=== PATIENT | female | born 1935 | race Caucasian/White ===

== ENCOUNTER → 2018-03-30 11:27 | Outpatient (CLI) | payer OTHER, MEDICARE, SELFPAY ==
[2018-03-30 12:31] LABS: Add Manual Diff / Slide Review NO; Basophils Percent Auto 0.3 % (0-2); Eosinophils Percent Auto 0.5 % (2-4); Hematocrit 34.8 % (36-46); Hemoglobin 11.8 g/dL (12.0-16.0); Lymphocytes Percent Auto 25.2 % (25-40); Mean Corpuscular HGB Conc 33.9 % (30-36); Mean Corpuscular Hemoglobin 33.6 PG (26-34); Mean Corpuscular Volume 99.3 fL (80-100); Neutrophils Absolute Auto 2800 /uL (3000-5900); Platelet Count 327 X10^3/uL (150-400); Red Blood Cell Count 3.51 X10^6/uL (4.0-5.2); Red Cell Distribution Width 12.9 % (11.6-14.8); White Blood Cell Count 4.6 X10^3/uL (4.5-11.0)
[2018-03-30 13:41] LABS: Alanine Aminotransferase 32 IU/L (9-52); Albumin 4.3 g/dL (3.5-5.0); Albumin Globulin Ratio 1.7 (1.0-2.8); Alkaline Phosphatase 65 U/L (38-126); Aspartate Aminotransferase 44 IU/L (14-36); BUN Creatinine Ratio 22.7 (6-22); Bilirubin Total 0.5 mg/dL (0.2-1.3); Blood Urea Nitrogen 25 mg/dL (7-17); Calcium 9.9 mg/dL (8.4-10.2); Carbon Dioxide 28 mmol/L (22-32); Chloride 100 mmol/L (98-107); Estimated Glomerular Filt Rate 47.8 mL/min (>60); Globulin 2.6 g/dL (1.7-4.1); Glucose 78 mg/dL (80-110); HEMOLYSIS < 15 (0-50); Lactate Dehydrogenase 664 U/L (313-618); Potassium 4.8 mmol/L (3.4-5.1); Sodium 136 mmol/L (137-145); Total Protein 6.9 g/dL (6.3-8.2)
[2018-03-30 13:55] LABS: Free T4, Direct Thyroxine 1.11 ng/dL (0.78-2.19)
[2018-03-30 14:08] LABS: Thyroid Stimulating Hormone 0.11 uIU/mL (0.47-4.68)
== END ==
PROVIDERS: Family Provider Nurse Practitioner Gerontology; PCP Family Medicine; Visit Provider Family Medicine
DX: D45 Polycythemia vera (principal); E03.9 Hypothyroidism, unspecified
CPT/HCPCS: 36415; 80053; 83615; 84439; 84443; 85025

== ENCOUNTER → 2018-05-10 11:54 | Outpatient (CLI) | payer OTHER, MEDICARE, SELFPAY ==
[2018-05-10 12:37] LABS: Add Manual Diff / Slide Review NO; Basophils Percent Auto 0.2 % (0-2); Eosinophils Percent Auto 0.4 % (2-4); Hematocrit 36.1 % (36-46); Hemoglobin 12.2 g/dL (12.0-16.0); Lymphocytes Percent Auto 21.1 % (25-40); Mean Corpuscular HGB Conc 33.7 % (30-36); Mean Corpuscular Hemoglobin 33.3 PG (26-34); Mean Corpuscular Volume 98.8 fL (80-100); Neutrophils Absolute Auto 3300 /uL (3000-5900); Neutrophils Percent Auto 67.3 % (50-75); Platelet Count 301 X10^3/uL (150-400); Red Blood Cell Count 3.65 X10^6/uL (4.0-5.2)
[2018-05-10 12:57] LABS: Alanine Aminotransferase 37 IU/L (9-52); Albumin 4.3 g/dL (3.5-5.0); Albumin Globulin Ratio 1.6 (1.0-2.8); Alkaline Phosphatase 65 U/L (38-126); Aspartate Aminotransferase 61 IU/L (14-36); BUN Creatinine Ratio 19.2 (6-22); Bilirubin Total 0.4 mg/dL (0.2-1.3); Blood Urea Nitrogen 23 mg/dL (7-17); Calcium 9.5 mg/dL (8.4-10.2); Carbon Dioxide 28 mmol/L (22-32); Chloride 102 mmol/L (98-107); Estimated Glomerular Filt Rate 43.1 mL/min (>60); Globulin 2.7 g/dL (1.7-4.1); Glucose 86 mg/dL (80-110); HEMOLYSIS 15 (0-50); Lactate Dehydrogenase 748 U/L (313-618); Potassium 4.2 mmol/L (3.4-5.1); Sodium 140 mmol/L (137-145)
[2018-05-10 14:39] LABS: Thyroid Stimulating Hormone 0.08 uIU/mL (0.47-4.68)
[2018-05-10 15:47] LABS: Free T4, Direct Thyroxine 1.19 ng/dL (0.78-2.19)
== END ==
PROVIDERS: Family Provider Nurse Practitioner Gerontology; PCP Family Medicine; Referring Provider Internal Medicine Cardiovascular Disease; Visit Provider Nurse Practitioner Gerontology
DX: D45 Polycythemia vera (principal); E03.9 Hypothyroidism, unspecified
CPT/HCPCS: 36415; 80053; 83615; 84439; 84443; 85025

== ENCOUNTER → 2018-06-23 10:02 | Outpatient (CLI) | payer OTHER, SELFPAY ==
[2018-06-23 11:35] LABS: Add Manual Diff / Slide Review NO; Basophils Percent Auto 0.2 % (0-2); Eosinophils Percent Auto 0.5 % (2-4); Hematocrit 35.5 % (36-46); Hemoglobin 11.9 g/dL (12.0-16.0); Lymphocytes Percent Auto 18.9 % (25-40); Mean Corpuscular HGB Conc 33.5 % (30-36); Mean Corpuscular Hemoglobin 32.8 PG (26-34); Mean Corpuscular Volume 97.8 fL (80-100); Monocytes Percent Auto 13.9 % (3-14); Neutrophils Absolute Auto 3800 /uL (3000-5900); Neutrophils Percent Auto 66.5 % (50-75); Platelet Count 320 X10^3/uL (150-400); Red Blood Cell Count 3.63 X10^6/uL (4.0-5.2); Red Cell Distribution Width 12.9 % (11.6-14.8); White Blood Cell Count 5.8 X10^3/uL (4.5-11.0)
[2018-06-23 11:58] LABS: Alanine Aminotransferase 33 IU/L (9-52); Albumin 4.1 g/dL (3.5-5.0); Albumin Globulin Ratio 1.5 (1.0-2.8); Alkaline Phosphatase 68 U/L (38-126); Aspartate Aminotransferase 55 IU/L (14-36); BUN Creatinine Ratio 19.2 (6-22); Bilirubin Total 0.4 mg/dL (0.2-1.3); Blood Urea Nitrogen 23 mg/dL (7-17); Calcium 9.5 mg/dL (8.4-10.2); Carbon Dioxide 30 mmol/L (22-32); Chloride 101 mmol/L (98-107); Estimated Glomerular Filt Rate 43.1 mL/min (>60); Globulin 2.8 g/dL (1.7-4.1); Glucose 72 mg/dL (80-110); HEMOLYSIS < 15 (0-50); Potassium 4.3 mmol/L (3.4-5.1); Sodium 139 mmol/L (137-145); Total Protein 6.9 g/dL (6.3-8.2)
== END ==
PROVIDERS: PCP Family Medicine; Visit Provider Internal Medicine Cardiovascular Disease
DX: R06.02 Shortness of breath (principal)
CPT/HCPCS: 36415; 80053; 83880; 85025

== ENCOUNTER → 2018-07-07 15:49 | Outpatient (CLI) | payer OTHER, SELFPAY ==
--- NOTE | 2018-07-07 15:52 | DI.RAD.S_ITS ---
PROCEDURE: XR CHEST 2V INDICATIONS: shortness of breath on exertion TECHNIQUE: 2 views of the chest were acquired. COMPARISON: [facility], CHEST 2 VIEW, 03/20/2013, 15:26. [facility], , CHEST 2 VIEW, 03/05/2014, 13:51. FINDINGS: Surgical changes and devices: Stable positioning of left chest AICD. Lungs and pleura: No pleural effusions or pneumothorax. Lungs are clear, aside from minimal basilar subsegmental atelectasis.. Mediastinum: Mediastinal contours are normal. Heart size is normal. Bones and chest wall: No suspicious bony abnormalities. Soft tissues appear unremarkable. IMPRESSION: No acute cardiopulmonary disease. Dictated by: Ed Kruse [facility] Interpreted: Freddy Carrasco MD on 07/07/2018 at 16:09 Approved by: Freddy Carrasco M.D. on 07/07/2018 at 16:45
== END ==
PROVIDERS: PCP Family Medicine; Visit Provider Internal Medicine Cardiovascular Disease
DX: R06.02 Shortness of breath (principal)
CPT/HCPCS: 71046

== ENCOUNTER → 2018-08-01 12:44 | Outpatient (CLI) | payer OTHER, SELFPAY ==
[2018-08-01 13:53] LABS: Erythrocyte Sedimentation Rate 15 MM/HR (0-20)
[2018-08-01 19:05] LABS: C-Reactive Protein Quant < 0.5 mg/dL (<1.0)
== END ==
PROVIDERS: Family Provider Nurse Practitioner Gerontology; PCP Family Medicine; Visit Provider Family Medicine
DX: E03.9 Hypothyroidism, unspecified (principal); M25.551 Pain in right hip; M25.552 Pain in left hip
CPT/HCPCS: 36415; 84443; 85651; 86140

== ENCOUNTER → 2018-08-18 10:48 | Outpatient (CLI) | payer OTHER, SELFPAY ==
--- NOTE | 2018-08-18 | DI.MG.S_ITS ---
BILATERAL DIGITAL SCREENING MAMMOGRAM 3D/2D WITH CAD: 08/18/2018 CLINICAL: Routine screening. Comparison is made to exams dated: 08/02/2017 mammogram, 07/29/2016 mammogram, and 07/28/2015 mammogram - [facility]. There are scattered fibroglandular elements in both breasts. Current study was also evaluated with a Computer Aided Detection (CAD) system. No significant masses, calcifications, or other findings are seen in either breast. There has been no significant interval change. IMPRESSION: NEGATIVE There is no mammographic evidence of malignancy. A 1 year screening mammogram is recommended. This exam was interpreted at Station ID: [id number]. NOTE: For mammograms, a report in lay terms will be sent to the patient. Approximately 15% of breast malignancies will not be visualized mammographically. In the management of a palpable breast mass, a negative mammogram must not discourage biopsy of a clinically suspicious lesion. Electronically Signed By: Benita alanis/joni:08/21/2018 08:33:48 letter sent: Normal Exam ACR BI-RADS Category 1: Negative [id number]
== END ==
PROVIDERS: Family Provider Nurse Practitioner Gerontology; PCP Family Medicine; Visit Provider Family Medicine
DX: Z12.31 Encounter for screening mammogram for malignant neoplasm of breast (principal)
CPT/HCPCS: 77063; 77067

== ENCOUNTER → 2018-11-03 14:28 | Outpatient (CLI) | payer OTHER, SELFPAY ==
[2018-11-03 15:16] LABS: Add Manual Diff / Slide Review NO; Basophils Percent Auto 0.3 % (0-2); Eosinophils Percent Auto 0.5 % (2-4); Hematocrit 37.9 % (36-46); Hemoglobin 12.6 g/dL (12.0-16.0); Lymphocytes Percent Auto 21.3 % (25-40); Mean Corpuscular HGB Conc 33.1 % (30-36); Mean Corpuscular Hemoglobin 33.2 PG (26-34); Mean Corpuscular Volume 100.1 fL (80-100); Monocytes Percent Auto 14.4 % (3-14); Neutrophils Absolute Auto 3300 /uL (1500-7000); Neutrophils Percent Auto 63.5 % (50-75); Platelet Count 313 X10^3/uL (150-400); Red Blood Cell Count 3.78 X10^6/uL (4.0-5.2); Red Cell Distribution Width 12.9 % (11.6-14.8); White Blood Cell Count 5.2 X10^3/uL (4.5-11.0)
[2018-11-03 15:35] LABS: Alanine Aminotransferase 29 IU/L (9-52); Albumin 4.7 g/dL (3.5-5.0); Albumin Globulin Ratio 1.7 (1.0-2.8); Alkaline Phosphatase 71 U/L (38-126); Aspartate Aminotransferase 43 IU/L (14-36); BUN Creatinine Ratio 23.3 (6-22); Bilirubin Total 0.3 mg/dL (0.2-1.3); Blood Urea Nitrogen 28 mg/dL (7-17); Calcium 10.1 mg/dL (8.4-10.2); Carbon Dioxide 29 mmol/L (22-32); Chloride 98 mmol/L (98-107); Estimated Glomerular Filt Rate 43.1 mL/min (>60); Globulin 2.8 g/dL (1.7-4.1); Glucose 96 mg/dL (80-110); HEMOLYSIS < 15 (0-50); Lactate Dehydrogenase 647 U/L (313-618); Potassium 4.7 mmol/L (3.4-5.1); Sodium 139 mmol/L (137-145); Total Protein 7.5 g/dL (6.3-8.2)
== END ==
PROVIDERS: Family Provider Family Medicine; PCP Family Medicine; Visit Provider Nurse Practitioner Gerontology
DX: D45 Polycythemia vera (principal); D75.81 Myelofibrosis
CPT/HCPCS: 36415; 80053; 83615; 85025

== ENCOUNTER → 2018-11-21 10:44 | Outpatient (CLI) | payer OTHER, SELFPAY ==
[2018-11-21 12:59] LABS: Thyroid Stimulating Hormone 0.11 uIU/mL (0.47-4.68)
[2018-11-21 15:04] LABS: Free T3, Triiodothyronine Free 3.15 pg/mL (2.77-5.27); Free T4, Direct Thyroxine 1.48 ng/dL (0.78-2.19)
== END ==
PROVIDERS: PCP Family Medicine; Visit Provider Family Medicine
DX: E03.9 Hypothyroidism, unspecified (principal); E04.1 Nontoxic single thyroid nodule
CPT/HCPCS: 36415; 84439; 84443; 84481

== ENCOUNTER → 2018-12-27 12:47 | Outpatient (CLI) | payer OTHER, SELFPAY ==
[2018-12-27 15:19] LABS: Thyroid Stimulating Hormone 2.33 uIU/mL (0.47-4.68)
== END ==
PROVIDERS: PCP Family Medicine; Visit Provider Family Medicine
DX: E03.9 Hypothyroidism, unspecified (principal)
CPT/HCPCS: 36415; 84443

== ENCOUNTER 2019-04-20 11:53 | Emergency (ER) | payer OTHER, SELFPAY ==
[2019-04-20 12:00] VITALS: BP 143/87; PULSE 60; RESP 20; TEMP 36.6; O2SAT 100
--- NOTE | 2019-04-20 12:14 | ED.FALL ---
HPI - Fall <Gaby Anand PA-C - Last Filed: 04/20/19 17:09> General Chief Complaint: Fall Stated Complaint: fell on to her face, broke her teeth,mltp complain Time Seen by Provider: 04/20/19 11:56 Source: patient Mode of arrival: ambulatory Limitations: no limitations History of Present Illness HPI Narrative: This 84-year-old female states she was walking and pushed over by a dog, pitching forward onto the cement. She hit her hands and lips and chipped some of her teeth. She denies any head contusion, LOC, new neck pain. She denies any headache, n/v or vision change, but states she hit her face hard. She actually went to the dentist 1st due to the chipped teeth and came from there. She states that her lips and teeth are sore, has not noticed other facial pain. She denies pain in her wrists, arms or shoulders, only in the hands. She states her knees are little bit scraped but does not think injured. She was able to walk after she was helped up. She has chronic back pain and sciatica that make walking more difficult but states she does not think any new injury to her back. Related Data Home Medications Medication Instructions Recorded Confirmed MULTIVITAMIN (One Daily 1 tab PO QDAY #0 07/17/12 04/18/19 Multivitamin) [CALCIUM/MG/ZINC] #0 01/05/18 04/18/19 [FLAXSEED] #0 01/05/18 04/18/19 [TURMERIC] #0 01/05/18 04/18/19 magnesium oxide 500 mg PO #0 01/05/18 04/18/19 cholecalciferol (vitamin D3) 1,000 2,000 unit PO QDAY #0 tab 06/19/18 04/18/19 unit tablet fluorouracil 0.5 % topical cream 1 applictn TOP DAILY 08/14/18 04/18/19 furosemide 40 mg tablet 20 mg PO QDAY PRN tab 08/14/18 04/18/19 metronidazole 0.75 % topical gel 1 applictn TOP BID 08/14/18 04/18/19 potassium gluconate 595 mg (99 mg) 595 mg PO DAILY tab 08/14/18 04/18/19 tablet tretinoin 0.025 % topical cream 1 applictn TOP BEDTIME 08/14/18 04/18/19 alpha lipoic acid BID 11/06/18 04/18/19 omeprazole 20 mg capsule,delayed 20 mg PO BID cap 12/15/18 04/18/19 release Previous Rx's Medication Instructions Recorded Disabled Parking Permit ea #1 01/05/18 Disabled Parking Permit ea #1 01/09/18 Jakafi 10 mg PO BID #60 tab 12/07/18 escitalopram 5 mg tablet 5 mg PO DAILY #90 tab 01/10/19 diltiazem CD 120 mg 120 mg PO QDAY #90 tab 01/16/19 capsule,extended release 24 hr levothyroxine 25 mcg tablet 25 mcg PO DAILY #90 tab 02/07/19 dabigatran etexilate 150 mg capsule 150 mg PO BID #180 cap 03/14/19 gabapentin 600 mg tablet 600 mg PO BID #180 tab 03/26/19 oxycodone 5 mg PO Q8H PRN #8 tab 04/20/19 Allergies Allergy/AdvReac Type Severity Reaction Status Date / Time adhesive [ADHESIVE] Allergy Mild SENSITIVE Verified 04/20/19 12:12 hydroxyurea [HYDROXYUREA] Allergy Mild ITCHY Verified 04/20/19 12:12 hydroxyzine [HYDROXYZINE] Allergy Mild ITCHY Verified 04/20/19 12:12 codeine [CODEINE] Allergy Unknown dizzyness/f Verified 04/20/19 12:12 ainting Review of Systems <Gaby Anand PA-C - Last Filed: 04/20/19 17:09> Review of Systems ROS Unobtainable: All systems reviewed & are unremarkable except as noted in HPI and below Exam <Gaby Anand PA-C - Last Filed: 04/20/19 17:09> Narrative Exam Narrative: GENERAL APPEARANCE: Patient sitting comfortably, in no distress. HEENT: No scalp hematoma or ecchymoses, PERRL, EOMI, normal TMs and oropharynx. There are some chipped teeth left upper. She has an irregular 3-4 mm avulsion on the upper lip and an irregular 5 mm partly avulsed, shallow lac on the lower lip, each 1mm depth. No tenderness, visible or palpable abnormality of the facial bones NECK: Supple LUNGS: Clear to auscultation bilaterally. HEART: Rate and rhythm regular without murmur, normal S1 and S2, no S3 or S4. NEUROLOGIC: Alert and oriented, normal speech and coordination. Sensation grossly intact over the upper extremities VASCULAR: Bilateral hand fingertips are warm and pink with brisk cap refill MUSCULOSKELETAL: No point tenderness over the cervical, thoracic, or lumbar spine. Full Csp AROM. No tenderness over the upper arms, forearms, elbows or wrists. Tender over the right thenar eminence and proximal thumb. Strength in the thumb appears to be intact against resistance but tender with resisted movement. No point tenderness elsewhere over the right hand. Fisheries Technician strength intact. Left hand tender over the proximal thumb, thenar eminence and also over the hypothenar area. No tenderness over the fingers. Fisheries Technician is intact and thumb strength intact against resistance. DERMATOLOGIC: Abrasions over the right palm thenar eminence and left palmar surface hypothenar and thenar areas with small avulsions, no active bleeding, no lacerations, avulsions or ecchymoses visualized elsewhere aside from facial areas as above Initial Vital Signs Initial Vital Signs: Vital Signs Temperature 97.9 F 04/20/19 12:00 Pulse Rate 60 04/20/19 12:00 Respiratory Rate 20 04/20/19 12:00 Blood Pressure 143/87 H 04/20/19 12:00 Pulse Oximetry 100 04/20/19 12:00 <Gila Curtis DO - Last Filed: 04/21/19 07:50> Initial Vital Signs Initial Vital Signs: Vital Signs Temperature 97.9 F 04/20/19 12:00 Pulse Rate 60 04/20/19 12:00 Respiratory Rate 20 04/20/19 12:00 Blood Pressure 143/87 H 04/20/19 12:00 Pulse Oximetry 100 04/20/19 12:00 PFSH <Gaby Anand PA-C - Last Filed: 04/20/19 17:09> Medical History Idiopathic peripheral autonomic neuropathy, unspecified (Chronic) Malignant neoplasm of colon, unspecified (Resolved ~2007) Cyst of thyroid (Chronic) Sciatica (Chronic) Low back pain (Chronic) Chronic atrial fibrillation (Chronic) Acquired hypothyroidism (Chronic 02/01/13) Essential hypertension (Chronic) Polycythemia vera (Chronic) Infarction of spleen (Resolved 03/15/14) 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/14) Myelofibrosis (Chronic 05/15/14) Stage 3 chronic kidney disease (Chronic 12/04/14) Postherpetic neuralgia (Acute ~2012) Arthralgia (Chronic) Cardiac arrhythmia (Chronic) Colorectal cancer, stage I (Chronic ~2007) Cutaneous lupus erythematosus (Chronic ~2002) DJD (degenerative joint disease) (Chronic) Disrupted sleep-wake cycle (Chronic) Myelofibrosis (Chronic) Oral lichen planus (Chronic ~2009) Peripheral neuropathy (Chronic ~2012) Polycythemia vera (Chronic ~2006) Surgical History History of bone marrow biopsy (Resolved ~2013) History of local excision of skin lesion (Resolved) History of thyroid surgery (Resolved) S/P medial meniscectomy of right knee (Resolved ~1999) Presence of cardiac pacemaker (~2005) Status post colectomy (~2007) Status post hysterectomy (~1974) Social History marital status: Smoking Status: Never smoker alcohol intake: current (ON OCCASION ) substance use type: does not use well-balanced diet: daily or most days Social History marital status: Smoking Status: Never smoker alcohol intake: current (ON OCCASION ) substance use type: does not use well-balanced diet: daily or most days Course <Gaby Anand PA-C - Last Filed: 04/20/19 17:09> Additional Information: Discussed injuries at length with patient due to her being on anticoagulant. She repeatedly denies any head contusion, neck contusion, neurologic changes. She states that she hit her lip but not the rest of her face or head, did not break glasses. Elected not to do head CT based on her clear history. Discussed with she and her need to return if any new symptoms such as vision change, vomiting, headache, mental status change and they are both agreeable. Advised follow-up with PCP in the next few days for recheck Orders Ordered: Discontinued Medications Oxycodone HCl (Percolone) 5 mg PO NOW ONE Stop: 04/20/19 13:08 Last Admin: 04/20/19 13:18 Dose: 5 mg Vital Signs - 8 hr 04/20/19 12:00 04/20/19 14:04 04/20/19 14:17 Temperature 97.9 F Pulse Rate 60 63 56 L Respiratory Rate 20 16 15 Blood Pressure 143/87 H Blood Pressure [Right Arm] 160/83 H 132/77 Pulse Oximetry 100 100 100 <Gila Curtis DO - Last Filed: 04/21/19 07:50> Orders Ordered: Discontinued Medications Oxycodone HCl (Percolone) 5 mg PO NOW ONE Stop: 04/20/19 13:08 Last Admin: 04/20/19 13:18 Dose: 5 mg Vital Signs - 8 hr 04/20/19 12:00 04/20/19 14:04 04/20/19 14:17 Temperature 97.9 F Pulse Rate 60 63 56 L Respiratory Rate 20 16 15 Blood Pressure 143/87 H Blood Pressure [Right Arm] 160/83 H 132/77 Pulse Oximetry 100 100 100 MDM - Fall <Gaby Anand PA-C - Last Filed: 04/20/19 17:09> Imaging Data R. hand: Radiologist's impression: [address] [address] XRay Report Signed Patient: Isela Haney LMR#: [id number] : [id number]:[id number] Age/Sex: 84 / FDate of Service: 04/20/19 Loc: ED Accession Number: [id number] Procedure: XR hand LT min 3V Ordering Provider: Gaby Anand P.A-C PROCEDURE: XR HAND LT MIN 3V INDICATIONS: fall, thenar pain TECHNIQUE: 3 views of the hand(s) acquired. COMPARISON: [facility], , HAND 3V LEFT, 11/12/2011, 12:20. FINDINGS: Bones: No fractures or dislocations. Carpal bones are normally aligned. No suspicious bony lesions. Soft tissues: No suspicious soft tissue calcifications. IMPRESSION: Arthritic change, no acute trauma found. Dictated by: Freddy Carrasco M.D. on 04/20/2019 at 14:02 Approved by: Freddy Carrasco M.D. on 04/20/2019 at 14:02 L. hand: Radiologist's impression: [address] [place] [address] XRay Report Signed Patient: Isela Haney LMR#: [id number] : 7Acct:[id number] Age/Sex: 84 / FDate of Service: 04/20/19 Loc: ED Accession Number: [id number] Procedure: XR hand LT min 3V Ordering Provider: Gaby Anand P.A-C PROCEDURE: XR HAND LT MIN 3V INDICATIONS: fall, thenar pain TECHNIQUE: 3 views of the hand(s) acquired. COMPARISON: [facility], , HAND 3V LEFT, 11/12/2011, 12:20. FINDINGS: Bones: No fractures or dislocations. Carpal bones are normally aligned. No suspicious bony lesions. Soft tissues: No suspicious soft tissue calcifications. IMPRESSION: Arthritic change, no acute trauma found. Dictated by: Freddy Carrasco M.D. on 04/20/2019 at 14:02 Approved by: Freddy Carrasco M.D. on 04/20/2019 at 14:02 Discharge Plan Departure Patient Disposition: Home Clinical Impression: Avulsion, skin Contusion of hand Qualifiers: Encounter type: initial encounter Laterality: unspecified laterality Qualified Code(s): S60.229A - Contusion of unspecified hand, initial encounter Fall with injury Qualifiers: Encounter type: initial encounter Qualified Code(s): W19.XXXA - Unspecified fall, initial encounter Discharge Date/Time: 04/20/19 14:22 Interventions: ED Discharge Assessment Last Done: 04/20/19 14:21 Instructions: DI for Avulsion Laceration (Not Requiring Sutures), DI for Hand Pain Activity Restrictions/Additional Instructions: Please take your pain medicine as needed, but remember it can make you sleepy. Your x-rays showed significant arthritis which is likely inflamed due to the fall, but there was not a fracture. After discussion, we decided not to x-ray or scanned other areas such as your head or neck since you did not injure them in the fall. The torn skin on your lips should heal on it's own, please keep moisturized and protected with petroleum. As we talked about, you should return immediately/call 911 should you have new symptoms such as vision change, vomiting, headache confusion or mental changes. Otherwise, please follow-up with your PCP for recheck in a few days Prescriptions: New oxycodone 5 mg tablet 5 mg PO Q8H PRN (Reason: acute hand/wrist pain) Qty: 8 RF: 0 No Action MULTIVITAMIN (One Daily Multivitamin) 1 tab PO QDAY Qty: 0 RF: 0 [CALCIUM/MG/ZINC] Qty: 0 RF: 0 [FLAXSEED] Qty: 0 RF: 0 magnesium oxide 400 MG capsule 500 mg PO Qty: 0 RF: 0 [TURMERIC] Qty: 0 RF: 0 Disabled Parking Permit Qty: 1 RF: 0 Disabled Parking Permit Qty: 1 RF: 0 cholecalciferol (vitamin D3) [Vitamin D3] 1,000 unit tablet 2,000 unit PO QDAY Qty: 0 RF: 0 omeprazole 20 mg capsule,delayed release(DR/EC) 20 mg PO BID RF: 0 escitalopram oxalate 5 mg tablet 5 mg PO DAILY Qty: 90 RF: 1 diltiazem HCl 120 mg capsule,extended release 24hr 120 mg PO QDAY Qty: 90 RF: 3 levothyroxine 25 mcg tablet 25 mcg PO DAILY Qty: 90 RF: 2 Pradaxa 150 mg capsule 150 mg PO BID Qty: 180 RF: 3 gabapentin 600 mg tablet 600 mg PO BID Qty: 180 RF: 3 furosemide 40 mg tablet 20 mg PO QDAY PRN (Reason: water retention) RF: 0 potassium gluconate 595 mg (99 mg) tablet 595 mg PO DAILY RF: 0 fluorouracil 0.5 % cream 1 applictn TOP DAILY RF: 0 tretinoin 0.025 % cream 1 applictn TOP BEDTIME RF: 0 metronidazole 0.75 % gel 1 applictn TOP BID RF: 0 alpha lipoic acid 600 mg Capsule BID RF: 0 Jakafi 10 MG tablet 10 mg PO BID Qty: 60 RF: 3 Referrals: Jyoti Mcrae MD [Primary Care Provider] - <Gila Curtis DO - Last Filed: 04/21/19 07:50> Cosign ED Attending Coskeyonnaature Attestation: I was immediately available in the department for consultation. Documentation has been reviewed. I agree with assessment and plan.
--- NOTE | 2019-04-20 12:15 | DI.RAD.S_ITS ---
PROCEDURE: XR HAND RT MIN 3V INDICATIONS: fall, proximal MC pain TECHNIQUE: 3 views of the hand(s) acquired. COMPARISON: [facility], , HAND 3V LEFT, 11/12/2011, 12:20. FINDINGS: Bones: No fractures or dislocations. Carpal bones are normally aligned. No suspicious bony lesions. Soft tissues: No suspicious soft tissue calcifications. IMPRESSION: No trauma. Dictated by: Freddy Carrasco M.D. on 04/20/2019 at 14:02 Approved by: Freddy Carrasco M.D. on 04/20/2019 at 14:03
--- NOTE | 2019-04-20 12:34 | ED_ITS ---
HPI - Fall <Gaby Anand PA-C - Last Filed: 04/20/19 17:09> General Chief Complaint: Fall Stated Complaint: fell on to her face, broke her teeth,mltp complain Time Seen by Provider: 04/20/19 11:56 Source: patient Mode of arrival: ambulatory Limitations: no limitations History of Present Illness HPI Narrative: This 84-year-old female states she was walking and pushed over by a dog, pitching forward onto the cement. She hit her hands and lips and chipped some of her teeth. She denies any head contusion, LOC, new neck pain. She denies any headache, n/v or vision change, but states she hit her face hard. She actually went to the dentist 1st due to the chipped teeth and came from there. She states that her lips and teeth are sore, has not noticed other facial pain. She denies pain in her wrists, arms or shoulders, only in the hands. She states her knees are little bit scraped but does not think injured. She was able to walk after she was helped up. She has chronic back pain and sciatica that make walking more difficult but states she does not think any new injury to her back. Related Data Home Medications Medication Instructions Recorded Confirmed MULTIVITAMIN (One Daily 1 tab PO QDAY #0 07/17/12 04/18/19 Multivitamin) [CALCIUM/MG/ZINC] #0 01/05/18 04/18/19 [FLAXSEED] #0 01/05/18 04/18/19 [TURMERIC] #0 01/05/18 04/18/19 magnesium oxide 500 mg PO #0 01/05/18 04/18/19 cholecalciferol (vitamin D3) 1,000 2,000 unit PO QDAY #0 tab 06/19/18 04/18/19 unit tablet fluorouracil 0.5 % topical cream 1 applictn TOP DAILY 08/14/18 04/18/19 furosemide 40 mg tablet 20 mg PO QDAY PRN tab 08/14/18 04/18/19 metronidazole 0.75 % topical gel 1 applictn TOP BID 08/14/18 04/18/19 potassium gluconate 595 mg (99 mg) 595 mg PO DAILY tab 08/14/18 04/18/19 tablet tretinoin 0.025 % topical cream 1 applictn TOP BEDTIME 08/14/18 04/18/19 alpha lipoic acid BID 11/06/18 04/18/19 omeprazole 20 mg capsule,delayed 20 mg PO BID cap 12/15/18 04/18/19 release Previous Rx's Medication Instructions Recorded Disabled Parking Permit ea #1 01/05/18 Disabled Parking Permit ea #1 01/09/18 Jakafi 10 mg PO BID #60 tab 12/07/18 escitalopram 5 mg tablet 5 mg PO DAILY #90 tab 01/10/19 diltiazem CD 120 mg 120 mg PO QDAY #90 tab 01/16/19 capsule,extended release 24 hr levothyroxine 25 mcg tablet 25 mcg PO DAILY #90 tab 02/07/19 dabigatran etexilate 150 mg capsule 150 mg PO BID #180 cap 03/14/19 gabapentin 600 mg tablet 600 mg PO BID #180 tab 03/26/19 oxycodone 5 mg PO Q8H PRN #8 tab 04/20/19 Allergies Allergy/AdvReac Type Severity Reaction Status Date / Time adhesive [ADHESIVE] Allergy Mild SENSITIVE Verified 04/20/19 12:12 hydroxyurea [HYDROXYUREA] Allergy Mild ITCHY Verified 04/20/19 12:12 hydroxyzine [HYDROXYZINE] Allergy Mild ITCHY Verified 04/20/19 12:12 codeine [CODEINE] Allergy Unknown dizzyness/f Verified 04/20/19 12:12 ainting Review of Systems <Gaby Anand PA-C - Last Filed: 04/20/19 17:09> Review of Systems ROS Unobtainable: All systems reviewed & are unremarkable except as noted in HPI and below Exam <Gaby Anand PA-C - Last Filed: 04/20/19 17:09> Narrative Exam Narrative: GENERAL APPEARANCE: Patient sitting comfortably, in no distress. HEENT: No scalp hematoma or ecchymoses, PERRL, EOMI, normal TMs and oropharynx. There are some chipped teeth left upper. She has an irregular 3-4 mm avulsion on the upper lip and an irregular 5 mm partly avulsed, shallow lac on the lower lip, each 1mm depth. No tenderness, visible or palpable abnormality of the facial bones NECK: Supple LUNGS: Clear to auscultation bilaterally. HEART: Rate and rhythm regular without murmur, normal S1 and S2, no S3 or S4. NEUROLOGIC: Alert and oriented, normal speech and coordination. Sensation grossly intact over the upper extremities VASCULAR: Bilateral hand fingertips are warm and pink with brisk cap refill MUSCULOSKELETAL: No point tenderness over the cervical, thoracic, or lumbar spine. Full Csp AROM. No tenderness over the upper arms, forearms, elbows or wrists. Tender over the right thenar eminence and proximal thumb. Strength in the thumb appears to be intact against resistance but tender with resisted movement. No point tenderness elsewhere over the right hand. Anchorman strength intact. Left hand tender over the proximal thumb, thenar eminence and also over the hypothenar area. No tenderness over the fingers. Anchorman is intact and thumb strength intact against resistance. DERMATOLOGIC: Abrasions over the right palm thenar eminence and left palmar surface hypothenar and thenar areas with small avulsions, no active bleeding, no lacerations, avulsions or ecchymoses visualized elsewhere aside from facial areas as above Initial Vital Signs Initial Vital Signs: Vital Signs Temperature 97.9 F 04/20/19 12:00 Pulse Rate 60 04/20/19 12:00 Respiratory Rate 20 04/20/19 12:00 Blood Pressure 143/87 H 04/20/19 12:00 Pulse Oximetry 100 04/20/19 12:00 <Gila Curtis DO - Last Filed: 04/21/19 07:50> Initial Vital Signs Initial Vital Signs: Vital Signs Temperature 97.9 F 04/20/19 12:00 Pulse Rate 60 04/20/19 12:00 Respiratory Rate 20 04/20/19 12:00 Blood Pressure 143/87 H 04/20/19 12:00 Pulse Oximetry 100 04/20/19 12:00 PFSH <Gaby Anand PA-C - Last Filed: 04/20/19 17:09> Medical History Idiopathic peripheral autonomic neuropathy, unspecified (Chronic) Malignant neoplasm of colon, unspecified (Resolved ~2007) Cyst of thyroid (Chronic) Sciatica (Chronic) Low back pain (Chronic) Chronic atrial fibrillation (Chronic) Acquired hypothyroidism (Chronic 02/01/13) Essential hypertension (Chronic) Polycythemia vera (Chronic) Infarction of spleen (Resolved 03/15/14) 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/14) Myelofibrosis (Chronic 05/15/14) Stage 3 chronic kidney disease (Chronic 12/04/14) Postherpetic neuralgia (Acute ~2012) Arthralgia (Chronic) Cardiac arrhythmia (Chronic) Colorectal cancer, stage I (Chronic ~2007) Cutaneous lupus erythematosus (Chronic ~2002) DJD (degenerative joint disease) (Chronic) Disrupted sleep-wake cycle (Chronic) Myelofibrosis (Chronic) Oral lichen planus (Chronic ~2009) Peripheral neuropathy (Chronic ~2012) Polycythemia vera (Chronic ~2006) Surgical History History of bone marrow biopsy (Resolved ~2013) History of local excision of skin lesion (Resolved) History of thyroid surgery (Resolved) S/P medial meniscectomy of right knee (Resolved ~1999) Presence of cardiac pacemaker (~2005) Status post colectomy (~2007) Status post hysterectomy (~1974) Social History marital status: Smoking Status: Never smoker alcohol intake: current (ON OCCASION ) substance use type: does not use well-balanced diet: daily or most days Social History marital status: Smoking Status: Never smoker alcohol intake: current (ON OCCASION ) substance use type: does not use well-balanced diet: daily or most days Course <Gaby Anand PA-C - Last Filed: 04/20/19 17:09> Additional Information: Discussed injuries at length with patient due to her being on anticoagulant. She repeatedly denies any head contusion, neck contusion, neurologic changes. She states that she hit her lip but not the rest of her face or head, did not break glasses. Elected not to do head CT based on her clear history. Discussed with she and her need to return if any new symptoms such as vision change, vomiting, headache, mental status change and they are both agreeable. Advised follow-up with PCP in the next few days for recheck Orders Ordered: Discontinued Medications Oxycodone HCl (Percolone) 5 mg PO NOW ONE Stop: 04/20/19 13:08 Last Admin: 04/20/19 13:18 Dose: 5 mg Vital Signs - 8 hr 04/20/19 12:00 04/20/19 14:04 04/20/19 14:17 Temperature 97.9 F Pulse Rate 60 63 56 L Respiratory Rate 20 16 15 Blood Pressure 143/87 H Blood Pressure [Right Arm] 160/83 H 132/77 Pulse Oximetry 100 100 100 <Gila Curtis DO - Last Filed: 04/21/19 07:50> Orders Ordered: Discontinued Medications Oxycodone HCl (Percolone) 5 mg PO NOW ONE Stop: 04/20/19 13:08 Last Admin: 04/20/19 13:18 Dose: 5 mg Vital Signs - 8 hr 04/20/19 12:00 04/20/19 14:04 04/20/19 14:17 Temperature 97.9 F Pulse Rate 60 63 56 L Respiratory Rate 20 16 15 Blood Pressure 143/87 H Blood Pressure [Right Arm] 160/83 H 132/77 Pulse Oximetry 100 100 100 MDM - Fall <Gaby Anand PA-C - Last Filed: 04/20/19 17:09> Imaging Data R. hand: Radiologist's impression: [address] [address] XRay Report Signed Patient: Isela Haney LMR#: [id number] : [id number]:[id number] Age/Sex: 84 / FDate of Service: 04/20/19 Loc: ED Accession Number: [id number] Procedure: XR hand LT min 3V Ordering Provider: Gaby Anand P.A-C PROCEDURE: XR HAND LT MIN 3V INDICATIONS: fall, thenar pain TECHNIQUE: 3 views of the hand(s) acquired. COMPARISON: , , HAND 3V LEFT, 11/12/2011, 12:20. FINDINGS: Bones: No fractures or dislocations. Carpal bones are normally aligned. No suspicious bony lesions. Soft tissues: No suspicious soft tissue calcifications. IMPRESSION: Arthritic change, no acute trauma found. Dictated by: Freddy Carrasco M.D. on 04/20/2019 at 14:02 Approved by: Freddy Carrasco M.D. on 04/20/2019 at 14:02 L. hand: Radiologist's impression: [address] [place] [address] XRay Report Signed Patient: Isela Haney LMR#: [id number] : 7Acct:[id number] Age/Sex: 84 / FDate of Service: 04/20/19 Loc: ED Accession Number: [id number] Procedure: XR hand LT min 3V Ordering Provider: Gaby Anand P.A-C PROCEDURE: XR HAND LT MIN 3V INDICATIONS: fall, thenar pain TECHNIQUE: 3 views of the hand(s) acquired. COMPARISON: , , HAND 3V LEFT, 11/12/2011, 12:20. FINDINGS: Bones: No fractures or dislocations. Carpal bones are normally aligned. No suspicious bony lesions. Soft tissues: No suspicious soft tissue calcifications. IMPRESSION: Arthritic change, no acute trauma found. Dictated by: Freddy Carrasco M.D. on 04/20/2019 at 14:02 Approved by: Freddy Carrasco M.D. on 04/20/2019 at 14:02 Discharge Plan Departure Patient Disposition: Home Clinical Impression: Avulsion, skin Contusion of hand Qualifiers: Encounter type: initial encounter Laterality: unspecified laterality Qualified Code(s): S60.229A - Contusion of unspecified hand, initial encounter Fall with injury Qualifiers: Encounter type: initial encounter Qualified Code(s): W19.XXXA - Unspecified fall, initial encounter Discharge Date/Time: 04/20/19 14:22 Interventions: ED Discharge Assessment Last Done: 04/20/19 14:21 Instructions: DI for Avulsion Laceration (Not Requiring Sutures), DI for Hand Pain Activity Restrictions/Additional Instructions: Please take your pain medicine as needed, but remember it can make you sleepy. Your x-rays showed significant arthritis which is likely inflamed due to the fall, but there was not a fracture. After discussion, we decided not to x-ray or scanned other areas such as your head or neck since you did not injure them in the fall. The torn skin on your lips should heal on it's own, please keep moisturized and protected with petroleum. As we talked about, you should return immediately/call 911 should you have new symptoms such as vision change, vomiting, headache confusion or mental changes. Otherwise, please follow-up with your PCP for recheck in a few days Prescriptions: New oxycodone 5 mg tablet 5 mg PO Q8H PRN (Reason: acute hand/wrist pain) Qty: 8 RF: 0 No Action MULTIVITAMIN (One Daily Multivitamin) 1 tab PO QDAY Qty: 0 RF: 0 [CALCIUM/MG/ZINC] Qty: 0 RF: 0 [FLAXSEED] Qty: 0 RF: 0 magnesium oxide 400 MG capsule 500 mg PO Qty: 0 RF: 0 [TURMERIC] Qty: 0 RF: 0 Disabled Parking Permit Qty: 1 RF: 0 Disabled Parking Permit Qty: 1 RF: 0 cholecalciferol (vitamin D3) [Vitamin D3] 1,000 unit tablet 2,000 unit PO QDAY Qty: 0 RF: 0 omeprazole 20 mg capsule,delayed release(DR/EC) 20 mg PO BID RF: 0 escitalopram oxalate 5 mg tablet 5 mg PO DAILY Qty: 90 RF: 1 diltiazem HCl 120 mg capsule,extended release 24hr 120 mg PO QDAY Qty: 90 RF: 3 levothyroxine 25 mcg tablet 25 mcg PO DAILY Qty: 90 RF: 2 Pradaxa 150 mg capsule 150 mg PO BID Qty: 180 RF: 3 gabapentin 600 mg tablet 600 mg PO BID Qty: 180 RF: 3 furosemide 40 mg tablet 20 mg PO QDAY PRN (Reason: water retention) RF: 0 potassium gluconate 595 mg (99 mg) tablet 595 mg PO DAILY RF: 0 fluorouracil 0.5 % cream 1 applictn TOP DAILY RF: 0 tretinoin 0.025 % cream 1 applictn TOP BEDTIME RF: 0 metronidazole 0.75 % gel 1 applictn TOP BID RF: 0 alpha lipoic acid 600 mg Capsule BID RF: 0 Jakafi 10 MG tablet 10 mg PO BID Qty: 60 RF: 3 Referrals: Jyoti Mcrae MD [Primary Care Provider] - <Gila Curtis DO - Last Filed: 04/21/19 07:50> Cosign ED Attending Coskeyonnaature Attestation: I was immediately available in the department for consultation. Documentation has been reviewed. I agree with assessment and plan.
--- NOTE | 2019-04-20 12:59 | PC.NURSE ---
Pt would not allow this rn to visualize broken teeth. States has 2 broken from fall.
[2019-04-20] MEDS: OXYCODONE IR 5 MG TABLET PO (13:18)
[2019-04-20 14:04] VITALS: BP 160/83; PULSE 63; RESP 16; O2SAT 100
[2019-04-20 14:17] VITALS: BP 132/77; PULSE 56; RESP 15; O2SAT 100
== END 2019-04-20 14:22 | disposition home or self-care (01) ==
PROVIDERS: Emergency Provider Internal Medicine; PCP Family Medicine
DX: S60.229A Contusion of unspecified hand, initial encounter (principal); S60.512A Abrasion of left hand, initial encounter; S60.511A Abrasion of right hand, initial encounter; W54.1XXA Struck by dog, initial encounter; W19.XXXA Unspecified fall, initial encounter; Z79.01 Long term (current) use of anticoagulants; Z95.0 Presence of cardiac pacemaker
CPT/HCPCS: 73130; 99283

== ENCOUNTER → 2019-05-17 11:57 | Outpatient (CLI) | payer OTHER, SELFPAY ==
--- NOTE | 2019-05-17 12:00 | DI.RAD.S_ITS ---
PROCEDURE: XR HIP W PEL IF DONE LT MIN 4V INDICATIONS: Bilateral anterior hip pain with left hip clicking TECHNIQUE: AP pelvis with lateral view(s) of the bilateral hip(s). [facility] 13[facility]32. FINDINGS: Bones: No fractures or dislocations. Pelvic ring appears intact. No suspicious bony lesions. Soft tissues: The visualized bowel gas pattern is normal. No suspicious soft tissue calcifications. IMPRESSION: No radiographic abnormalities. If there is continued pain, followup exam or additional imaging such as MRI or CT could be performed for further assessment. Dictated by: Benita Malcolm M.D. on 05/17/2019 at 12:39 Approved by: Benita Malcolm M.D. on 05/17/2019 at 12:45
--- NOTE | 2019-05-17 12:00 | DI.RAD.S_ITS ---
PROCEDURE: XR LUMBAR SPINE 2-3V INDICATIONS: Chronic low back pain with worsening 2 months ago TECHNIQUE: 3 views of the lumbar spine were acquired. COMPARISON: [facility], , -SPINE 2-3 VIEWS, 12/19/2017, 11:11. FINDINGS: Bones: 5 [id number] vertebrae are present. There is normal bony alignment. No vertebral body compression fractures. Intervertebral disc space narrowing, endplate sclerosis, and facet sclerosis is present in the lower lumbar spine. These findings have a similar appearance to the comparison study dated 12/19/17. No suspicious bony lesions. Soft tissues: Overlying bowel gas pattern is normal. No suspicious soft tissue calcifications. IMPRESSION: Stable degenerative change of the lower lumbar spine. No acute compression deformities. Dictated by: Benita Malcolm M.D. on 05/17/2019 at 12:45 Approved by: Benita Malcolm M.D. on 05/17/2019 at 12:46
== END ==
PROVIDERS: PCP Family Medicine; Visit Provider Family Medicine
DX: M47.816 Spondylosis without myelopathy or radiculopathy, lumbar region (principal); M54.5 Low back pain; M25.551 Pain in right hip; M25.552 Pain in left hip
CPT/HCPCS: 72100; 73522

== ENCOUNTER → 2019-07-31 10:06 | Outpatient (CLI) | payer OTHER, SELFPAY ==
[2019-07-31 12:37] LABS: Vitamin D 25 Hydroxy (D3) 53.6 ng/mL (30.0-100.0)
[2019-07-31 12:56] LABS: HEMOLYSIS < 15 (0-50); Total Iron Binding Capacity 370 ug/dL (265-497); Transferrin 306 mg/dL (206-381)
[2019-07-31 14:48] LABS: Iron 101 ug/dL (37-170); Percent Iron Saturation 27 % (15-50)
[2019-07-31 15:20] LABS: Thyroid Stimulating Hormone 3.28 uIU/mL (0.47-4.68)
== END ==
PROVIDERS: PCP Family Medicine; Visit Provider Family Medicine
DX: E03.9 Hypothyroidism, unspecified (principal); R53.83 Other fatigue
CPT/HCPCS: 36415; 82306; 83540; 83550; 84443

== ENCOUNTER → 2019-08-20 13:50 | Outpatient (CLI) | payer OTHER, SELFPAY ==
--- NOTE | 2019-08-20 | DI.MG.S_ITS ---
BILATERAL DIGITAL SCREENING MAMMOGRAM 3D/2D WITH CAD: 08/20/2019 CLINICAL: Routine screening. Comparison is made to exams dated: 08/18/2018 mammogram, 08/02/2017 mammogram, and 07/29/2016 mammogram - [facility]. There are scattered fibroglandular elements in both breasts. Current study was also evaluated with a Computer Aided Detection (CAD) system. No significant masses, calcifications, or other findings are seen in either breast. There has been no significant interval change. IMPRESSION: NEGATIVE There is no mammographic evidence of malignancy. A 1 year screening mammogram is recommended. This exam was interpreted at Station ID: [id number]. NOTE: For mammograms, a report in lay terms will be sent to the patient. Approximately 15% of breast malignancies will not be visualized mammographically. In the management of a palpable breast mass, a negative mammogram must not discourage biopsy of a clinically suspicious lesion. Electronically Signed By: Lolis cintron/joni:08/20/2019 17:07:01 letter sent: Normal Exam ACR BI-RADS Category 1: Negative [id number]
== END ==
PROVIDERS: PCP Family Medicine; Visit Provider Family Medicine
DX: Z12.31 Encounter for screening mammogram for malignant neoplasm of breast (principal)
CPT/HCPCS: 77063; 77067

== ENCOUNTER 2019-08-23 06:56 | Outpatient (CLI) | payer OTHER, SELFPAY ==
[2019-08-23] VITALS (9 sets, daily range): BP systolic 117–142; BP diastolic 57–76; PULSE 50–62; RESP 16–18; TEMP 36.1; O2SAT 97–100
--- NOTE | 2019-08-23 06:57 | DI.RAD.S_ITS ---
PROCEDURE: PAIN L/S FACET INJ/BLK 1ST ANTOLIN COMPARISON: None. INDICATIONS: SPONDYLOSIS FINDINGS: Fluoroscopic spot filming was performed to verify placement of spinal needles at the L4-L5, L5-S1 level(s), as labeled on the films. Appropriate location(s) of the needle tip(s) was confirmed by injection of iodinated contrast. Dictated by: Hugo Warner M.D. on 08/23/2019 at 8:54 Approved by: Hugo Warner M.D. on 08/23/2019 at 8:55
[2019-08-23] MEDS: MIDAZOLAM 5 MG/5 ML VIAL IV (08:11)
[2019-08-23] MEDS: fentaNYL 100 MCG/2 ML INJ 50 MCG IV (08:12)
[2019-08-23] MEDS: LIDOCAINE 1% 20 ML 10 ML INJ (08:19)
[2019-08-23] MEDS: IOPAMIDOL 15 ML VIAL 3 ML INJ (08:19)
[2019-08-23] MEDS: BETAMETHASONE 30 MG/5 ML MDV 12 MG INJ (08:20)
[2019-08-23] MEDS: BUPIVACAINE 0.5% (PF) VIAL 2 ML INJ (08:20)
--- NOTE | 2019-08-23 08:23 | PC.NURSE ---
ASSISTING PT OFF TABLE AND TRANSPORTING TO POST PROC AREA IN STABLE CONDITION. PASSING RN CARE OF PT OFF TO VINCENZO Noguera RN
--- NOTE | 2019-08-23 08:37 | P.PCN_ITS ---
Procedures Date/Time Date of procedure: 08/23/19 Time of procedure: 08:37 General Procedure description: PREOP DIAGNOSIS 1. FACET ARTHROPATHY 2. AXIAL LBP 3. MULTILEVEL DDD POST OP DIAGNOSIS 1. FACET ARTHROPATHY 2. AXIAL LBP 3. MULTILEVEL DDD PROCEDURES 1. FLUORSCOPICALLY GUIDED CONTRAST CONTROLLED FACET JOINT INJECTIONS BILATERAL L4/5, L5/S1 PHYSICIAN: Bebeto Doshi, DO INDICATIONS Pj is referred by Dr. Mcrae for treatment of Axial LBP FINDINGS Multilevel Facet Arthropathy with Clinically significant axial LBP DESCRIPTION OF PROCEDURE Fluoroscopically guided, contrast-controlled bilateral L4/5, L5/S1 facet joint injections. Following review of allergy and review of potential side effects and complications, including, but not necessarily limited to, infection, allergic reaction, local tissue breakdown, stroke, temporary or permanent nerve injury, paralysis, and possible , the patient indicated that the patient understood and agreed to proceed. An informed consent document was signed by the patient, witnessed by a nurse, and placed in the patient's chart. Additionally, other treatment options including medications, modalities, and physical therapy were reviewed with the patient. After review of previous anaesthesic history and IV conscious sedation the patient was deemed safe to proceed with todays procedure with IV conscious sedation as ASA class II designation. Safety time-out was performed to confirm patient ID, procedure to be performed and site of procedure. IV sedation was accomplished with a combination of 2mg of Versed and 25mcg of Fentanyl was administered by the RN after DO order, titrated to patient comfort during the course of the procedure while the patient remained responsive to all verbal commands In the prone position, following sterile prep and drape of the lumbar region, the posterior aspect of the L4/5, L5/S1 facet joints were identified fluoroscopically. The skin was anesthetized via a 25-gauge 1.5-inch needle with 1% lidocaine solution into the corresponding facet joints. At this point, a 22- gauge 3.5-inch spinal needle was atraumatically introduced and advanced under fluoroscopic guidance into the corresponding facet joints. Following negative a spiration, injections of approximately 0.2-cc of Isovue 200 confirmed interarticular placement without vascular uptake. The identical procedure was then performed at the L4/5, L5/S1 facet joints on the left. Radiological data, including multiple fluoroscopic views of the lumbosacral spine, reveal a spinal needle at the L4/5, L5/S1 facet joints bilaterally. Subsequent views show flow of contrast material both superiorly and inferiorly within the joint space without vascular or intrathecal uptake. At this point, a total of 0.5 cc including a mixture of 0.25cc Marcaine and 0.25cc betamethasone was injected without complication into each of the corresponding facet joints. The patient tolerated the procedure well without signs or symptoms of complications prior to transfer to the recovery area continued monitoring without incident. The patient was then transferred to the recovery area where they were observed for an appropriate period of time after the injection. The patient reported a VAS score of 7 prior to the procedure and a post- procedure VAS of 0. Total Fluoroscopy Time: 20.3 seconds Total Conscious Sedation Time: 24min POST OP INSTRUCTIONS The patient was provided a Pain Log to continue to record their response to the target-specific procedure prior to follow-up visit with their referring physician. Additionally, specific post-injection care instructions and a contact number to our office were provided if concerns arise regarding possible complications associated with the procedure are suspected. Bebeto Doshi DO Complications: none
--- NOTE | 2019-08-23 09:50 | PC.NURSE ---
Late entry: Discharge note-Arrived for post procedure monitoring. Patient drowsy on arrival. Respirations regular and unlabored. VSS, O2 Sat WNL on RA. Pain level 0/10. No unusual numbness or tingling to lower extremities. Tolerating po without nausea. Able to stand and transfer to W/C without assist. Discharge instructions given and explained with good understanding by patient and spouse. Discharged to home w/c to car at 0900.
== END 2019-08-23 09:00 ==
LOC: RAD 06:56
PROVIDERS: PCP Family Medicine; Visit Provider Physical Medicine & Rehabilitation
DX: M47.816 Spondylosis without myelopathy or radiculopathy, lumbar region (principal); M47.817 Spondylosis without myelopathy or radiculopathy, lumbosacral region; M54.5 Low back pain; M51.36 Other intervertebral disc degeneration, lumbar region; M51.37 Other intervertebral disc degeneration, lumbosacral region
CPT/HCPCS: 64493; 64494; 99152; J0702; J2250; J3010

== ENCOUNTER → 2019-10-10 12:23 | Outpatient (CLI) | payer OTHER, SELFPAY ==
[2019-10-10 13:04] LABS: Add Manual Diff / Slide Review NO; Basophils Absolute Auto 0 /uL (0-100); Basophils Percent Auto 0.4 % (0-2); Eosinophils Absolute Auto 0 /uL (0-450); Eosinophils Percent Auto 0.5 % (2-4); Hematocrit 32.4 % (36-46); Hemoglobin 11.1 g/dL (12.0-16.0); Lymphocytes Absolute Auto 900 /uL (1100-4500); Lymphocytes Percent Auto 16.8 % (25-40); Mean Corpuscular HGB Conc 34.4 % (30-36); Mean Corpuscular Hemoglobin 34.6 PG (26-34); Mean Corpuscular Volume 100.5 fL (80-100); Monocytes Absolute Auto 600 /uL (0-900); Monocytes Percent Auto 11.3 % (3-14); Neutrophils Absolute Auto 3900 /uL (1500-7000); Platelet Count 325 X10^3/uL (150-400); Red Blood Cell Count 3.22 X10^6/uL (4.0-5.2); Red Cell Distribution Width 13.1 % (11.6-14.8); White Blood Cell Count 5.5 X10^3/uL (4.5-11.0)
[2019-10-10 14:08] LABS: B Type Natriuretic Peptide 314 (<100)
== END ==
PROVIDERS: PCP Family Medicine; Visit Provider Internal Medicine Cardiovascular Disease
DX: R06.00 Dyspnea, unspecified (principal)
CPT/HCPCS: 36415; 83880; 85025

== ENCOUNTER → 2019-10-23 12:52 | Outpatient (CLI) | payer OTHER, MEDICARE, SELFPAY ==
[2019-10-23 14:46] LABS: BUN Creatinine Ratio 19.3 (6-22); Blood Urea Nitrogen 27 mg/dL (7-17); Calcium 9.4 mg/dL (8.4-10.2); Carbon Dioxide 30 mmol/L (22-32); Chloride 99 mmol/L (98-107); Glucose 82 mg/dL (80-110); HEMOLYSIS < 15 (0-50); Potassium 3.9 mmol/L (3.4-5.1); Sodium 137 mmol/L (137-145)
== END ==
PROVIDERS: PCP Family Medicine; Visit Provider Internal Medicine Cardiovascular Disease
DX: I10 Essential (primary) hypertension (principal)
CPT/HCPCS: 36415; 80048

== ENCOUNTER → 2019-11-12 10:45 | Outpatient (CLI) | payer OTHER, SELFPAY ==
[2019-11-12 11:48] LABS: Blood Urea Nitrogen 28 mg/dL (7-17); Calcium 9.8 mg/dL (8.4-10.2); Carbon Dioxide 30 mmol/L (22-32); Chloride 103 mmol/L (98-107); Glucose 81 mg/dL (80-110); HEMOLYSIS < 15 (0-50); Potassium 4.3 mmol/L (3.4-5.1); Sodium 139 mmol/L (137-145)
== END ==
PROVIDERS: PCP Family Medicine; Visit Provider Internal Medicine Cardiovascular Disease
DX: I10 Essential (primary) hypertension (principal)
CPT/HCPCS: 36415; 80048

== ENCOUNTER → 2020-04-07 10:19 | Outpatient (CLI) | payer OTHER, SELFPAY ==
[2020-04-07 16:28] LABS: Thyroid Stimulating Hormone 0.05 uIU/mL (0.47-4.68)
== END ==
PROVIDERS: PCP Family Medicine; Referring Provider Family Medicine; Visit Provider Family Medicine
DX: E03.9 Hypothyroidism, unspecified (principal)
CPT/HCPCS: 36415; 84443

== ENCOUNTER → 2020-05-02 10:57 | Outpatient (CLI) | payer OTHER, SELFPAY ==
--- NOTE | 2020-05-02 11:01 | DI.RAD.S_ITS ---
PROCEDURE: FL BARIUM SWALLOW INDICATIONS: Dysphagia of solids and liquids rule out motility disorder COMPARISON: None. FINDINGS: Function: There is normal esophageal peristalsis with minimal episodes of mild tertiary contractions resulting in delayed transit of ingested contrast. No elicited gastroesophageal reflux. Morphology: Air-contrast images demonstrate normal mucosal morphology. Single contrast views show no esophageal strictures, extrinsic mass effects, or diverticula. Limited images of the stomach demonstrate normal appearance. IMPRESSION: Very few episodes of mild tertiary esophageal contractions resulting in delayed transit of ingested contrast. Otherwise, unremarkable esophagram. Dictated by: Farrukh Craft M.D. on 05/02/2020 at 16:10 Approved by: Farrukh Craft M.D. on 05/02/2020 at 16:12
== END ==
PROVIDERS: PCP Family Medicine; Referring Provider Specialist; Visit Provider Specialist
DX: R13.10 Dysphagia, unspecified (principal)
CPT/HCPCS: 74220

== ENCOUNTER → 2020-05-06 11:56 | Outpatient (CLI) | payer OTHER, SELFPAY ==
[2020-05-06 12:50] LABS: Add Manual Diff / Slide Review NO; Basophils Absolute Auto 0 /uL (0-100); Basophils Percent Auto 0.3 % (0-2); Eosinophils Absolute Auto 0 /uL (0-450); Eosinophils Percent Auto 0.5 % (2-4); Hematocrit 34.6 % (36-46); Hemoglobin 11.7 g/dL (12.0-16.0); Lymphocytes Absolute Auto 1100 /uL (1100-4500); Lymphocytes Percent Auto 23.4 % (25-40); Mean Corpuscular HGB Conc 33.7 % (30-36); Mean Corpuscular Hemoglobin 33.8 PG (26-34); Mean Corpuscular Volume 100.1 fL (80-100); Monocytes Absolute Auto 700 /uL (0-900); Monocytes Percent Auto 14.2 % (3-14); Neutrophils Absolute Auto 2900 /uL (1500-7000); Neutrophils Percent Auto 61.6 % (50-75); Platelet Count 338 X10^3/uL (150-400); Red Blood Cell Count 3.45 X10^6/uL (4.0-5.2); Red Cell Distribution Width 13.3 % (11.6-14.8); White Blood Cell Count 4.7 X10^3/uL (4.5-11.0)
[2020-05-06 13:01] LABS: HEMOLYSIS < 15 (0-50)
[2020-05-06 13:15] LABS: NT-proBNP (BNP-Adult 18+) 304 pg/mL (<450)
[2020-05-06 13:38] LABS: BUN Creatinine Ratio 19.4 (6-22); Blood Urea Nitrogen 27 mg/dL (7-17); Calcium 9.8 mg/dL (8.4-10.2); Carbon Dioxide 28 mmol/L (22-32); Chloride 100 mmol/L (98-107); Estimated Glomerular Filt Rate 36.2 mL/min (>60); Glucose 85 mg/dL (80-110); Potassium 3.7 mmol/L (3.4-5.1); Sodium 137 mmol/L (137-145)
== END ==
PROVIDERS: PCP Family Medicine; Referring Provider Internal Medicine Cardiovascular Disease; Visit Provider Internal Medicine Cardiovascular Disease
DX: R06.02 Shortness of breath (principal)
CPT/HCPCS: 36415; 80048; 83880; 85025

== ENCOUNTER → 2020-05-21 09:42 | Outpatient (CLI) | payer OTHER, SELFPAY ==
[2020-05-21 13:37] LABS: Thyroid Stimulating Hormone < 0.015 uIU/mL (0.47-4.68)
== END ==
PROVIDERS: PCP Family Medicine; Referring Provider Family Medicine; Visit Provider Family Medicine
DX: E03.9 Hypothyroidism, unspecified (principal)
CPT/HCPCS: 36415; 84443

== ENCOUNTER 2020-06-20 21:33 | Inpatient (IN) | payer OTHER, MEDICARE, SELFPAY ==
[2020-06-20 22:02] VITALS: BP 137/64; PULSE 82; RESP 18; TEMP 38.4; O2SAT 92; BMI 22.3
--- NOTE | 2020-06-20 22:11 | DI.RAD.S_ITS ---
PROCEDURE: XR CHEST 1V INDICATIONS: eval for fever/pneumonia TECHNIQUE: One view of the chest was acquired. COMPARISON: [facility], CR, XR CHEST 2V, 07/07/2018, 15:31. FINDINGS: Surgical changes and devices: Dual lead cardiac pacer is unchanged. Lungs and pleura: New pulmonary radiopacities are present the right lung base. Mediastinum: Mediastinal contours appear normal. Heart size is mildly enlarged. Bones and chest wall: No suspicious bony lesions. Overlying soft tissues appear unremarkable. IMPRESSION: Mild cardiomegaly and right basilar pulmonary airspace opacities suspicious for aspiration/infection. Short interval followup is recommended with resolution of the patient's symptoms to ensure there is no underlying pulmonary pathology. Dictated by: Benita Malcolm M.D. on 06/21/2020 at 7:30 Approved by: Benita Malcolm M.D. on 06/21/2020 at 7:31
[2020-06-20 22:19] VITALS: TEMP 38.4
[2020-06-20] MEDS: ACETAMINOPHEN 325 MG TABLET 650 MG PO (22:19)
[2020-06-20] MEDS: SODIUM CHLORIDE 0.9% 1,000 ML 150 ML IV (22:19)
[2020-06-20 22:24] LABS: Add Manual Diff / Slide Review NO; Basophils Absolute Auto 0 /uL (0-100); Basophils Percent Auto 0.3 % (0-2); Eosinophils Absolute Auto 0 /uL (0-450); Hematocrit 28.1 % (36-46); Hemoglobin 9.6 g/dL (12.0-16.0); Lymphocytes Absolute Auto 500 /uL (1100-4500); Lymphocytes Percent Auto 5.3 % (25-40); Mean Corpuscular HGB Conc 34.2 % (30-36); Mean Corpuscular Hemoglobin 33.9 PG (26-34); Mean Corpuscular Volume 99.3 fL (80-100); Monocytes Absolute Auto 800 /uL (0-900); Monocytes Percent Auto 8.9 % (3-14); Neutrophils Absolute Auto 8000 /uL (1500-7000); Neutrophils Percent Auto 85.5 % (50-75); Platelet Count 246 X10^3/uL (150-400); Red Blood Cell Count 2.84 X10^6/uL (4.0-5.2); Red Cell Distribution Width 13.3 % (11.6-14.8); White Blood Cell Count 9.4 X10^3/uL (4.5-11.0)
[2020-06-20 22:26] LABS: INR 1.3 (0.9-1.3); Prothrombin Time 15.4 SECONDS (10.1-12.7)
[2020-06-20 22:28] LABS: PTT Partial Thromboplastin Tim 53 SECONDS (26.4-36.2)
[2020-06-20 22:31] VITALS: PULSE 76; RESP 22; O2SAT 91
[2020-06-20 22:37] LABS: Creatine Kinase 149 U/L (30-135); Ethanol (ETOH) < 10 mg/dL; Lipase 76 U/L (23-300)
[2020-06-20 22:38] LABS: Alanine Aminotransferase 55 IU/L (<35); Albumin 4.1 g/dL (3.5-5.0); Albumin Globulin Ratio 1.3 (1.0-2.8); Alkaline Phosphatase 83 U/L (38-126); Aspartate Aminotransferase 108 IU/L (14-36); BUN Creatinine Ratio 16.9 (6-22); Bilirubin Total 0.8 mg/dL (0.2-1.3); Blood Urea Nitrogen 26 mg/dL (7-17); Calcium 8.7 mg/dL (8.4-10.2); Carbon Dioxide 26 mmol/L (22-32); Chloride 95 mmol/L (98-107); Estimated Glomerular Filt Rate 32.2 mL/min (>60); Globulin 3.2 g/dL (1.7-4.1); Glucose 119 mg/dL (80-110); HEMOLYSIS 19 (0-50); Potassium 3.3 mmol/L (3.4-5.1); Sodium 130 mmol/L (137-145); Total Protein 7.3 g/dL (6.3-8.2)
[2020-06-20 22:49] LABS: Procalcitonin 0.24 ng/mL (<0.5); Troponin I 0.024 ng/mL (0.01-0.034)
[2020-06-20 22:52] LABS: CKMB % Relative Index 0.2 % (1.5-5.0); Creatine Kinase MB 0.37 ng/mL (<2.37)
[2020-06-20 22:57] LABS: Ammonia (NH3) < 9 umol/L (9-30)
[2020-06-20 23:00] VITALS: BP 120/63; PULSE 79; RESP 28; O2SAT 93
--- NOTE | 2020-06-20 23:06 | ED_ITS ---
HPI - General Adult General Chief complaint: Fever Stated complaint: unsteady on legs, weakness Time Seen by Provider: 06/20/20 21:50 Source: patient and family () Mode of arrival: Ambulatory Limitations: altered mental status History of Present Illness HPI narrative: Patient is an 85-year-old female. History of atrial fibrillation. Is on anticoagulation. Also has a history of hypothyroidism. Came in for evaluation with her for weakness in her lower extremities. Patient states that she has been weak in her lower extremities for many weeks now if not months. She has seen her primary doctor. She states that she has been seen by Orthopedics and has had injections in her back. She states that she has had problems getting around at home. She does use a cane and also uses furniture to get around. She states that today for an unknown reason she is became very fatigued. She states that she slid off the bench that she was sitting on. She states she did not hit her head. There was no loss of consciousness. She states she did not fall she just became very weak and slid off the bench. She then laid on the ground for period of time. She states that she was so weak that she could not stand up. Her states that he could not help her up. He contacted the nurse advice line with her insurance company and while he was on the phone with the nurse advice line the patient was able to stand up. The patient states that for some unknown reason again she regained strength in her lower extremities and was able to stand. Patient states that she feels extremely fatigued. She admits that this potentially is not new but it is worse over the past 24-48 hours. Denies any other associated symptoms. Related Data Home Medications Medication Instructions Recorded Confirmed multivitamin 1 tab PO DAILY #0 07/17/12 06/21/20 flaxseed oil 1,000 mg PO DAILY #0 01/05/18 06/21/20 magnesium oxide 500 mg PO DAILY #0 01/05/18 06/21/20 cholecalciferol (vitamin D3) 25 2,000 unit PO QDAY #0 tab 06/19/18 06/21/20 mcg (1,000 unit) tablet furosemide 40 mg tablet 20 mg PO QDAY tab 11/21/19 06/21/20 potassium chloride 10 mEq 10 meq PO DAILY 11/21/19 06/21/20 capsule,extended release alpha lipoic acid 600 mg PO BID 06/21/20 06/21/20 biotin 10,000 mcg PO DAILY 06/21/20 06/21/20 escitalopram oxalate 5 mg PO DAILY 06/21/20 06/21/20 melatonin 5 mg PO BEDTIME 06/21/20 06/21/20 metronidazole 1 applic TOPICAL DAILY 06/21/20 06/21/20 Previous Rx's Medication Instructions Recorded Jakafi 10 mg PO BID #60 tab 12/07/18 diltiazem HCl 120 mg 120 mg PO QDAY #90 tab 01/16/19 capsule,extended release 24 hr dabigatran etexilate 150 mg capsule 150 mg PO BID #180 cap 03/14/19 omeprazole 20 mg capsule,delayed 20 mg PO DAILY #90 cap 12/05/19 release levothyroxine 25 mcg tablet 25 mcg PO DAILY #90 tab 04/09/20 gabapentin 600 mg tablet 600 mg PO BID #90 tab 06/10/20 Allergies Allergy/AdvReac Type Severity Reaction Status Date / Time adhesive [ADHESIVE] Allergy Mild SENSITIVE Verified 06/20/20 22:02 hydroxyurea [HYDROXYUREA] Allergy Mild ITCHY Verified 06/20/20 22:02 hydroxyzine [HYDROXYZINE] Allergy Mild ITCHY Verified 06/20/20 22:02 codeine [CODEINE] Allergy Unknown dizzyness/f Verified 06/20/20 22:02 ainting Review of Systems Constitutional Constitutional: Reports fatigue, Denies fever(s), Denies frequent falls, Reports lethargy, Reports malaise and Reports weakness Eyes Eyes: Denies change in vision ENT Ears, Nose, Mouth, and Throat: Reports disequilibrium and Denies sore throat Cardiovascular Cardiovascular: Denies chest pain, Denies rapid heart rate, Denies lightheadedn ess and Denies dyspnea Respiratory Respiratory: Denies cough and Denies dyspnea Gastrointestinal Gastrointestinal: Denies abdominal pain, Denies change in bowel habits, Denies nausea and Denies vomiting Genitourinary Genitourinary: Denies dysuria Genitourinary: Denies dysuria Musculoskeletal Musculoskeletal: Reports back pain, Reports muscle weakness and Reports myalgias Integumentary/Breasts Skin/Breast: Denies lesions and Denies rash Neurologic Neurologic: Reports confusion, Denies frequent falls, Reports disequilibrium and Reports weakness Psychiatric Psychiatric: Reports confusion Endocrine Endocrine: Reports fatigue Hematologic/Lymphatic Hematologic/Lymphatic: Denies easy bleeding and Denies easy bruising Allergic/Immunologic Allergic/Immunologic: Denies urticaria Patient History Medical History Acquired hypothyroidism (Chronic 02/01/13) Arthralgia (Chronic) Cardiac arrhythmia (Chronic) Chronic anticoagulation (Chronic) Chronic atrial fibrillation (Chronic) Colorectal cancer, stage I (Chronic ~2007) Cutaneous lupus erythematosus (Chronic ~2002) Cyst of thyroid (Chronic) Disrupted sleep-wake cycle (Chronic) 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/14) DJD (degenerative joint disease) (Chronic) Essential hypertension (Chronic) Facet arthropathy, lumbosacral (Chronic) GERD (gastroesophageal reflux disease) (Acute) Idiopathic peripheral autonomic neuropathy, unspecified (Chronic) Infarction of spleen (Resolved 03/15/14) Low back pain (Chronic) Lumbosacral spondylosis with radiculopathy (Acute) Malignant neoplasm of colon, unspecified (Resolved ~2007) Myelofibrosis (Chronic 05/15/14) Myelofibrosis (Chronic) Oral lichen planus (Chronic ~2009) Peripheral neuropathy (Chronic ~2012) Polycythemia vera (Chronic) Polycythemia vera (Chronic ~2006) Postherpetic neuralgia (Acute ~2012) Sciatica (Chronic) Spondylosis without myelopathy or radiculopathy, lumbosacral region (Acute) Stage 3 chronic kidney disease (Chronic 12/04/14) Surgical History History of bone marrow biopsy (Resolved ~2013) History of local excision of skin lesion (Resolved) History of thyroid surgery (Resolved) Presence of cardiac pacemaker (~2005) S/P medial meniscectomy of right knee (Resolved ~1999) Status post colectomy (~2007) Status post hysterectomy (~1974) Social History marital status: household members: spouse Smoking Status: Never smoker alcohol intake: current substance use type: does not use well-balanced diet: daily or most days Smoking Status: Never smoker alcohol intake frequency: 0-2 drinks per day Substance Use Type: does not use Exam Initial Vital Signs Initial Vital Signs: Vital Signs Temperature 101.2 F H 06/20/20 22:02 Pulse Rate 82 06/20/20 22:02 Respiratory Rate 18 06/20/20 22:02 Blood Pressure 137/64 06/20/20 22:02 Pulse Oximetry 92 06/20/20 22:02 Const General: cooperative and frail appearing Limitations: mental status not altered HENMT Head: normal to inspection and normocephalic Resp Effort & Inspection: normal respiratory effort Auscultation: clear to auscultation bilaterally Cardio Rate: regular rate Rhythm: regular rhythm GI Inspection: non-distended Palpation: soft and No firm Skin Lesions: no lesions Rashes: no rashes Neuro General: patient alert, patient awake and patient oriented x3 Cognition: normal cognition Speech: speech normal Sensory Exam: no sensory deficits noted Extrem General: normal to inspection, capillary refill normal and No edema Other: Patient was able to stand and walk with did require quite a bit of help from nursing staff Psych Appearance: well kempt Scores GCS [place] coma scale eye opening: Spontaneous Jessica coma scale verbal response: Orientated [place] coma scale motor response: Obey commands Jessica coma scale total score: 15 Course Orders Ordered: ED Orders 06/20/20 21:55 Complete Blood Count AUTO DIFF Stat Comprehensive Metabolic Panel Stat Ethanol (ETOH) Stat Lactate (Lactic Acid) Stat Lipase Stat Partial Thromboplastin Time Stat Procalcitonin Stat Prothrombin Time INR Stat Thyroid Stimulating Hormone Stat Troponin & CK Cardiac Panel Stat 06/20/20 22:11 XR chest 1V Stat 06/20/20 22:12 EKG-12 Lead Stat 06/20/20 22:30 Ammonia (NH3) Stat Blood Culture Stat 06/21/20 00:04 Consult to Physician Stat Consult to Physician Urgent 06/21/20 01:36 Urinalysis and Microscopic Stat Acetaminophen (Tylenol) 650 mg PO Q6HR PRN PRN Reason: Fever/Mild Pain (1-3) Sodium Chloride (Normal Saline 0.9%) 1,000 mls @ 150 mls/hr IV CONT CARLOS Last Infusion: 06/21/20 01:49 Dose: 150 mls/hr Documented by: Infusion: 06/21/20 00:07 Dose: 0 mls/hr Documented by: Admin: 06/20/20 22:19 Dose: 150 mls/hr Documented by: BLADIMIR Ondansetron HCl (Zofran) 4 mg IV Q4HR PRN PRN Reason: Nausea And Vomiting Discontinued Medications Acetaminophen (Tylenol) 650 mg PO NOW ONE Stop: 06/20/20 22:11 Last Admin: 06/20/20 22:19 Dose: 650 mg Documented by: BLADIMIR Levofloxacin (Levaquin) 750 mg in 150 mls @ 100 mls/hr IV NOW ONE Stop: 06/21/20 01:22 Last Infusion: 06/21/20 01:49 Dose: 0 mls/hr Documented by: Admin: 06/20/20 23:56 Dose: 100 mls/hr Documented by: XAVIER Vital Signs Vital signs: Vital Signs - 8 hr 06/20/20 22:02 06/20/20 22:19 06/20/20 22:31 Temperature 101.2 F H 101.2 F H Pulse Rate 82 76 Respiratory Rate 18 22 Blood Pressure 137/64 Pulse Oximetry 92 91 06/20/20 23:00 06/20/20 23:09 06/20/20 23:30 Temperature Pulse Rate 79 72 67 Respiratory Rate 28 H 18 18 Blood Pressure 120/63 92/54 L 93/53 L Pulse Oximetry 93 91 92 06/21/20 00:00 06/21/20 00:11 Temperature 99 F Pulse Rate 63 Respiratory Rate 18 Blood Pressure 99/52 L Pulse Oximetry 96 Medical Decision Making Lab Data Lab results reviewed: Yes I reviewed the patient's lab results. Result diagrams: 06/20/20 21:55 06/20/20 21:55 Labs: Lab Results 06/20/20 06/20/20 06/20/20 Range/Units 21:55 21:55 21:55 WBC 9.4 (4.5-11.0) X10^3/uL RBC 2.84 L (4.0-5.2) X10^6/uL Hgb 9.6 L (12.0-16.0) g/dL Hct 28.1 L (36-46) % MCV 99.3 (80-100) fL MCH 33.9 (26-34) PG MCHC 34.2 (30-36) % RDW 13.3 (11.6-14.8) % Plt Count 246 (150-400) X10^3/uL Neut % (Auto) 85.5 H (50-75) % Lymph % (Auto) 5.3 L (25-40) % [place] % (Auto) 8.9 (3-14) % Eos % (Auto) 0.0 L (2-4) % Baso % (Auto) 0.3 (0-2) % Neut # (Auto) 8000 H (1795-0218) /uL Lymph # (Auto) 500 L (6408-2055) /uL [place] # (Auto) 800 (0-900) /uL Eos # (Auto) 0 (0-450) /uL Baso # (Auto) 0 (0-100) /uL PT 15.4 H (10.1-12.7) SECONDS INR 1.3 (0.9-1.3) APTT 53 H (26.4-36.2) SECONDS Sodium 130 L (137-145) mmol/L Potassium 3.3 L (3.4-5.1) mmol/L Chloride 95 L (98-107) mmol/L Carbon Dioxide 26 (22-32) mmol/L BUN 26 H (7-17) mg/dL Creatinine 1.54 H (0.52-1.04) mg/dL Estimated GFR 32.2 L (>60) mL/min BUN/Creatinine Ratio 16.9 (6-22) Glucose 119 H (80-110) mg/dL Lactate (0.7-2.1) mmol/L Calcium 8.7 (8.4-10.2) mg/dL Total Bilirubin 0.8 (0.2-1.3) mg/dL AST 108 H (14-36) IU/L ALT 55 H (<35) IU/L Alkaline Phosphatase 83 (38-126) U/L Ammonia (9-30) umol/L Total Creatine Kinase (30-135) U/L CK-MB (CK-2) (<2.37) ng/mL CK-MB (CK-2) Rel Index (1.5-5.0) % Troponin I (0.01-0.034) ng/mL Total Protein 7.3 (6.3-8.2) g/dL Albumin 4.1 (3.5-5.0) g/dL Globulin 3.2 (1.7-4.1) g/dL Albumin/Globulin Ratio 1.3 (1.0-2.8) Lipase (23-300) U/L Procalcitonin (<0.5) ng/mL TSH (0.47-4.68) uIU/mL Ethyl Alcohol ( - 10) mg/dL COVID-19 PCR (Negative) 06/20/20 06/20/20 06/20/20 Range/Units 21:55 21:55 21:55 WBC (4.5-11.0) X10^3/uL RBC (4.0-5.2) X10^6/uL Hgb (12.0-16.0) g/dL Hct (36-46) % MCV (80-100) fL MCH (26-34) PG MCHC (30-36) % RDW (11.6-14.8) % Plt Count (150-400) X10^3/uL Neut % (Auto) (50-75) % Lymph % (Auto) (25-40) % [place] % (Auto) (3-14) % Eos % (Auto) (2-4) % Baso % (Auto) (0-2) % Neut # (Auto) (0378-7282) /uL Lymph # (Auto) (6866-0988) /uL [place] # (Auto) (0-900) /uL Eos # (Auto) (0-450) /uL Baso # (Auto) (0-100) /uL PT (10.1-12.7) SECONDS INR (0.9-1.3) APTT (26.4-36.2) SECONDS Sodium (137-145) mmol/L Potassium (3.4-5.1) mmol/L Chloride (98-107) mmol/L Carbon Dioxide (22-32) mmol/L BUN (7-17) mg/dL Creatinine (0.52-1.04) mg/dL Estimated GFR (>60) mL/min BUN/Creatinine Ratio (6-22) Glucose (80-110) mg/dL Lactate 1.0 (0.7-2.1) mmol/L Calcium (8.4-10.2) mg/dL Total Bilirubin (0.2-1.3) mg/dL AST (14-36) IU/L ALT (<35) IU/L Alkaline Phosphatase (38-126) U/L Ammonia (9-30) umol/L Total Creatine Kinase 149 H (30-135) U/L CK-MB (CK-2) 0.37 (<2.37) ng/mL CK-MB (CK-2) Rel Index 0.2 L (1.5-5.0) % Troponin I 0.024 (0.01-0.034) ng/mL Total Protein (6.3-8.2) g/dL Albumin (3.5-5.0) g/dL Globulin (1.7-4.1) g/dL Albumin/Globulin Ratio (1.0-2.8) Lipase 76 (23-300) U/L Procalcitonin 0.24 (<0.5) ng/mL TSH (0.47-4.68) uIU/mL Ethyl Alcohol < 10 ( - 10) mg/dL COVID-19 PCR (Negative) 06/20/20 06/20/20 06/20/20 Range/Units 21:55 22:00 22:30 WBC (4.5-11.0) X10^3/uL RBC (4.0-5.2) X10^6/uL Hgb (12.0-16.0) g/dL Hct (36-46) % MCV (80-100) fL MCH (26-34) PG MCHC (30-36) % RDW (11.6-14.8) % Plt Count (150-400) X10^3/uL Neut % (Auto) (50-75) % Lymph % (Auto) (25-40) % [place] % (Auto) (3-14) % Eos % (Auto) (2-4) % Baso % (Auto) (0-2) % Neut # (Auto) (9051-4926) /uL Lymph # (Auto) (6813-8752) /uL [place] # (Auto) (0-900) /uL Eos # (Auto) (0-450) /uL Baso # (Auto) (0-100) /uL PT (10.1-12.7) SECONDS INR (0.9-1.3) APTT (26.4-36.2) SECONDS Sodium (137-145) mmol/L Potassium (3.4-5.1) mmol/L Chloride (98-107) mmol/L Carbon Dioxide (22-32) mmol/L BUN (7-17) mg/dL Creatinine (0.52-1.04) mg/dL Estimated GFR (>60) mL/min BUN/Creatinine Ratio (6-22) Glucose (80-110) mg/dL Lactate (0.7-2.1) mmol/L Calcium (8.4-10.2) mg/dL Total Bilirubin (0.2-1.3) mg/dL AST (14-36) IU/L ALT (<35) IU/L Alkaline Phosphatase (38-126) U/L Ammonia < 9 L (9-30) umol/L Total Creatine Kinase (30-135) U/L CK-MB (CK-2) (<2.37) ng/mL CK-MB (CK-2) Rel Index (1.5-5.0) % Troponin I (0.01-0.034) ng/mL Total Protein (6.3-8.2) g/dL Albumin (3.5-5.0) g/dL Globulin (1.7-4.1) g/dL Albumin/Globulin Ratio (1.0-2.8) Lipase (23-300) U/L Procalcitonin (<0.5) ng/mL TSH 3.38 (0.47-4.68) uIU/mL Ethyl Alcohol ( - 10) mg/dL COVID-19 PCR Negative (Negative) Imaging Data Chest x-ray: Attestation: I personally reviewed and interpreted this imaging study as follows: My Impression: Consolidation for right lower lobe concerning for pneumonia ECG Data Attestation: I personally reviewed and interpreted this ECG as follows: Prior ECG tracings: not available for review Interpretation: Sinus rhythm Ventricular rate of 69 Occasional ventricular paced beats MDM Narrative Medical decision making narrative: Patient arrived febrile. She denies headache or neck pain or chest pain or shortness of breath or nausea or vomiting. No skin rashes. No abdominal pain she has not been on any antibiotics recently. No recent travel. Her has no symptoms. Her chest x-ray does have what appears to be a consolidation in her right lower lung. This could explain her pneumonia. There is no other explanation found on her workup here in the emergency department although admittedly she was unable to provide a urine sample for us. She is not describing any urinary symptoms. Her COVID-19 test was negative. Patient states that while she was lying here in the emergency department she did feel much better than what she did earlier today although still admits that she feels very weak. She was able to stand and ambulate to the bathroom but did require quite a bit help by nursing staff and upon returning to bed when she was placed back on the monitors her oxygen saturations were in the mid to upper 80s. After several deep breaths they did improve to the high 80s and after she was placed on oxygen return to the low 90s. Given her desaturations in the finding on the chest x-ray patient was given antibiotics. She is on anticoagulation. I feel that pulmonary embolism is u nlikely. She denies any chest pain. She does have demand pacemaker in place. I did discuss the case with Dr. Dennis who is on-call for the patient's primary provider who will admit for further evaluation treatment. I did discuss this with the patient. She expressed understanding agreement. Her was at bedside for this discussions Discharge Plan Departure Patient Disposition: Admitted As Inpatient Clinical Impression: Hypoxia Pneumonia Qualifiers: Pneumonia type: due to unspecified organism Laterality: right Lung location: lower lobe of lung Qualified Code(s): J18.9 - Pneumonia, unspecified organism Discharge Date/Time: 06/21/20 01:23 Admit Date/Time: 06/21/20 00:29 Admit Provider: Jyoti Mcrae
[2020-06-20 23:09] VITALS: BP 92/54; PULSE 72; RESP 18; O2SAT 91
[2020-06-20 23:19] LABS: Thyroid Stimulating Hormone 3.38 uIU/mL (0.47-4.68)
[2020-06-20 23:28] LABS: COVID19 -Nasal RAPID Negative (Negative)
[2020-06-20 23:30] VITALS: BP 93/53; PULSE 67; RESP 18; O2SAT 92
[2020-06-20] MEDS: levoFLOXacin 750 MG/150 ML PIGGYBACK 100 MG IV (23:56)
--- NOTE | 2020-06-20 23:57 | PC.NURSE ---
Pt up to bathroom to try and give urine sample. Unable to urinate at this time. Unsteady on feet. When back to room. Pt's o2 sat was at 88% on ra. Took a few deep breathes and spo2 increased to 92% but then dropped again to 88%. Place pt on 2L of o2 via Nasal cannula
[2020-06-21] VITALS (15 sets, daily range): BP systolic 82–106; BP diastolic 40–61; PULSE 60–84; RESP 14–20; TEMP 36.2–37.9; O2SAT 92–98; BMI 23.1
[2020-06-21 01:37] LABS: Bacteria Urine None Seen
[2020-06-21 01:39] LABS: Appearance Urine UA CLEAR; Bilirubin Urine UA NEGATIVE (NEGATIVE); Color Urine UA YELLOW; Glucose Urine UA NEGATIVE (Negative); Ketones Urine UA NEGATIVE (NEGATIVE); Leukocyte Esterase Urine UA NEGATIVE (NEGATIVE); Nitrite Urine UA NEGATIVE (Negative); Occult Blood Urine UA 1+ (Negative); Protein Urine UA 2+ (Negative); Urobilinogen Urine UA 0.2 E.U./dL (0.2)
[2020-06-21 01:50] LABS: Culture Indicated Urine Cult Not Indicated; RBC Urine 0-1/HPF (0-5/HPF); WBC Urine 0-1/HPF (0-5/HPF)
[2020-06-21] MEDS: SODIUM CHLORIDE 0.9% 1,000 ML 150 ML IV (08:44)
[2020-06-21] MEDS: ACETAMINOPHEN 325 MG TABLET 650 MG PO ×2 (08:46→16:00)
--- NOTE | 2020-06-21 11:02 | P.HP_ITS ---
History of Present Illness History of Present Illness Date Patient Seen: 06/21/20 Time Patient Seen: 11:03 Date of Onset of Symptoms: 06/21/20 Chief complaint: unsteady on legs, weakness Narrative: Patient is seen in cross cover for Dr. Mcrae. She is an 85-year-old female who presents with acute onset of weakness. Patient apparently was in her usual state of health which she feels has been of somewhat progressive decline over the last 6 to 8 months. She states that she has had progressive pain in her legs and buttock which has been pretty extensive for some time. Has been slowly getting worse. She has had multiple workups for this. She describes the pain is primarily buttock and burning and pain going down her legs. Sometimes it wakes her up sometimes it does not. Apparently she has had injections which have not improved. This is not really changed. She also has had progressive shortness of breath. Primarily to this is with exertion. She has had no orthopnea or PND. She states that she really is just felt weak and some of that has to do with her pain and some of it has to do with her mild shortness of breath. That does not seem to be getting any worse. She noted that over the last week she may have been kicked increasingly weak and slowly progressing with that. She really had a slight dry cough but no other changes. Yesterday she was sitting on a bench which she suddenly just rolled off in the afternoon and at that point was unable to get up. She was unable to be helped up by her . She did not feel as if she was febrile but she has not checked her temperature. She otherwise just had an all over feeling of I can not really move period was unable to use her arms with any strength or legs. She had no one-sided abnormality. No other changes. Due the fact that she was unable to get up off the floor in [place] was called and she was taken to the emergency room. At that time she was noted to have a temperature of a 102? F. she otherwise had no focal findings period and was evaluated. On getting ready for discharge she was noted to have a pulse ox in the 86 range which did respond to deep breathing and O2. She otherwise has had no specific change or complaints. Patient has not had any urinary changes. No bowel changes although maybe she is a little constipated. She has had no nausea or vomiting. She has denies any chest pain. She has had no issues with her atrial fibrillation that she knows about. She has not changed any medication recently. She has not had any swelling in her legs over her usual. No calf pain or other new complaints. Nothing that is been outside of her chronic issues. She has had no headaches. No visual symptoms. And feels as if other than the extreme weakness from yesterday she has not had any focal motor changes. Today she is feeling slightly better although still feels very weak. Very tired. Has a usual pain. Breathing comfortably today. No chest pain. No new or changing symptoms. Patient History Medical History Acquired hypothyroidism (Chronic 02/01/13) Arthralgia (Chronic) Cardiac arrhythmia (Chronic) Chronic anticoagulation (Chronic) Chronic atrial fibrillation (Chronic) Colorectal cancer, stage I (Chronic ~2007) Cutaneous lupus erythematosus (Chronic ~2002) Cyst of thyroid (Chronic) Disrupted sleep-wake cycle (Chronic) 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/14) DJD (degenerative joint disease) (Chronic) Essential hypertension (Chronic) Facet arthropathy, lumbosacral (Chronic) GERD (gastroesophageal reflux disease) (Acute) Idiopathic peripheral autonomic neuropathy, unspecified (Chronic) Infarction of spleen (Resolved 03/15/14) Low back pain (Chronic) Lumbosacral spondylosis with radiculopathy (Acute) Malignant neoplasm of colon, unspecified (Resolved ~2007) Myelofibrosis (Chronic 05/15/14) Myelofibrosis (Chronic) Oral lichen planus (Chronic ~2009) Peripheral neuropathy (Chronic ~2012) Polycythemia vera (Chronic) Polycythemia vera (Chronic ~2006) Postherpetic neuralgia (Acute ~2012) Sciatica (Chronic) Spondylosis without myelopathy or radiculopathy, lumbosacral region (Acute) Stage 3 chronic kidney disease (Chronic 12/04/14) Surgical History History of bone marrow biopsy (Resolved ~2013) History of local excision of skin lesion (Resolved) History of thyroid surgery (Resolved) Presence of cardiac pacemaker (~2005) S/P medial meniscectomy of right knee (Resolved ~1999) Status post colectomy (~2007) Status post hysterectomy (~1974) Family & Social History Social History: household members spouse Prior Living Arrangements House Safety & Behavioral: Feels Safe in Current Yes Environment Been Physically Hurt or No Threatened By a Person Suicidal Ideation Description None Tobacco & Substance use: Smoking Status Never smoker alcohol intake current alcohol intake frequency 0-2 drinks per day Substance Use Type does not use Meds Home Medications and Allergies Home Medications Medication Instructions Recorded Confirmed Type multivitamin 1 tab PO DAILY #0 07/17/12 06/21/20 History flaxseed oil 1,000 mg PO DAILY #0 01/05/18 06/21/20 History magnesium oxide 500 mg PO DAILY #0 01/05/18 06/21/20 History cholecalciferol (vitamin D3) 25 2,000 unit PO QDAY #0 tab 06/19/18 06/21/20 History mcg (1,000 unit) tablet Jakafi 10 mg PO BID #60 tab 12/07/18 06/21/20 Rx diltiazem HCl 120 mg 120 mg PO QDAY #90 tab 01/16/19 06/21/20 Rx capsule,extended release 24 hr dabigatran etexilate 150 mg capsule 150 mg PO BID #180 cap 03/14/19 06/21/20 Rx furosemide 40 mg tablet 20 mg PO QDAY tab 11/21/19 06/21/20 History potassium chloride 10 mEq 10 meq PO DAILY 11/21/19 06/21/20 History capsule,extended release omeprazole 20 mg capsule,delayed 20 mg PO DAILY #90 cap 12/05/19 06/21/20 Rx release levothyroxine 25 mcg tablet 25 mcg PO DAILY #90 tab 04/09/20 06/21/20 Rx gabapentin 600 mg tablet 600 mg PO BID #90 tab 06/10/20 06/21/20 Rx alpha lipoic acid 600 mg PO BID 06/21/20 06/21/20 History biotin 10,000 mcg PO DAILY 06/21/20 06/21/20 History escitalopram oxalate 5 mg PO DAILY 06/21/20 06/21/20 History melatonin 5 mg PO BEDTIME 06/21/20 06/21/20 History metronidazole 1 applic TOPICAL DAILY 06/21/20 06/21/20 History Allergies Allergy/AdvReac Type Severity Reaction Status Date / Time adhesive [ADHESIVE] Allergy Mild SENSITIVE Verified 06/20/20 22:02 hydroxyurea [HYDROXYUREA] Allergy Mild ITCHY Verified 06/20/20 22:02 hydroxyzine [HYDROXYZINE] Allergy Mild ITCHY Verified 06/20/20 22:02 codeine [CODEINE] Allergy Unknown dizzyness/f Verified 06/20/20 22:02 ainting Review of Systems Review of Systems ROS: Yes All systems reviewed with the patient and are negative except as otherwise documented Exam Vital Signs (past 8 hours): - 06/21/20 08:00 06/21/20 09:44 06/21/20 09:45 Temperature 99.9 F H Pulse Rate 69 Respiratory Rate 18 Blood Pressure 95/61 Pulse Oximetry 93 97 92 Oxygen Delivery Method Room Air Oxygen Flow Rate 2 Narrative Exam Narrative: Alert elderly female fatigued in appearance lying in bed in no acute distress respiratory Eyes are unremarkable. Mucous membranes moist. Neck supple without adenopathy JVD or bruits. Lungs with some decreased breath sounds right base with some crackles although she has a little better crackles on the left side. Heart irregular but controlled rate. Abdomen is soft positive bowel sounds nontender. Extremities without cyanosis clubbing edema. Good capillary refill. Neurologic exam shows she is maybe slightly weak but motor is 5/5 reflexes 2+ and symmetric. Alert and oriented x3. Psychologically interactive but quiet. Objective Labs Result Diagrams: 06/20/20 21:55 06/20/20 21:55 Labs: Laboratory Results - last 24 hr 06/20/20 06/20/20 06/20/20 21:55 21:55 21:55 WBC 9.4 RBC 2.84 L Hgb 9.6 L Hct 28.1 L MCV 99.3 MCH 33.9 MCHC 34.2 RDW 13.3 Plt Count 246 Neut % (Auto) 85.5 H Lymph % (Auto) 5.3 L [place] % (Auto) 8.9 Eos % (Auto) 0.0 L Baso % (Auto) 0.3 Neut # (Auto) 8000 H Lymph # (Auto) 500 L [place] # (Auto) 800 Eos # (Auto) 0 Baso # (Auto) 0 PT 15.4 H INR 1.3 APTT 53 H Sodium 130 L Potassium 3.3 L Chloride 95 L Carbon Dioxide 26 BUN 26 H Creatinine 1.54 H Estimated GFR 32.2 L BUN/Creatinine Ratio 16.9 Glucose 119 H Lactate Calcium 8.7 Total Bilirubin 0.8 AST 108 H ALT 55 H Alkaline Phosphatase 83 Ammonia Total Creatine Kinase CK-MB (CK-2) CK-MB (CK-2) Rel Index Troponin I Total Protein 7.3 Albumin 4.1 Globulin 3.2 Albumin/Globulin Ratio 1.3 Lipase Procalcitonin TSH Urine Color Urine Appearance Urine pH Ur Specific [place] Urine Protein Urine Glucose (UA) Urine Ketones Urine Occult Blood Urine Nitrate Urine Bilirubin Urine Urobilinogen Ur Leukocyte Esterase Urine RBC Urine WBC Urine Bacteria Ur Culture Indicated? Ethyl Alcohol COVID-19 [facility] 06/20/20 06/20/20 06/20/20 21:55 21:55 21:55 WBC RBC Hgb Hct MCV MCH MCHC RDW Plt Count Neut % (Auto) Lymph % (Auto) [place] % (Auto) Eos % (Auto) Baso % (Auto) Neut # (Auto) Lymph # (Auto) [place] # (Auto) Eos # (Auto) Baso # (Auto) PT INR APTT Sodium Potassium Chloride Carbon Dioxide BUN Creatinine Estimated GFR BUN/Creatinine Ratio Glucose Lactate 1.0 Calcium Total Bilirubin AST ALT Alkaline Phosphatase Ammonia Total Creatine Kinase 149 H CK-MB (CK-2) 0.37 CK-MB (CK-2) Rel Index 0.2 L Troponin I 0.024 Total Protein Albumin Globulin Albumin/Globulin Ratio Lipase 76 Procalcitonin 0.24 TSH Urine Color Urine Appearance Urine pH Ur Specific [place] Urine Protein Urine Glucose (UA) Urine Ketones Urine Occult Blood Urine Nitrate Urine Bilirubin Urine Urobilinogen Ur Leukocyte Esterase Urine RBC Urine WBC Urine Bacteria Ur Culture Indicated? Ethyl Alcohol < 10 COVID-19 [facility] 06/20/20 06/20/20 06/20/20 21:55 22:00 22:30 WBC RBC Hgb Hct MCV MCH MCHC RDW Plt Count Neut % (Auto) Lymph % (Auto) [place] % (Auto) Eos % (Auto) Baso % (Auto) Neut # (Auto) Lymph # (Auto) [place] # (Auto) Eos # (Auto) Baso # (Auto) PT INR APTT Sodium Potassium Chloride Carbon Dioxide BUN Creatinine Estimated GFR BUN/Creatinine Ratio Glucose Lactate Calcium Total Bilirubin AST ALT Alkaline Phosphatase Ammonia < 9 L Total Creatine Kinase CK-MB (CK-2) CK-MB (CK-2) Rel Index Troponin I Total Protein Albumin Globulin Albumin/Globulin Ratio Lipase Procalcitonin TSH 3.38 Urine Color Urine Appearance Urine pH Ur Specific [place] Urine Protein Urine Glucose (UA) Urine Ketones Urine Occult Blood Urine Nitrate Urine Bilirubin Urine Urobilinogen Ur Leukocyte Esterase Urine RBC Urine WBC Urine Bacteria Ur Culture Indicated? Ethyl Alcohol COVID-19 PCR Negative 06/21/20 01:36 WBC RBC Hgb Hct MCV MCH MCHC RDW Plt Count Neut % (Auto) Lymph % (Auto) [place] % (Auto) Eos % (Auto) Baso % (Auto) Neut # (Auto) Lymph # (Auto) [place] # (Auto) Eos # (Auto) Baso # (Auto) PT INR APTT Sodium Potassium Chloride Carbon Dioxide BUN Creatinine Estimated GFR BUN/Creatinine Ratio Glucose Lactate Calcium Total Bilirubin AST ALT Alkaline Phosphatase Ammonia Total Creatine Kinase CK-MB (CK-2) CK-MB (CK-2) Rel Index Troponin I Total Protein Albumin Globulin Albumin/Globulin Ratio Lipase Procalcitonin TSH Urine Color Yellow Urine Appearance Clear Urine pH 6.0 Ur Specific [place] 1.010 Urine Protein 2+ H Urine Glucose (UA) Negative Urine Ketones Negative Urine Occult Blood 1+ H Urine Nitrate Negative Urine Bilirubin Negative Urine Urobilinogen 0.2 Ur Leukocyte Esterase Negative Urine RBC 0-1/hpf Urine WBC 0-1/hpf Urine Bacteria None seen Ur Culture Indicated? Cult not indicated Ethyl Alcohol COVID-19 PCR Assessment & Plan Assessment & Plan narrative: Pneumonia with hypoxia. Seems to be improved today. Mid 80s in the emergency room yesterday. Currently doing well but not mobilizing at this time. Will see how she does. She is on antibiotics. Cultures have been obtained. White count seems to be normal and will continue to follow. Dehydration. Mild at this time. Will decrease to 75 cc an hour and recheck in 24 hours to see how she is doing. Does have a history congestive heart failure and have to watch closely. Hypokalemia. Patient with history of low-dose replacement. At this point will replace with p.o. and re-evaluate in a.m.. Hyponatremia. Mild. Probably related to fluid dehydration. Will see how she response to hydration re-evaluate in a.m.. Acute on chronic renal failure. I suspect this is prerenal will see what happens as we addressed her fluid level. Re-evaluate in a.m.. Weakness. I suspect that secondary to her infection. Does not appear to be focal. Very low likelihood of stroke issue. Will follow. Anemia interesting patient is on treatment for polycythemia vera she certainly far from that. Will check guaiac. Re-evaluate. Probably will be somewhat decreased with fluid hydration. Will follow-up with her territory manager general sales as outpatient depending on how things go. Chronic back pain buttock pain leg pain. At this point she has been in the process of workup for long periods of time. Will follow but no need to change any treatment course at this time. Atrial fibrillation. Rate is controlled. Will continue usual medicine period and follow. History of dysphagia. Apparently she has EGD scheduled. Does not appear to be active problem will follow and adjust medications if needed. Code status. Full. DVT prophylaxis on anticoagulation GI prophylaxis on PPI Disposition. Will rest today. Give fluids physical therapy tomorrow. Will see how she responds. Hopefully discharge on Tuesday depending on how things go. Quality VTE Deep Vein Thrombosis/Pulmonary Embolism Present on Admission: No
[2020-06-21] MEDS: CHOLECALCIFEROL (VITAMIN D3) 1,000 UNIT TABLET 2000 UNIT PO (11:52)
--- NOTE | 2020-06-21 12:04 | PC.NURSE ---
Addendum entered by Oscar Liao R.N. 06/21/20 12:55: Dr. Dennis was notified of low BP, order to hold todays dose of cardizem received along with order for Normal saline 250cc bolus received and administered. Patient tolerated well. BP recheck 95/49 without new symptoms, and now afebrile at 98.8. Patient sitting up at bedside with her , with call light within reach. Original Note: blood pressure and heart rate re evaluated prior to giving cardizem po (as newly ordered/patient's home medication). Patient states she is still fatigued and weak, but denies pain, shortness of breath, lightheadedness or dizziness at this time. BP Right arm 82/44 HR 73, BP Left arm 85/[address] Dennis paged. Patient resting in bed, supine, with call light within reach. Bed alarm active for safety. Continue to follow.
--- NOTE | 2020-06-21 12:24 | CM.DANOTE ---
DCP: Case received, EMR reviewed and met with patient. , Bebeto, was also at bedside. Introduced self and role. Was able to obtain some information regarding patient's baseline activity status prior to hospitalization. DCP assessment completed with information currently available. Patient is an 85 year old female who admitted early this morning to the care of the hospitalist team. PCP: Dr. Mcrae. Payer: confirmed: [facility] [place]. Patient came to the hospital via private vehicle secondary to increased weakness. She had been fatigued to the point that she slid off of a bench, and initially could not get up. She was eventually able to get up, but continued to be weak. Patient brought here with . She holds diagnosis of pneumonia/hypoxia, and dehydration. Met with patient in her room. She was sitting up in bed. Her , Bebeto, was at bedside. Patient confirmed that she still drives. She indicated, this weakness has been going on for a while. She resides in [place] with her , Bebeto. Dr. Dennis indicated that patient may be getting P.T. tomorrow, as long as she is stable. P: DCP to continue to follow. Will see how she does with P.T. tomorrow, for any recommendations. Divya Sanabria RN/Transition Social Worker
[2020-06-21] MEDS: SODIUM CHLORIDE 0.9% 250 ML 1000 ML IV (12:33)
[2020-06-21] MEDS: POTASSIUM CHLORIDE 20 MEQ TAB PO (16:00)
[2020-06-21] MEDS: ONDANSETRON 4 MG/2 ML INJ IV ×2 (16:00→23:54)
[2020-06-21] MEDS: LIDOCAINE PATCH 1 EACH ADH..PATCH TOP (17:26)
[2020-06-21] MEDS: HYDROCODONE/ACET 5/325 TABLET 1 TAB PO (17:26)
[2020-06-21] MEDS: GABAPENTIN 600 MG TABLET PO (20:22)
[2020-06-21] MEDS: MELATONIN 3 MG TABLET 6 MG PO (20:22)
[2020-06-21] MEDS: DABIGATRAN 75 MG CAPSULE 150 MG PO (20:22)
[2020-06-21] MEDS: SODIUM CHLORIDE 0.9% 1,000 ML 75 ML IV (20:29)
[2020-06-22] VITALS (12 sets, daily range): BP systolic 96–125; BP diastolic 52–65; PULSE 64–89; RESP 16–18; TEMP 35.8–37.7; O2SAT 87–97
[2020-06-22 04:55] LABS: Add Manual Diff / Slide Review NO; Basophils Absolute Auto 0 /uL (0-100); Basophils Percent Auto 0.1 % (0-2); Eosinophils Absolute Auto 0 /uL (0-450); Hematocrit 24.7 % (36-46); Hemoglobin 8.3 g/dL (12.0-16.0); Lymphocytes Absolute Auto 200 /uL (1100-4500); Mean Corpuscular HGB Conc 33.8 % (30-36); Mean Corpuscular Hemoglobin 33.3 PG (26-34); Mean Corpuscular Volume 98.5 fL (80-100); Monocytes Absolute Auto 600 /uL (0-900); Neutrophils Absolute Auto 6600 /uL (1500-7000); Neutrophils Percent Auto 88.9 % (50-75); Platelet Count 196 X10^3/uL (150-400); Red Blood Cell Count 2.51 X10^6/uL (4.0-5.2); Red Cell Distribution Width 13.4 % (11.6-14.8); White Blood Cell Count 7.4 X10^3/uL (4.5-11.0)
[2020-06-22 05:03] LABS: BUN Creatinine Ratio 13.5 (6-22); Blood Urea Nitrogen 17 mg/dL (7-17); Calcium 8.3 mg/dL (8.4-10.2); Carbon Dioxide 24 mmol/L (22-32); Chloride 106 mmol/L (98-107); Estimated Glomerular Filt Rate 40.6 mL/min (>60); Glucose 112 mg/dL (80-110); HEMOLYSIS < 15 (0-50); Potassium 3.6 mmol/L (3.4-5.1); Sodium 133 mmol/L (137-145)
[2020-06-22] MEDS: LEVOTHYROXINE 25 MCG TABLET PO (06:30)
[2020-06-22] MEDS: POTASSIUM CHLORIDE 20 MEQ TAB PO (07:56)
[2020-06-22] MEDS: MAGNESIUM OXIDE 400 MG TABLET PO (07:57)
[2020-06-22] MEDS: MULTIVITAMIN 1 TABLET 1 TAB PO (07:57)
[2020-06-22] MEDS: CHOLECALCIFEROL (VITAMIN D3) 1,000 UNIT TABLET 2000 UNIT PO (07:57)
[2020-06-22] MEDS: GABAPENTIN 600 MG TABLET PO ×2 (07:57→20:36)
[2020-06-22] MEDS: ACETAMINOPHEN 325 MG TABLET 650 MG PO (07:57)
[2020-06-22] MEDS: PANTOPRAZOLE 20 MG TABLET PO (07:57)
[2020-06-22] MEDS: DABIGATRAN 75 MG CAPSULE 150 MG PO ×2 (07:57→20:36)
[2020-06-22] MEDS: ESCITALOPRAM 10 MG TABLET 5 MG PO (07:58)
[2020-06-22] MEDS: SODIUM CHLORIDE 0.9% 1,000 ML 75 ML IV (10:04)
--- NOTE | 2020-06-22 11:56 | P.PN_ITS ---
Subjective Subjective Date Patient Seen: 06/22/20 Time Patient Seen: 11:57 Interval history: Patient actually feeling better today. No dizziness. No lightheadedness. Back pain is improved with treatment of lidocaine patch. Otherwise no significant change or complaint. Has not had any significant weakness but has not been up mobilizing or moving around. Exam Vital Signs (past 8 hours): - 06/22/20 04:00 06/22/20 08:00 06/22/20 09:14 Temperature 97.2 F L 99.9 F H 98.4 F Pulse Rate 89 85 Respiratory Rate 16 16 Blood Pressure 113/62 107/65 Pulse Oximetry 92 94 87 L 06/22/20 09:15 06/22/20 10:16 Temperature Pulse Rate 71 Respiratory Rate 16 Blood Pressure Pulse Oximetry 93 93 Oxygen Delivery Method Nasal Cannula Oxygen Flow Rate 2 Narrative Exam Narrative: Alert female much less fatigued in appearance in no acute distress. Mucous membranes moist. Neck supple without adenopathy. No JVD no bruits. Lungs are clear. Heart regular rate and rhythm. Abdomen is soft positive bowel sounds nontender. Extremities without cyanosis clubbing edema. Neurologic exam is nonfocal. Psychologically much more alert interactive smiling Objective Labs Result Diagrams: 06/22/20 04:35 06/22/20 04:35 Labs: Laboratory Results - last 24 hr 06/22/20 06/22/20 04:35 04:35 WBC 7.4 RBC 2.51 L Hgb 8.3 L Hct 24.7 L MCV 98.5 MCH 33.3 MCHC 33.8 RDW 13.4 Plt Count 196 Neut % (Auto) 88.9 H Lymph % (Auto) 3.0 L [place] % (Auto) 8.0 Eos % (Auto) 0.0 L Baso % (Auto) 0.1 Neut # (Auto) 6600 Lymph # (Auto) 200 L [place] # (Auto) 600 Eos # (Auto) 0 Baso # (Auto) 0 Sodium 133 L Potassium 3.6 Chloride 106 Carbon Dioxide 24 BUN 17 Creatinine 1.26 H Estimated GFR 40.6 L BUN/Creatinine Ratio 13.5 Glucose 112 H Calcium 8.3 L Assessment & Plan Assessment & Plan narrative: Pneumonia with hypoxia. Appears to be doing better. Hypoxia is resolving. Off O2. Clinically feeling better. Did not have any definitive respiratory symptoms on presentation. At this point seem to be making clinical progress. Will continue to treat with Levaquin and follow from there. Hypotension. Patient with episode of low blood pressure yesterday question whether this is related to sepsis syndrome or not. Patient is stabilized now. Got better with fluid bolus and continued IV hydration. At this point will follow but I think were doing much better and will see how things go. Dehydration. I think at this point essentially resolved period of like to see how she does with her oral intake and being off of her fluids in preparation for her hopefully going home tomorrow. Hyponatremia improved. Continue to follow. Hypokalemia. Resolving. Will decrease dose to 1 potassium a day. Recheck in a.m.. Weakness. Patient looks much better today. With not mobilizer but will get PT to evaluate. Hopefully strength will continue to improved she will be able to be discharged tomorrow. Anemia. Etiology is unclear. Goal has not had bowel movement. But no evidence of bleeding. Patient is being treated by polycythemia vera but makes a little unclear since her crit is down as low as it is today. I think at this point will discontinue her therapy and will allow technical operations vice president on her usual primary care doctor to assess this. Probably will need follow-up as outpatient. Will see what her guaiac shows. Chronic back pain buttock pain leg pain. Much improved today. Continue lidocaine and pain pill. Atrial fibrillation rates well controlled no issue at this time. History of dysphagia. No episodes of issue and has scheduled evaluation. Does not need to be acutely change. Code status full. DVT prophylaxis on anticoagulation. GI prophylaxis on PPI. Disposition. Certainly improved today. I think she will be ready for discharge in less something and told happens today. We discussed this with patient. Questions were answered agrees with plan. Quality VTE Deep Vein Thrombosis/Pulmonary Embolism Present on Admission: No
--- NOTE | 2020-06-22 15:17 | PT.IIE ---
Surgical History (Last Reviewed 06/21/20 @ 11:13 by Bebeto Dennis MD) History of bone marrow biopsy (Resolved ~2013) History of local excision of skin lesion (Resolved) History of thyroid surgery (Resolved) Presence of cardiac pacemaker (~2005) S/P medial meniscectomy of right knee (Resolved ~1999) Status post colectomy (~2007) Status post hysterectomy (~1974) Medical History (Last Reviewed 06/21/20 @ 11:12 by Bebeto Dennis MD) Acquired hypothyroidism (Chronic 02/01/13) Arthralgia (Chronic) Cardiac arrhythmia (Chronic) Chronic anticoagulation (Chronic) Chronic atrial fibrillation (Chronic) Colorectal cancer, stage I (Chronic ~2007) Cutaneous lupus erythematosus (Chronic ~2002) Cyst of thyroid (Chronic) Disrupted sleep-wake cycle (Chronic) 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/14) DJD (degenerative joint disease) (Chronic) Essential hypertension (Chronic) Facet arthropathy, lumbosacral (Chronic) GERD (gastroesophageal reflux disease) (Acute) Idiopathic peripheral autonomic neuropathy, unspecified (Chronic) Infarction of spleen (Resolved 03/15/14) Low back pain (Chronic) Lumbosacral spondylosis with radiculopathy (Acute) Malignant neoplasm of colon, unspecified (Resolved ~2007) Myelofibrosis (Chronic 05/15/14) Myelofibrosis (Chronic) Oral lichen planus (Chronic ~2009) Peripheral neuropathy (Chronic ~2012) Polycythemia vera (Chronic) Polycythemia vera (Chronic ~2006) Postherpetic neuralgia (Acute ~2012) Sciatica (Chronic) Spondylosis without myelopathy or radiculopathy, lumbosacral region (Acute) Stage 3 chronic kidney disease (Chronic 12/04/14) Physical Therapy Inpatient Evaluation/Re-Eval M1 PT/OT-IP Prior Functional Status Start: 06/22/20 12:59 Freq: NEEDED Status: Active Protocol: Document 06/22/20 14:44 AW (Rec: 06/22/20 15:17 AW [id number]) Medical Review Prior Functional Status Medical History Reviewed Yes Communication No known deficits Mobility and Gait Pt is an independent community ambulator. She does long hours of gardening for enjoyment and to keep up her strength. She notes increasing weakness over the last several months with a sharp decline over the past few days but denies falls other than the one that precipitated this admissionb. Activities of Daily Living and IADL's Independent Prior Functional Level (Other details) Pt reports her spouse, Bebeto, has declined physically and that she provides caregiver support as needed. Social History Household Members spouse Living Arrangements House Number of Floors (Floors) Two Floors Number of Stairs To Enter/Railing? 2 MANAN without railing at front entrance. 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 There are a total of 17 stairs with a landing in the middle. First 9 steps have left railing; second 8 steps hace right rail ascending Home Environment Standard Height Toilet,Walk in Shower Home Equipment Straight Cane Employment Status Retired Additional Social History Comment Pt and her spouse live alone in [place]. They have a daughter in [place] who is arriving Tuesday to stay with them when the pt discharges. M2 PT-IP Current Condition Start: 06/22/20 12:59 Freq: NEEDED Status: Active Protocol: Document 06/22/20 14:44 AW (Rec: 06/22/20 15:17 AW [id number]) Physical Therapy Current Condition Current Condition Evaluation Date 06/22/20 Treatment Diagnosis pneumonia, hypoxia, difficulty in walking Onset Date 06/20/20 M3 PT-IP Subjective Start: 06/22/20 12:59 Freq: NEEDED Status: Active Protocol: Document 06/22/20 14:44 AW (Rec: 06/22/20 15:17 AW [id number]) Subjective Physical Therapy Visit Type Type Initial Evaluation Visit Start Time 13:31 Visit Stop Time 14:01 Total Visit Minutes 30 Physical Therapy Visit Comments Patient Comments Pt would like to try going for a walk. Patient Goals To feel better and go home, back to her garden. Therapy Pain Assessment Pain When Pain Assessed During Mobility Pain Present Pain Present Pain Reported Location back Intensity 2 Scale Used Numeric (0 - 10) Pain Management Techniques Distraction,Re-positioning M4 PT-IP Mobility and Gait Start: 06/22/20 12:59 Freq: NEEDED Status: Active Protocol: Document 06/22/20 14:44 AW (Rec: 06/22/20 15:17 AW [id number]) PT-Bed Mobility Assessment Sit to Supine Sit to Supine Standby Assistance Scooting Scooting to Edge of Bed Standby Assistance PT-Transfer Assessment Sit to and From Stand Sit to and from Stand Standby Assistance,Use of Upper Extremities Equipment Transfer Assistive Device Gait Belt,Straight Cane Transfers Transfer Destination Bed,Chair Transfer Technique pt ambulated with SPC Transfer Ability Level of Assist Standby Assistance,Use of Upper Extremities Comments Mobility Comments Pt was sitting on the edge of the bed as PT arrived. BP was 102/57 HR 67 SpO2 95% on room air. She stood using SPC SBA and transferred to the chair SBA. She stood again and ambulated in the halls 220 feet with SPC SBA. She had one lateral LOB but was able to recover without PT assist. After climbing the stairs and then walking back to the room 220 feet with SPC SBA, BP was 125/45 HR 67 SO2 86% on room air with signs of mildly labored breathing. Pt transferred back to the bed SBA where she was positioned for rest with call light and all needs in reach. Gait Assessment Gait Gait Assistance Required: Standby Assistance Distance (Feet) 220 Assistive Devices Assistive Device Gait Belt,Straight Cane Gait Deviations General Gait Pattern Decreased Stride Length, Decreased Feet Clearance, Flexed Trunk Factors Limiting Gait Function Factors Limiting Gait Function Decreased Activity Tolerance, Decreased Strength,Pain,Poor Balance Comments Gait Comments Pt was able to coordinate 3- point gait with SPC safely. She tends to drift to her right during ambulation but is aware and able to compensate. One lateral LOB to the right was witnessed; pt was able to recover without assist. Stair Climbing Assessment Evaluation Level of Assist On Stairs Standby Assistance Devices Stair Climbing Assistive Devices Left Railing,Right Railing Technique/Endurance Stair Climbing Direction Ascend and Descend Stair Climbing Technique Step Over Step Number of Steps Climbed 3 Query Text: Stair Climbing Set # Repetitions (reps) 2 Comments Stair Climbing Comments Stairs were completed today in order to assess response to activity. SpO2 dropped from 95 % at rest to 86% after stairs on room air. PT-Balance Assessment Sitting Balance and Reactions Static Sitting Balance Ability Normal Dynamic Sitting Balance Ability Normal Standing Balance and Reactions Static Standing Balance Ability Good Dynamic Standing Balance Ability Good Device Used SPC M5 PT-IP Objective Assessments Start: 06/22/20 12:59 Freq: NEEDED Status: Active Protocol: Document 06/22/20 14:44 AW (Rec: 06/22/20 15:17 AW [id number]) Orientation Orientation/Cognition Level of Alertness Alert Orientation Name,Day of Week,Place, Situation Language Function Ability No Deficits Noted Memory Description No Deficits Noted Gross Range of Motion Upper Extremity ROM Assessment Within Functional Limits Lower Extremity ROM Assessment Within Functional Limits Strength Upper Extremity Strength Assessment Within Functional Limits Lower Extremity Strength Assessment Within Functional Limits Comments Strength Comments BLE grossly 4+/5 Coordination Assessment Gross Coordination Gross Coordination WNL Sensation Assessment Sensation Gross Sensation WNL Muscle Tone Muscle Tone WNL Yes M6 PT-IP Treatment Start: 06/22/20 12:59 Freq: NEEDED Status: Active Protocol: Document 06/22/20 14:44 AW (Rec: 06/22/20 15:17 AW [id number]) Physical Therapy Treatment Education Education Provided Safety Other Treatments Other Treatment Performed Provided education on role of PT, plan of care, importance of continued mobility, and safe use of SPC. M7 PT-IP Assessment and Plan Start: 06/22/20 12:59 Freq: NEEDED Status: Active Protocol: Document 06/22/20 14:44 AW (Rec: 06/22/20 15:17 AW [id number]) PT Summary Assessment and Plan Potential Rehabilitation Potential Excellent Status of Condition at Evaluation Evolving Summary Impairments Pain,Strength,Balance,Bed Mobility,Transfers,Gait, Activity Tolerance Assessment Summary Isela is an active 85 yo woman seen for PT evaluation in the acute care setting with diagnosis of pneumonia and hypoxia. She is independent in all regards at baseline and provides some degree of caregiver support for her . She required SBA for all mobility on evaluation with drop in SpO2 from 95 to 86% during activity. She will benefit from at least one more acute PT session to further assess response to activity with increased demand in stair training. PT anticipates this pt will be safe to discharge home with assist once medically stable. Goals Bed Mobility Goal Independent Transfer Goal Independent Gait Goal Independent,Cane Gait Distance 300 Other Goals - up/down 17 steps with unilateral railing SBA Days to Meet Goals 3 Frequency of Treatment Frequency Of Treatment Once a Day Treatment Plan Physical Therapy Treatment Plan Bed Mobility Training,Transfer Training,Gait Training, Therapeutic Exercise,Balance Retraining,Post Op Education, Discharge Planning,Hot or Cold Pack Other Recommendations and Next Treatment progress gait with or without Focus SPC; stairs with continual assessment of SpO2 Recommendations To Nursing Amount of Assist Needed Standby Assistance Discharge Recommendations PT Discharge Recommendations Home with Assistance Transportation Needs at Discharge Private Vehicle
[2020-06-22] MEDS: SODIUM CHLORIDE 0.9% FLUSH 10 ML IV (20:24)
[2020-06-22] MEDS: MELATONIN 3 MG TABLET 6 MG PO (20:36)
[2020-06-22] MEDS: levoFLOXacin 750 MG/150 ML PIGGYBACK 100 MG IV (20:36)
[2020-06-22] MEDS: HYDROCODONE/ACET 5/325 TABLET 1 TAB PO (22:57)
[2020-06-23] VITALS (11 sets, daily range): BP systolic 85–124; BP diastolic 43–73; PULSE 62–86; RESP 16–20; TEMP 36.4–37.1; O2SAT 93–97
--- NOTE | 2020-06-23 02:04 | PC.NURSE ---
Pt resting comfortably w/no c/o of pain. O2 sats dropping as low as 88% on 2L O2 via NC. O2 sats do not increase until HOB is raised and oxygen is increased to 4L. Pt has no c/o of SOB and is not sleeping open mouthed. Will continue to monitor.
[2020-06-23 05:05] LABS: Add Manual Diff / Slide Review NO; Basophils Absolute Auto 0 /uL (0-100); Basophils Percent Auto 0.2 % (0-2); Eosinophils Absolute Auto 0 /uL (0-450); Eosinophils Percent Auto 0.1 % (2-4); Hematocrit 25.8 % (36-46); Hemoglobin 8.6 g/dL (12.0-16.0); Lymphocytes Absolute Auto 300 /uL (1100-4500); Lymphocytes Percent Auto 4.1 % (25-40); Mean Corpuscular HGB Conc 33.5 % (30-36); Mean Corpuscular Hemoglobin 33.5 PG (26-34); Mean Corpuscular Volume 99.8 fL (80-100); Monocytes Absolute Auto 500 /uL (0-900); Neutrophils Absolute Auto 5900 /uL (1500-7000); Neutrophils Percent Auto 87.6 % (50-75); Platelet Count 214 X10^3/uL (150-400); Red Blood Cell Count 2.58 X10^6/uL (4.0-5.2); Red Cell Distribution Width 13.3 % (11.6-14.8); White Blood Cell Count 6.8 X10^3/uL (4.5-11.0)
[2020-06-23 05:08] LABS: BUN Creatinine Ratio 10.4 (6-22); Blood Urea Nitrogen 13 mg/dL (7-17); Calcium 8.4 mg/dL (8.4-10.2); Carbon Dioxide 25 mmol/L (22-32); Chloride 105 mmol/L (98-107); Estimated Glomerular Filt Rate 40.9 mL/min (>60); Glucose 95 mg/dL (80-110); HEMOLYSIS < 15 (0-50); Sodium 134 mmol/L (137-145)
[2020-06-23] MEDS: LEVOTHYROXINE 25 MCG TABLET PO (05:08)
--- NOTE | 2020-06-23 06:37 | PM.PN.1 ---
Subjective Subjective Date Patient Seen: 06/23/20 Time Patient Seen: 07:20 Interval history: The pt reports feeling very tired this morning, she has not been sleeping well. She denies additional concerns. She states that her breathing feels okay. She denies any SOB. She denies any recent chest pain. She in anxious to return home. Exam Vital Signs (past 8 hours): - 06/22/20 23:35 06/23/20 03:17 Temperature 98.9 F 97.6 F Pulse Rate 78 71 Respiratory Rate 18 18 Blood Pressure 101/55 L 106/54 L Pulse Oximetry 94 94 Oxygen Delivery Method Nasal Cannula Oxygen Flow Rate 4 Narrative Exam Narrative: Gen: NAD, sitting comfortably in bed, appears fatigued Neck: no LAD, no JVD CV: RRR, grade 2/6 systolic murmur Resp: mild crackles bilateral bases, no wheezing, good air movement throughout Abd: soft, mildly distended, normoactive bowel sounds, nontender to palpation Ext: no edema Objective Labs Result Diagrams: 06/23/20 04:50 06/23/20 04:50 Labs: Laboratory Results - last 24 hr 06/23/20 06/23/20 04:50 04:50 WBC 6.8 RBC 2.58 L Hgb 8.6 L Hct 25.8 L MCV 99.8 MCH 33.5 MCHC 33.5 RDW 13.3 Plt Count 214 Neut % (Auto) 87.6 H Lymph % (Auto) 4.1 L Hudson % (Auto) 8.0 Eos % (Auto) 0.1 L Baso % (Auto) 0.2 Neut # (Auto) 5900 Lymph # (Auto) 300 L Hudson # (Auto) 500 Eos # (Auto) 0 Baso # (Auto) 0 Sodium 134 L Potassium 4.0 Chloride 105 Carbon Dioxide 25 BUN 13 Creatinine 1.25 H Estimated GFR 40.9 L BUN/Creatinine Ratio 10.4 Glucose 95 Calcium 8.4 Assessment & Plan Assessment & Plan narrative: 85yo woman with atrial fibrillation on chronic anticoagulation, hypothyroidism, HTN, CKD stage 3, chronic back pain, polycythemia vera, myelofibrosis, and CHF who presented with weakness. Found to have pneumonia on CXR. 1) Pneumonia: Hypoxia had improved, now worsened overnight again. Requiring 2-4L of O2. CXR this AM showing worsening infiltrate. - Chest CT to be completed today - Continue Levofloxacin for now - Continue oxygen, titrate as needed 2) CHF: Question if influencing hypoxia. Does appear to have mild pulmonary edema on my read of CXR today. Has fluid resuscitation earlier in hospitalization. - 20mg IV lasix now - Monitor for diuresis with I/Os 3) Hypotension: BP stabilized. - Continue to monitor 4) Dehydration: Creatinine normalized. Resolved. 5) Hyponatremia: Continues to gradually improved. - Daily BMP 6) Hypokalemia: Resolved. - Continue oral supplementation 7) Weakness: Pt feels is more related to fatigue than anything else this morning. - PT cleared for home with assistance yesterday 8) Constipation: - Start Docusate BID scheduled 9) Anemia: Stable. No evidence active bleeding. Hx of polycythemia. - Guaiac once has BM - F/U with Hematology 10) Atrial fibrillation: Rate controlled. - Continue Pradaxa, Diltiazem 11) Chronic back pain: Stable - Continue lidocaine patch, Gabapentin 12) Hypothyroidism: - Continue Levothyroxine Code: Full DVT prophylaxis: on Pradaxa FEN: general diet Dispo: Unfortunately worsening condition overnight with increased oxygen requirement. Pending improvement in status, off oxygen. Should be stable to d/c home at discharge. Quality VTE Deep Vein Thrombosis/Pulmonary Embolism Present on Admission: No
[2020-06-23] MEDS: MULTIVITAMIN 1 TABLET 1 TAB PO (09:06)
[2020-06-23] MEDS: dilTIAZem CD 120 MG CAP PO (09:06)
[2020-06-23] MEDS: POTASSIUM CHLORIDE 20 MEQ TAB PO (09:07)
[2020-06-23] MEDS: GABAPENTIN 600 MG TABLET PO ×2 (09:07→20:48)
[2020-06-23] MEDS: MAGNESIUM OXIDE 400 MG TABLET PO (09:07)
[2020-06-23] MEDS: ESCITALOPRAM 10 MG TABLET 5 MG PO (09:07)
[2020-06-23] MEDS: PANTOPRAZOLE 20 MG TABLET PO (09:07)
[2020-06-23] MEDS: CHOLECALCIFEROL (VITAMIN D3) 1,000 UNIT TABLET 2000 UNIT PO (09:07)
[2020-06-23] MEDS: SODIUM CHLORIDE 0.9% FLUSH 10 ML IV ×3 (09:08→22:18)
[2020-06-23] MEDS: DABIGATRAN 75 MG CAPSULE 150 MG PO ×2 (09:08→20:47)
--- NOTE | 2020-06-23 10:18 | DI.RAD.S_ITS ---
PROCEDURE: XR CHEST 1V INDICATIONS: hypoxia, cough TECHNIQUE: One view of the chest was acquired. COMPARISON: [facility], CR, XR CHEST 1V, 06/20/2020, 22:22. FINDINGS: Surgical changes and devices: Left chest wall pacemaker leads are seen in the region of right atrium and right ventricle. Lungs and pleura: Moderate size airspace opacity in right lower lung field is again seen, more prominent in size compared to previous study concerning for developing right lower lobe infiltrate. Left lung is clear. No pleural effusions or pneumothorax. Mediastinum: Mediastinal contours appear normal. Heart size is enlarged. Bones and chest wall: No suspicious bony lesions. Overlying soft tissues appear unremarkable. IMPRESSION: Worsening right lower lobe infiltrate. No pneumothorax. Dictated by: Og Cody M.D. on 06/23/2020 at 11:19 Approved by: Og Cody M.D. on 06/23/2020 at 11:25
[2020-06-23] MEDS: DOCUSATE 100 MG CAPSULE PO ×2 (11:40→20:48)
[2020-06-23] MEDS: FUROSEMIDE 20 MG/2 ML VIAL IV (11:40)
--- NOTE | 2020-06-23 12:38 | PC.NURSE ---
Low blood pressure reported by CORPORATE COMMUNICATIONS SPECIALIST to this RN, patient was laying in bed on left side at the time, sleeping but asymptomatic. Re assessed BP while patient supine at 90/54, with HR 80. Patient denies pain, lightheadedness or other complaint, reports Im just working on breathing deeply. Updated Dr. Mcrae over the phone with BP results and continued need to titrate 02 to maintain 02 saturations greater than 90%. Currently on 4L NC at 91%. Dr. Mcrae plans to order Chest CT. Will continue to monitor.
--- NOTE | 2020-06-23 12:39 | DI.CT.S_ITS ---
PROCEDURE: CT CHEST W CON INDICATIONS: hypoxia, worsening infiltrate CXR on appropriate abx TECHNIQUE: After the administration of intravenous contrast, 5 mm thick sections acquired from the pulmonary apices to the posterior costophrenic angles. 1 mm axial lung, 5 mm thick coronal and sagittal reformats and 7 mm axial MIP were acquired. For radiation dose reduction, the following was used: automated exposure control, adjustment of mA and/or kV according to patient size. COMPARISON: [facility], CR, XR CHEST 1V, 06/23/2020, 10:48. FINDINGS: Image quality: Excellent. Lungs and pleura: Dense pneumonia right lower lobe, small associated right pleural effusion best seen at the subpulmonic position posteriorly. Small left pleural effusion is present posteriorly without adjacent definite pneumonia but there is mild atelectasis.. No pleural effusions or pneumothorax. Central and peripheral airways are patent and normal in caliber. Mediastinum: Heart size is normal. No pericardial effusion. No mediastinal or hilar adenopathy by size criteria. Thoracic aorta and central pulmonary arteries are normal in size. Esophagus is normal in caliber. No hiatal hernia. Bones and chest wall: No suspicious bony lesions. No vertebral body compression fractures. No axillary or supraclavicular adenopathy by size criteria. Thyroid gland is not well seen . Abdomen: Visualized upper abdominal solid organs appear normal except for splenic punctate calcified granulomas. Upper abdominal bowel loops are normal in caliber. IMPRESSION: Right lower lobe dense posterior pneumonia with small subpulmonic pleural effusion. Left lower lung mild atelectasis adjacent to a small left pleural effusion. 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 Cardiac pacemaking device noted with dual chamber leads in expected position. Dictated by: Freddy Carrasco M.D. on 06/23/2020 at 13:55 Approved by: Freddy Carrasco M.D. on 06/23/2020 at 13:59
--- NOTE | 2020-06-23 13:44 | CM.DPC ---
DCP Cont: Per MD, pt likely not stable for d/c yet today but maybe tomorrow if remains stable overnight and oxygen able to be weaned as pt not on home oxygen at baseline. Per RT, pt oxygen needs increased to 4L today. Per RN, pt seems more drowsy and now has new wet but nonproductive cough. Per PT, pt's Dtr to arrive from [place] today and she will stay with pt and spouse (who pt is primary CG for spouse) to help for as long as needed and recommending safe d/c home with Dtr assist when stable for discharge. Plan: SW to follow tomorrow to determine if pt's oxygen needs can be reduced and if she is medically stable to d/c home with Dtr to stay and assist. Sarahi Tee MSW
--- NOTE | 2020-06-23 14:05 | PT.IPTN ---
Physical Therapy Treatment Note M2 PT-IP Current Condition Start: 06/22/20 12:59 Freq: NEEDED Status: Active Protocol: Document 06/22/20 14:44 AW (Rec: 06/22/20 15:17 AW [id number]) Physical Therapy Current Condition Current Condition Evaluation Date 06/22/20 Treatment Diagnosis pneumonia, hypoxia, difficulty in walking Onset Date 06/20/20 M3 PT-IP Subjective Start: 06/22/20 12:59 Freq: NEEDED Status: Active Protocol: Document 06/23/20 13:37 CLB (Rec: 06/23/20 14:31 CLB [id number]) Subjective Physical Therapy Visit Type Type Treatment Note Visit Start Time 13:37 Visit Stop Time 14:05 Total Visit Minutes 28 Number of MINERAL SURVEYING TECHNICIAN Visits 1 Physical Therapy Visit Comments Patient Comments Pt wanting to walk in hallway. Pt states she is feeling worse today. Therapy Pain Assessment Pain When Pain Assessed During Mobility Pain Present Pain Present Pain Reported Location back Scale Used pt did not state M4 PT-IP Mobility and Gait Start: 06/22/20 12:59 Freq: NEEDED Status: Active Protocol: Document 06/23/20 13:37 CLB (Rec: 06/23/20 14:31 CLB [id number]) PT-Bed Mobility Assessment Supine to Sit Supine to Sit Standby Assistance Sit to Supine Sit to Supine Standby Assistance Scooting Scooting to Edge of Bed Standby Assistance PT-Transfer Assessment Sit to and From Stand Sit to and from Stand Standby Assistance,Use of Upper Extremities Equipment Transfer Assistive Device Gait Belt,Straight Cane Transfers Transfer Destination Bed,Toilet Transfer Technique pt ambulated with SPC Transfer Ability Level of Assist Standby Assistance,Use of Upper Extremities Comments Mobility Comments Pt in bed upon arrival. Pt got out of bed SBA and was able to doff socks and put on shoes SBA. Pt stood SBA and required CGA once ambulating due to unsteady gait. Pt was able to betito/doff brief and sit on toilet with use of wall rail SBA. Pt BP in sitting after using toilet 96/59, HR 77, MAP 71, SpO2 on 4L 96%. Pt ambulated in bell ~70ft taking a standing rest break with self initiation of PLB. Pt SpO2 during rest break with PLB, 96% on 4L. Pt ambulated another 130ft requiring CGA as pt had unsteady gait with lateral swaying. Pt returned to room sitting on EOB, BP 104 /54, HR 84, MAP 72 and SpO2 on 4L 81% increasing to 96% within 30 seconds of PLB. Pt returned to supine SBA. Pt left in bed with HOB elevated, bed alarm on and all needs within reach. Gait Assessment Gait Gait Assistance Required: Contact Guard Assist Distance (Feet) 200 Assistive Devices Assistive Device Gait Belt,Straight Cane Gait Deviations General Gait Pattern Decreased Stride Length, Decreased Feet Clearance, Flexed Trunk Factors Limiting Gait Function Factors Limiting Gait Function Decreased Activity Tolerance, Decreased Strength,Pain,Poor Balance Comments Gait Comments see mobility comments M5 PT-IP Objective Assessments Start: 06/22/20 12:59 Freq: NEEDED Status: Active Protocol: Document 06/22/20 14:44 AW (Rec: 06/22/20 15:17 AW [id number]) Orientation Orientation/Cognition Level of Alertness Alert Orientation Name,Day of Week,Place, Situation Language Function Ability No Deficits Noted Memory Description No Deficits Noted Gross Range of Motion Upper Extremity ROM Assessment Within Functional Limits Lower Extremity ROM Assessment Within Functional Limits Strength Upper Extremity Strength Assessment Within Functional Limits Lower Extremity Strength Assessment Within Functional Limits Comments Strength Comments BLE grossly 4+/5 Coordination Assessment Gross Coordination Gross Coordination WNL Sensation Assessment Sensation Gross Sensation WNL Muscle Tone Muscle Tone WNL Yes M6 PT-IP Treatment Start: 06/22/20 12:59 Freq: NEEDED Status: Active Protocol: Document 06/22/20 14:44 AW (Rec: 06/22/20 15:17 AW [id number]) Physical Therapy Treatment Education Education Provided Safety Other Treatments Other Treatment Performed Provided education on role of PT, plan of care, importance of continued mobility, and safe use of SPC. M7 PT-IP Assessment and Plan Start: 06/22/20 12:59 Freq: NEEDED Status: Active Protocol: Document 06/23/20 13:37 CLB (Rec: 06/23/20 14:31 CLB [id number]) PT Summary Assessment and Plan Potential Rehabilitation Potential Excellent Status of Condition at Evaluation Evolving Summary Impairments Pain,Strength,Balance,Bed Mobility,Transfers,Gait, Activity Tolerance Assessment Summary Pt with decreased activity tolerance requiring standing rest breaks for PLB and CGA for gait due to lateral swaying and increased fatigue during gait. Pt may require use of FWW for energy conservation and improved stability. Will assess next tx . Goals Bed Mobility Goal Independent Transfer Goal Independent Gait Goal Independent,Cane Gait Distance 300 Other Goals - up/down 17 steps with unilateral railing SBA Days to Meet Goals 3 Frequency of Treatment Frequency Of Treatment Once a Day Treatment Plan Physical Therapy Treatment Plan Bed Mobility Training,Transfer Training,Gait Training, Therapeutic Exercise,Balance Retraining,Post Op Education, Discharge Planning,Hot or Cold Pack Other Recommendations and Next Treatment trial FWW if needed for energy Focus conservation, stairs, monitor SpO2 and BP. Recommendations To Nursing Amount of Assist Needed Standby Assistance Discharge Recommendations PT Discharge Recommendations Home with Assistance Transportation Needs at Discharge Private Vehicle
[2020-06-23] MEDS: PIPERACILLIN-TAZO 3.375 GM/50 ML FROZ.PIGGY IV ×2 (15:50→20:00)
--- NOTE | 2020-06-23 19:45 | RT ---
PEP THERAPY DONE WITH THE PT / PT DOES WELL WITH THE THERAPY
[2020-06-23] MEDS: MELATONIN 3 MG TABLET 6 MG PO (20:48)
[2020-06-24] VITALS (8 sets, daily range): BP systolic 108–138; BP diastolic 63–72; PULSE 67–75; RESP 16–20; TEMP 36.6–37.2; O2SAT 92–99
[2020-06-24] MEDS: PIPERACILLIN-TAZO 3.375 GM/50 ML FROZ.PIGGY IV ×4 (02:19→20:05)
[2020-06-24] MEDS: SODIUM CHLORIDE 0.9% FLUSH 10 ML IV ×3 (02:20→20:51)
[2020-06-24 05:39] LABS: Add Manual Diff / Slide Review NO; Basophils Absolute Auto 0 /uL (0-100); Basophils Percent Auto 0.3 % (0-2); Eosinophils Absolute Auto 0 /uL (0-450); Eosinophils Percent Auto 0.7 % (2-4); Hematocrit 23.4 % (36-46); Lymphocytes Absolute Auto 300 /uL (1100-4500); Lymphocytes Percent Auto 5.4 % (25-40); Mean Corpuscular Hemoglobin 33.3 PG (26-34); Monocytes Absolute Auto 700 /uL (0-900); Monocytes Percent Auto 11.2 % (3-14); Neutrophils Absolute Auto 5200 /uL (1500-7000); Neutrophils Percent Auto 82.4 % (50-75); Platelet Count 214 X10^3/uL (150-400); Red Blood Cell Count 2.39 X10^6/uL (4.0-5.2); Red Cell Distribution Width 13.2 % (11.6-14.8); White Blood Cell Count 6.3 X10^3/uL (4.5-11.0)
[2020-06-24] MEDS: LEVOTHYROXINE 25 MCG TABLET PO (05:47)
[2020-06-24 05:48] LABS: BUN Creatinine Ratio 10.2 (6-22); Blood Urea Nitrogen 13 mg/dL (7-17); Calcium 8.2 mg/dL (8.4-10.2); Carbon Dioxide 28 mmol/L (22-32); Chloride 102 mmol/L (98-107); Estimated Glomerular Filt Rate 39.8 mL/min (>60); Glucose 93 mg/dL (80-110); HEMOLYSIS < 15 (0-50); Potassium 3.5 mmol/L (3.4-5.1); Sodium 134 mmol/L (137-145)
--- NOTE | 2020-06-24 08:28 | PC.NURSE ---
Addendum entered by Elizabeth Eric R.N. 06/24/20 13:07: Patient placed back on 4l as her sats have dropped to the low 80s. Sputum culture not obtained yet, she has only been able to spit up saliva. She is visiting with her daughter now and did eat some of her salad at lunch. Addendum entered by Elizabeth Eric R.N. 06/24/20 10:50: does not want patient to have her Jakafi at this time because her blood count is low. Given back to her daughter who will take this medicine home. Addendum entered by Elizabeth Eric R.N. 06/24/20 10:39: Patients jakafi brought in by daughter, to call back with orders. She takes this medication twice a day for her colon ca. Original Note: Patient noncomplaint this morning and took her oxygen off, and got up without help to wash her face, even though she is mostly steady and uses cane, encouraged patient to use callbell. She stated that she didnt care and needed to try and get up herself. Patient's Bilateral lung sounds with fine crackles throughout, patient has a dry cough, sputum sample needed. Oxygen saturation 98% on 4l, she has been bumped down to 3l and will try and decrease oxygen in about and hour. Patient does go down to 88% on RA. She does understand that she is suppose to use the call tiwari.
[2020-06-24] MEDS: dilTIAZem CD 120 MG CAP PO (08:34)
--- NOTE | 2020-06-24 08:38 | P.PN_ITS ---
Subjective Subjective Date Patient Seen: 06/24/20 Time Patient Seen: 07:15 Interval history: The pt reports that she is feeling well this morning. She now has a frequent dry, hacking cough as per nursing. She denies any recent chest pain or SOB. She remains anxious to return home, and wants to be discharged today. Exam Vital Signs (past 8 hours): - 06/24/20 03:30 06/24/20 07:00 06/24/20 08:15 Temperature 98.2 F 97.8 F Pulse Rate 73 67 67 Respiratory Rate 18 16 18 Blood Pressure 121/72 108/70 Pulse Oximetry 94 99 95 Oxygen Delivery Method Nasal Cannula Oxygen Flow Rate 3 Narrative Exam Narrative: Gen: NAD, sitting comfortably at edge of bed Neck: no LAD, no JVD CV: RRR, grade 2/6 systolic murmur Resp: crackles bilateral bases, no wheezing, good air movement throughout Ext: no edema Objective Labs Result Diagrams: 06/24/20 04:55 06/24/20 04:55 Labs: Laboratory Results - last 24 hr 06/24/20 06/24/20 04:55 04:55 WBC 6.3 RBC 2.39 L Hgb 8.0 L Hct 23.4 L MCV 98.0 MCH 33.3 MCHC 34.0 RDW 13.2 Plt Count 214 Neut % (Auto) 82.4 H Lymph % (Auto) 5.4 L Spencer % (Auto) 11.2 Eos % (Auto) 0.7 L Baso % (Auto) 0.3 Neut # (Auto) 5200 Lymph # (Auto) 300 L Spencer # (Auto) 700 Eos # (Auto) 0 Baso # (Auto) 0 Sodium 134 L Potassium 3.5 Chloride 102 Carbon Dioxide 28 BUN 13 Creatinine 1.28 H Estimated GFR 39.8 L BUN/Creatinine Ratio 10.2 Glucose 93 Calcium 8.2 L Assessment & Plan Assessment & Plan narrative: 85yo woman with atrial fibrillation on chronic anticoagulation, hypothyroidism, HTN, CKD stage 3, chronic back pain, polycythemia vera, myelofibrosis, and CHF who presented with weakness. Found to have pneumonia on CXR. 1) Pneumonia: Hypoxia had improved, now worsened again. Requiring 2-4L of O2. CXR yesterday showing worsening infiltrate, CT showing mild pleural effusions and dense right infiltrate. - Continue Levofloxacin, Zosyn added yesterday - Continue oxygen, titrate as needed 2) CHF: Question if influencing hypoxia. Did appear to have mild pulmonary e acosta on my read of CXR yesterday. Had fluid resuscitation earlier in hospitalization. Good diuresis with IV Lasix yesterday. - Continue to monitor - No repeat of Lasix today 3) Hypotension: BP stabilized. - Continue to monitor 4) Dehydration: Creatinine normalized. Resolved. 5) Hyponatremia: Stable. - Daily BMP 6) Hypokalemia: Resolved. - Continue oral supplementation 7) Weakness: Pt feels is more related to fatigue - PT cleared for home with assistance 8) Constipation: - Docusate BID scheduled 9) Anemia: Stable. No evidence active bleeding. Hx of polycythemia. Guaiac negative. - F/U with Hematology as an outpatient 10) Atrial fibrillation: Rate controlled. - Continue Pradaxa, Diltiazem 11) Chronic back pain: Stable - Continue lidocaine patch, Gabapentin 12) Hypothyroidism: - Continue Levothyroxine Code: Full DVT prophylaxis: on Pradaxa FEN: general diet Dispo: Unfortunately with continued significant oxygen requirement. Pending improvement in status. Would like at least 48hrs of high potency antibiotic coverage, possible d/c tomorrow with oxygen if appropriate. Quality VTE Deep Vein Thrombosis/Pulmonary Embolism Present on Admission: No
[2020-06-24] MEDS: GABAPENTIN 600 MG TABLET PO ×2 (08:42→20:36)
[2020-06-24] MEDS: ESCITALOPRAM 10 MG TABLET 5 MG PO (08:42)
[2020-06-24] MEDS: CHOLECALCIFEROL (VITAMIN D3) 1,000 UNIT TABLET 2000 UNIT PO (08:44)
[2020-06-24] MEDS: PANTOPRAZOLE 20 MG TABLET PO (08:44)
[2020-06-24] MEDS: DABIGATRAN 75 MG CAPSULE 150 MG PO ×2 (08:44→20:35)
[2020-06-24] MEDS: MAGNESIUM OXIDE 400 MG TABLET PO (08:44)
[2020-06-24] MEDS: POTASSIUM CHLORIDE 20 MEQ TAB PO (08:44)
[2020-06-24] MEDS: DOCUSATE 100 MG CAPSULE PO ×2 (08:44→20:36)
[2020-06-24] MEDS: MULTIVITAMIN 1 TABLET 1 TAB PO (08:47)
--- NOTE | 2020-06-24 11:39 | PT.IPTN ---
Current Diagnoses Pneumonia, unspecified organism (06/21/20) Physical Therapy Treatment Note M2 PT-IP Current Condition Start: 06/22/20 12:59 Freq: NEEDED Status: Active Protocol: Document 06/22/20 14:44 AW (Rec: 06/22/20 15:17 AW [id number]) Physical Therapy Current Condition Current Condition Evaluation Date 06/22/20 Treatment Diagnosis pneumonia, hypoxia, difficulty in walking Onset Date 06/20/20 M3 PT-IP Subjective Start: 06/22/20 12:59 Freq: NEEDED Status: Active Protocol: Document 06/24/20 11:20 CLB (Rec: 06/24/20 12:45 CLB [id number]) Subjective Physical Therapy Visit Type Type Treatment Note Visit Start Time 11:20 Visit Stop Time 11:39 Total Visit Minutes 19 Number of RACE ENGINE BUILDER Visits 2 Physical Therapy Visit Comments Patient Comments Pt willing to participate with therapy. Therapy Pain Assessment Pain When Pain Assessed During Mobility Pain Present Pain Present Pain Reported Location back Scale Used pt did not state M4 PT-IP Mobility and Gait Start: 06/22/20 12:59 Freq: NEEDED Status: Active Protocol: Document 06/24/20 11:20 CLB (Rec: 06/24/20 12:45 CLB [id number]) PT-Transfer Assessment Sit to and From Stand Sit to and from Stand Standby Assistance,Use of Upper Extremities Equipment Transfer Assistive Device Gait Belt,Straight Cane Transfers Transfer Destination Bed,Chair Transfer Technique pt ambulated with SPC Transfer Ability Level of Assist Standby Assistance,Use of Upper Extremities Comments Mobility Comments Pt in bell with daughter sitting on chair in [facility] . Pt stood SBA and ambulated in bell ~600ft with SPC and improved balance. Pt returned to room wanting to sit on window bench. Pt SpO2 96% on 4L after activity, HR 82 bpm. Left pt in room with daughter. RN informed pt positioned on window bench and unable to reach call light. Gait Assessment Gait Gait Assistance Required: Standby Assistance Distance (Feet) 600 Assistive Devices Assistive Device Straight Cane Gait Deviations General Gait Pattern Decreased Stride Length, Decreased Feet Clearance, Flexed Trunk Factors Limiting Gait Function Factors Limiting Gait Function Decreased Activity Tolerance, Decreased Strength,Pain,Poor Balance Comments Gait Comments Pt able to ambulate SBA with SPC w/o the need for rest breaks this session. Pt with improved balance w/o lateral sway. Stair Climbing Assessment Evaluation Level of Assist On Stairs Standby Assistance Devices Stair Climbing Assistive Devices Left Railing,Right Railing Technique/Endurance Stair Climbing Direction Ascend and Descend Stair Climbing Technique Step Over Step Number of Steps Climbed 3 Stair Climbing Set # Repetitions (reps) 2 M5 PT-IP Objective Assessments Start: 06/22/20 12:59 Freq: NEEDED Status: Active Protocol: Document 06/22/20 14:44 AW (Rec: 06/22/20 15:17 AW [id number]) Orientation Orientation/Cognition Level of Alertness Alert Orientation Name,Day of Week,Place, Situation Language Function Ability No Deficits Noted Memory Description No Deficits Noted Gross Range of Motion Upper Extremity ROM Assessment Within Functional Limits Lower Extremity ROM Assessment Within Functional Limits Strength Upper Extremity Strength Assessment Within Functional Limits Lower Extremity Strength Assessment Within Functional Limits Comments Strength Comments BLE grossly 4+/5 Coordination Assessment Gross Coordination Gross Coordination WNL Sensation Assessment Sensation Gross Sensation WNL Muscle Tone Muscle Tone WNL Yes M6 PT-IP Treatment Start: 06/22/20 12:59 Freq: NEEDED Status: Active Protocol: Document 06/22/20 14:44 AW (Rec: 06/22/20 15:17 AW [id number]) Physical Therapy Treatment Education Education Provided Safety Other Treatments Other Treatment Performed Provided education on role of PT, plan of care, importance of continued mobility, and safe use of SPC. M7 PT-IP Assessment and Plan Start: 06/22/20 12:59 Freq: NEEDED Status: Active Protocol: Document 06/24/20 11:20 CLB (Rec: 06/24/20 12:45 CLB [id number]) PT Summary Assessment and Plan Potential Rehabilitation Potential Excellent Status of Condition at Evaluation Evolving Summary Impairments Pain,Strength,Balance,Bed Mobility,Transfers,Gait, Activity Tolerance Assessment Summary Pt able to increase gait distance w/o the need of rest breaks. Pt with improved steadiness with FWW able to ambulate SBA with SPC. Pt has been up ambulating in bell with her daughter. Goals Bed Mobility Goal Independent Transfer Goal Independent Gait Goal Independent,Cane Gait Distance 300 Other Goals - up/down 17 steps with unilateral railing SBA Days to Meet Goals 3 Frequency of Treatment Frequency Of Treatment Once a Day Treatment Plan Physical Therapy Treatment Plan Bed Mobility Training,Transfer Training,Gait Training, Therapeutic Exercise,Balance Retraining,Post Op Education, Discharge Planning,Hot or Cold Pack Other Recommendations and Next Treatment stair training 17 stairs with Focus unilateral rail. Gait while monitoring SpO2 Recommendations To Nursing Amount of Assist Needed Standby Assistance Discharge Recommendations PT Discharge Recommendations Home with Assistance Transportation Needs at Discharge Private Vehicle
--- NOTE | 2020-06-24 14:57 | CM.DPC ---
DCP: continued: case received and discussed in Team Rounds. RT is following pt and her supplemental oxygen needs have been fluctuating. This afternoon she is again back on [address] Mcrae was here today to see pt, noted pt's eagerness to return home. Says she will keep her longer for IV antibiotics and then consider home tomorrow with supplemental oxygen if need be. Pt's daughter is here and will be staying with her. Insurance update: do see that pt has Medicare A which is primary. She has a second insurance: [employer] [place] which apparently serves not as a supplement but more as a stand alone insurance. Admit Counselor Jenna clarifies that pt's [employer] plan still requires prior authorization..
[2020-06-24] MEDS: levoFLOXacin 750 MG/150 ML PIGGYBACK 100 MG IV (20:36)
[2020-06-24] MEDS: MELATONIN 3 MG TABLET 6 MG PO (20:36)
[2020-06-25] VITALS (10 sets, daily range): BP systolic 100–120; BP diastolic 48–74; PULSE 60–78; RESP 16–20; TEMP 36.3–36.9; O2SAT 92–97
[2020-06-25] MEDS: PIPERACILLIN-TAZO 3.375 GM/50 ML FROZ.PIGGY IV ×4 (03:34→21:02)
[2020-06-25] MEDS: LEVOTHYROXINE 25 MCG TABLET PO (06:31)
--- NOTE | 2020-06-25 07:00 | DI.RAD.S_ITS ---
PROCEDURE: XR CHEST 1V INDICATIONS: f/u pneumonia, cont hypoxia with oxygen needs TECHNIQUE: One view of the chest was acquired. COMPARISON: [facility], CR, XR CHEST 1V, 06/23/2020, 10:48. [facility], CR, XR CHEST 1V, 06/20/2020, 22:22. FINDINGS: Surgical changes and devices: Pacemaking device with dual chamber leads normal. Lungs and pleura: Lungs are abnormal with a patchy pneumonia pattern greater on the right than the left at the lower lungs. This has not worsened from 06/23/20.. No pleural effusions or pneumothorax. Mediastinum: Mediastinal contours appear normal. Heart size is normal. Bones and chest wall: No suspicious bony lesions. Overlying soft tissues appear unremarkable. IMPRESSION: Persistent bibasilar pneumonia, right greater than left, without worsening over the last several days. Dictated by: Freddy Carrasco M.D. on 06/25/2020 at 8:44 Approved by: Freddy Carrasco M.D. on 06/25/2020 at 8:45
[2020-06-25] MEDS: dilTIAZem CD 120 MG CAP PO (08:19)
[2020-06-25] MEDS: DABIGATRAN 75 MG CAPSULE 150 MG PO ×2 (08:20→21:03)
[2020-06-25] MEDS: GABAPENTIN 600 MG TABLET PO ×2 (08:21→21:03)
[2020-06-25] MEDS: PANTOPRAZOLE 20 MG TABLET PO (08:22)
[2020-06-25] MEDS: DOCUSATE 100 MG CAPSULE PO (08:22)
[2020-06-25] MEDS: POTASSIUM CHLORIDE 20 MEQ TAB PO (08:22)
[2020-06-25] MEDS: MULTIVITAMIN 1 TABLET 1 TAB PO (08:25)
[2020-06-25] MEDS: MAGNESIUM OXIDE 400 MG TABLET PO (08:27)
[2020-06-25] MEDS: CHOLECALCIFEROL (VITAMIN D3) 1,000 UNIT TABLET 2000 UNIT PO (08:28)
[2020-06-25] MEDS: ESCITALOPRAM 10 MG TABLET 5 MG PO (08:30)
--- NOTE | 2020-06-25 10:22 | PM.PN.1 ---
Subjective Subjective Date Patient Seen: 06/25/20 Time Patient Seen: 10:30 Interval history: The pt reports that she has been feeling well. She is walking laps around the hospital. She remains anxious to return home. Exam Vital Signs (past 8 hours): - 06/25/20 03:48 06/25/20 08:00 06/25/20 08:23 Temperature 97.9 F 97.3 F L Pulse Rate 74 66 78 Respiratory Rate 16 19 20 Blood Pressure 119/67 108/72 Pulse Oximetry 95 93 Oxygen Delivery Method Nasal Cannula Oxygen Flow Rate 3.5 Narrative Exam Narrative: Gen: NAD, sitting comfortably at edge of bed Neck: no LAD, no JVD CV: RRR, grade 2/6 systolic murmur Resp: crackles bilateral bases stable from yesterday, no wheezing, good air movement throughout Ext: no edema Objective Labs Result Diagrams: 06/24/20 04:55 06/24/20 04:55 Assessment & Plan Assessment & Plan narrative: 85yo woman with atrial fibrillation on chronic anticoagulation, hypothyroidism, HTN, CKD stage 3, chronic back pain, polycythemia vera, myelofibrosis, and CHF who presented with weakness. Found to have pneumonia on CXR. 1) Pneumonia: Acute respiratory failure with hypoxia at admission. Hypoxia stable, requiring 2-4L of O2, but unfortunately not significantly improved. CXR this morning shows stable pneumonia. Etiology unable to be determined as have not been able to collect sputum sample. - Continue Levofloxacin, Zosyn - Continue oxygen, titrate as needed - Pt will likely be stable for d/c tomorrow, hopefully with lower oxygen requirement. RT to assess for home oxygen today. 2) CHF: Question if influencing hypoxia. Did appear to have acute mild pulmonary edema on my read of CXR. Had fluid resuscitation earlier in hospitalization. Good diuresis with IV Lasix. Stable. - Continue to monitor - No repeat of Lasix today 3) Hypotension: BP stabilized. - Continue to monitor 4) Dehydration: Creatinine normalized. Resolved. 5) Hyponatremia: Stable. - Daily BMP 6) Hypokalemia: Resolved. - Continue oral supplementation 7) Weakness: Pt feels is more related to fatigue - PT cleared for home with assistance 8) Constipation: - Docusate BID scheduled 9) Anemia: Stable. No evidence active bleeding. Hx of polycythemia. Guaiac negative. - F/U with Hematology as an outpatient 10) Atrial fibrillation: Rate controlled. - Continue Pradaxa, Diltiazem 11) Chronic back pain: Stable - Continue lidocaine patch, Gabapentin 12) Hypothyroidism: - Continue Levothyroxine Code: Full DVT prophylaxis: on Pradaxa FEN: general diet Dispo: Unfortunately with continued significant oxygen requirement. Was hoping to see improvement in her oxygen requirement prior to d/c. CXR stable, but no significant improvement either. Will keep pt for additional 24hrs of antibiotic coverage. Plan to d/c tomorrow, unless worsening overnight, with home oxygen if needed. Quality VTE Deep Vein Thrombosis/Pulmonary Embolism Present on Admission: No
--- NOTE | 2020-06-25 11:35 | PT.IPTN ---
Current Diagnoses Pneumonia, unspecified organism (06/21/20) Physical Therapy Treatment Note M2 PT-IP Current Condition Start: 06/22/20 12:59 Freq: NEEDED Status: Active Protocol: Document 06/22/20 14:44 AW (Rec: 06/22/20 15:17 AW [id number]) Physical Therapy Current Condition Current Condition Evaluation Date 06/22/20 Treatment Diagnosis pneumonia, hypoxia, difficulty in walking Onset Date 06/20/20 M3 PT-IP Subjective Start: 06/22/20 12:59 Freq: NEEDED Status: Active Protocol: Document 06/25/20 11:02 SP (Rec: 06/25/20 12:43 SP [id number]) Subjective Physical Therapy Visit Type Type Treatment Note Visit Start Time 11:02 Visit Stop Time 11:35 Total Visit Minutes 33 Notes Daughter present, provided caregiver assist to patient throughout treatment. Number of FAMILY PRACTICE DOCTOR Visits 3 Physical Therapy Visit Comments Patient Comments Pt willing to participate with therapy. Therapy Pain Assessment Pain Present Pain Present Denied Pain M4 PT-IP Mobility and Gait Start: 06/22/20 12:59 Freq: NEEDED Status: Active Protocol: Document 06/25/20 11:02 SP (Rec: 06/25/20 12:43 SP [id number]) PT-Bed Mobility Assessment Supine to Sit Supine to Sit Independent Sit to Supine Sit to Supine Independent Scooting Scooting to Edge of Bed Independent PT-Transfer Assessment Sit to and From Stand Sit to and from Stand Standby Assistance,Use of Upper Extremities Equipment Transfer Assistive Device Gait Belt,Straight Cane Transfers Transfer Destination Bed Transfer Technique pt ambulated with SPC Transfer Ability Level of Assist Standby Assistance,Use of Upper Extremities Comments Mobility Comments Pt seated at EOB and daughter in room when arrived. Education provided in safety saturation normal readings, slow pacing and proper slow diaphramatic breathing techniques to allow for energy conservation and activity tolerance. Instructed daughter in caregiver traininng including safety donning gait belt for assist with mobility if needed. Sit to stand from EOB using proper hand placement, SPC SBA patient walked further into hallway approx 700 ft usign SPC, daughter managed O2 tank. Safety education required with daughter positioning closer and using LUE with tank trailing behind allowing RUE available for support if needed to patient with improved demonstration. FAMILY PRACTICE DOCTOR and daughter provided cuing to patient for slower pacing and diaphramatic breathing for safe saturation maintained Mid 90s (R 5th MTP) throughout gait with initial 4 L able to decrease to 2 L as distance progressed. Pt decreased to 88 -90% SaO2 on 2L during conversation but back to mid 90s with proper breathing technique. Pt ambulated from room to stairs, ascend/descend 6 stairs using BHR receiprocating gait and ascend /descend 1 platform step usign SPC ( to assimulate entering her home) CGA by daughter with cuing for sequencing for safety balance no LOB and back to her room and good descent to sit at EOB SBA, sitting> supine I. Pt was inclined in bed with call light and all needs in reach and daughter inroom before left. FAMILY PRACTICE DOCTOR discussed with anesthesiology physician assistant to notify nurse patient was on 2L when left room, maintaining 88 (during conversation)- Mid 90s SaO2. Will continue to assess SaO2 during activity and wean supplimental O2 with nursing feedback directioning safety. Recommending continue acute rehab for improving strength, proper breathing education. Gait Assessment Gait Gait Assistance Required: Standby Assistance Distance (Feet) 700 Assistive Devices Assistive Device Gait Belt,Straight Cane Orthotic/Prosthetic Devices or Brace: No Gait Deviations General Gait Pattern Decreased Stride Length, Decreased Feet Clearance, Flexed Trunk Factors Limiting Gait Function Factors Limiting Gait Function Decreased Activity Tolerance, Decreased Strength,Poor Balance,Respiratory Distress Comments Gait Comments See mobility comments for details. Stair Climbing Assessment Evaluation Level of Assist On Stairs Standby Assistance Devices Stair Climbing Assistive Devices Left Railing,Right Railing Technique/Endurance Stair Climbing Direction Ascend and Descend Stair Climbing Technique Step Over Step Number of Steps Climbed 3 Stair Climbing Set # Repetitions (reps) 2 Comments Stair Climbing Comments see mobility comments for details. Pt completed 6 stairs of 17 has at home indoors but stated doesn't need to use the stairs so didn't complete all 17 today. PT-Balance Assessment Sitting Balance and Reactions Static Sitting Balance Ability Normal Dynamic Sitting Balance Ability Normal Standing Balance and Reactions Static Standing Balance Ability Good Dynamic Standing Balance Ability Good Device Used SPC M5 PT-IP Objective Assessments Start: 06/22/20 12:59 Freq: NEEDED Status: Active Protocol: Document 06/22/20 14:44 AW (Rec: 06/22/20 15:17 AW [id number]) Orientation Orientation/Cognition Level of Alertness Alert Orientation Name,Day of Week,Place, Situation Language Function Ability No Deficits Noted Memory Description No Deficits Noted Gross Range of Motion Upper Extremity ROM Assessment Within Functional Limits Lower Extremity ROM Assessment Within Functional Limits Strength Upper Extremity Strength Assessment Within Functional Limits Lower Extremity Strength Assessment Within Functional Limits Comments Strength Comments BLE grossly 4+/5 Coordination Assessment Gross Coordination Gross Coordination WNL Sensation Assessment Sensation Gross Sensation WNL Muscle Tone Muscle Tone WNL Yes M6 PT-IP Treatment Start: 06/22/20 12:59 Freq: NEEDED Status: Active Protocol: Document 06/25/20 11:02 SP (Rec: 06/25/20 12:43 SP [id number]) Physical Therapy Treatment Other Treatments Other Treatment Performed Education on slow pacing and slow diaphramatic breathing during gait and at rest with slower conversation to allow for safe O2 saturation, able to decrease from 4L to 2 L while maintaining Mid 90s, notified nursing decreased to 2L in room. M7 PT-IP Assessment and Plan Start: 06/22/20 12:59 Freq: NEEDED Status: Active Protocol: Document 06/25/20 11:02 SP (Rec: 06/25/20 12:43 SP [id number]) PT Summary Assessment and Plan Potential Rehabilitation Potential Excellent Status of Condition at Evaluation Evolving Summary Impairments Pain,Strength,Balance,Bed Mobility,Transfers,Gait, Activity Tolerance Assessment Summary Pt able to increase gait distance using SPC and decreased supplimental O2 rom 4L to 2 L w/o the need of rest breaks. Provided education for proper breathing to maintain safe SaO2 with improvement as distance progressed. Pt has been up ambulating in bell with her daughter, provided safety education on importance of use of gait belt, her body and O2 tank positioning with improvement and good carryover . Pt would benefit from continued acute rehab and will update progress. Goals Bed Mobility Goal Independent Transfer Goal Independent Gait Goal Independent,Cane Gait Distance 300 Other Goals - up/down 17 steps with unilateral railing SBA Days to Meet Goals 3 Frequency of Treatment Frequency Of Treatment Once a Day Treatment Plan Physical Therapy Treatment Plan Bed Mobility Training,Transfer Training,Gait Training, Therapeutic Exercise,Balance Retraining,Post Op Education, Discharge Planning,Hot or Cold Pack Other Recommendations and Next Treatment stair training 17 stairs with Focus unilateral rail. Gait while monitoring SpO2 wean supplimental if able. Recommendations To Nursing Amount of Assist Needed Standby Assistance Discharge Recommendations PT Discharge Recommendations Home with Assistance Transportation Needs at Discharge Private Vehicle
--- NOTE | 2020-06-25 12:03 | PC.NURSE ---
Assess- Patient is A&Ox3, her lung sounds have improved this morning. She is down to 2l of 02 and sats are 96%. She has been up with her daughter ambulating in the halls. called and patient will be discharged to home tomorrow. Steady on her feet, with minimal weakness.
--- NOTE | 2020-06-25 12:29 | CM.DPC ---
DCP Cont: Checked in with patient. Daughter, Edyta, also in the room. Patient had been up ambulating earlier with respiratory therapy, Dr. Mcrae, was also present. Patient stated, her numbers were better, as far as her oxygen levels go. Confirmed that patient wants to go home, not to a skilled facility. She is hopeful that her numbers will improve to the point that she will not need oxygen. P: DCP will continue to check in for any needs. Home is the plan when she is medically stable. Divya Sanabria RN/[employer]
[2020-06-25 17:18] LABS: Add Manual Diff / Slide Review NO; Basophils Absolute Auto 0 /uL (0-100); Basophils Percent Auto 0.5 % (0-2); Eosinophils Absolute Auto 100 /uL (0-450); Eosinophils Percent Auto 0.7 % (2-4); Hematocrit 29.3 % (36-46); Hemoglobin 9.9 g/dL (12.0-16.0); Lymphocytes Absolute Auto 300 /uL (1100-4500); Lymphocytes Percent Auto 4.7 % (25-40); Mean Corpuscular HGB Conc 33.7 % (30-36); Mean Corpuscular Hemoglobin 33.3 PG (26-34); Mean Corpuscular Volume 98.8 fL (80-100); Monocytes Absolute Auto 1000 /uL (0-900); Neutrophils Absolute Auto 5500 /uL (1500-7000); Neutrophils Percent Auto 79.1 % (50-75); Platelet Count 324 X10^3/uL (150-400); Red Blood Cell Count 2.97 X10^6/uL (4.0-5.2); Red Cell Distribution Width 13.1 % (11.6-14.8); White Blood Cell Count 6.9 X10^3/uL (4.5-11.0)
[2020-06-25 17:30] LABS: BUN Creatinine Ratio 8.9 (6-22); Blood Urea Nitrogen 10 mg/dL (7-17); Calcium 9.1 mg/dL (8.4-10.2); Carbon Dioxide 29 mmol/L (22-32); Chloride 100 mmol/L (98-107); Estimated Glomerular Filt Rate 46.5 mL/min (>60); Glucose 97 mg/dL (80-110); HEMOLYSIS < 15 (0-50); Potassium 3.6 mmol/L (3.4-5.1); Sodium 136 mmol/L (137-145)
--- NOTE | 2020-06-25 18:26 | PC.NURSE ---
Addendum entered by Mattie Campbell R.N. 06/25/20 21:15: patient tearful and complaint of pain to stomach muscles. I asked if she wanted something for the pain and pt declined. pt was also found up in BR on her own. I educated pt on calling staff to ensure safety, patient agreed, bed alarmed activated. Original Note: KATHY shift. pt AO and receptive to care. Daughter in room for the first couple hours of the shift and has since left. pt titrated from 2L NC to 1L NC at 95-98% O2. Lungs clear with coarse sounds during coughs. Coughs are non-productive but has a specimen cup on table in case she is able to produce sputum. Denying pain and reporting general improvement in status. Reporting generalized weakness (but improved since admission). Right forearm PIV patent. Using acapella PRN and RT tracking with treatments.
[2020-06-25] MEDS: SODIUM CHLORIDE 0.9% FLUSH 10 ML IV (21:02)
[2020-06-25] MEDS: MELATONIN 3 MG TABLET 6 MG PO (21:03)
[2020-06-26] MEDS: PIPERACILLIN-TAZO 3.375 GM/50 ML FROZ.PIGGY IV ×2 (02:34→08:06)
[2020-06-26] MEDS: SODIUM CHLORIDE 0.9% FLUSH 10 ML IV ×2 (02:35→08:09)
[2020-06-26 02:50] VITALS: BP 112/69; PULSE 69; RESP 16; TEMP 36.4; O2SAT 95
[2020-06-26] MEDS: LEVOTHYROXINE 25 MCG TABLET PO (05:54)
[2020-06-26 07:00] VITALS: BP 123/82; PULSE 81; RESP 15; TEMP 36.6; O2SAT 95
[2020-06-26 07:42] VITALS: PULSE 86; RESP 16; O2SAT 96
[2020-06-26 07:43] VITALS: O2SAT 92
--- NOTE | 2020-06-26 07:48 | P.DS_ITS ---
History of Present Illness History of Present Illness Date Patient Seen: 06/26/20 Chief complaint: unsteady on legs, weakness Narrative: Patient is seen in cross cover for Dr. Mcrae. She is an 85-year-old female who presents with acute onset of weakness. Patient apparently was in her usual state of health which she feels has been of somewhat progressive decline over the last 6 to 8 months. She states that she has had progressive pain in her legs and buttock which has been pretty extensive for some time. Has been slowly getting worse. She has had multiple workups for this. She describes the pain is primarily buttock and burning and pain going down her legs. Sometimes it wakes her up sometimes it does not. Apparently she has had injections which have not improved. This is not really changed. She also has had progressive shortness of breath. Primarily to this is with exertion. She has had no orthopnea or PND. She states that she really is just felt weak and some of that has to do with her pain and some of it has to do with her mild shortness of breath. That does not seem to be getting any worse. She noted that over the last week she may have been kicked increasingly weak and slowly progressing with that. She really had a slight dry cough but no other changes. Yesterday she was sitting on a bench which she suddenly just rolled off in the afternoon and at that point was unable to get up. She was unable to be helped up by her . She did not feel as if she was febrile but she has not checked her temperature. She otherwise just had an all over feeling of I can not really move period was unable to use her arms with any strength or legs. She had no one-sided abnormality. No other changes. Due the fact that she was unable to get up off the floor in [place] was called and she was taken to the emergency room. At that time she was noted to have a temperature of a 102? F. she otherwise had no focal findings period and was evaluated. On getting ready for discharge she was noted to have a pulse ox in the 86 range which did respond to deep breathing and O2. She otherwise has had no specific change or complaints. Patient has not had any urinary changes. No bowel changes although maybe she is a little constipated. She has had no nausea or vomiting. She has denies any chest pain. She has had no issues with her atrial fibrillation that she knows about. She has not changed any medication recently. She has not had any swelling in her legs over her usual. No calf pain or other new complaints. Nothing that is been outside of her chronic issues. She has had no headaches. No visual symptoms. And feels as if other than the extreme weakness from yesterday she has not had any focal motor changes. Today she is feeling slightly better although still feels very weak. Very tired. Has a usual pain. Breathing comfortably today. No chest pain. No new or changing symptoms. Discharge Providers Provider Date of admission: 06/21/20 00:29 Discharge Date: 06/26/20 Primary care physician: Jyoti Mcrae MD Consults: 06/21/20 00:04 Consult to Physician Stat Comment: Consulting Provider: Bebeto Dennis Reason for consultation: Admission Has provider been notified: Yes Consult to Physician Urgent Comment: Consulting Provider: Jyoti Mcrae Reason for consultation: Admission Has provider been notified: No 06/22/20 09:14 Consult to Respiratory Therapy Evaluate & Treat Comment: Physician Instructions: Evaluate and treat 06/22/20 11:52 Consult to Physical Therapy Evaluate & Treat Comment: Physician Instructions: Evaluate and Treat Discharge provider: Jyoti Mcrae MD Summary Hospital Course Discharge Diagnosis: Pneumonia Acute diastolic CHF Hypotension Dehydration Hyponatremia Hypokalemia Weakness Constipation Anemia Atrial fibrillation Chronic back pain Hypothyroidism Hospital Course: Pneumonia: The pt presented with significant weakness, found to have pneumonia on CXR with resultant acute hypoxic respiratory failure. She was started on oxygen, which was gradually weaned off. The pt was started on Levofloxacin. On hospital day #3, the pts oxygen requirements increased again. Repeat CXR showed worsening pneumonia, and chest CT confirmed a dense right lower lobe infiltrate. Antibiotics were broadened to include Zosyn. The pt then made gradual improvement. At the time of discharge, her oxygen had been weaned off. She continued to have a mild nonproductive cough. She will continue on Augmentin at home, and f/u in clinic in 5 days. No sputum culture was able to be collected during her hospitalization. Acute diastolic CHF: Repeat CXR showed some mild pulmonary edema. The pt received a single dose of IV Lasix, with good resultant diuresis. Hypotension: The pt had hypotension on hospital day #2 that responded well to fluid resuscitation. No futher episodes noted. Dehydration with JOE: The pts creatinine normalized after IVF. Electrolyte abnormalities: After IVF and appropriate increases in her home potassium supplementation, her hypokalemia resolve and hyponatremia improved. Weakness: Thought to be related to her underlying pneumonia. This improved significantly during her hospitalization. At the time of discharge, she was walking laps in the hospital and cleared for home by PT. Anemia: The pt was noted to have significant anemia at presentation. There was no further drop, and it in fact improved while in the hospital. She was guaiac negative. She will f/u with Hematology as an outpatient regarding this. - F/U with Hematology as an outpatient Exam Vital Signs (past 8 hours): - 06/26/20 02:50 06/26/20 07:42 06/26/20 07:43 Temperature 97.6 F Pulse Rate 69 86 Respiratory Rate 16 16 Blood Pressure 112/69 Pulse Oximetry 95 96 92 Oxygen Delivery Method Room Air Oxygen Flow Rate 2 Narrative Exam Narrative: Gen: NAD, laying comfortably in bed Neck: no LAD, no JVD CV: irregularly irregular rhythm, normal rate, grade 2/6 systolic murmur Resp: crackles bilateral bases improved from yesterday, no wheezing, good air movement throughout Ext: no edema Objective Labs Result Diagrams: 06/25/20 17:09 06/25/20 17:09 Labs: Laboratory Results - last 24 hr 06/25/20 06/25/20 17:09 17:09 WBC 6.9 RBC 2.97 L Hgb 9.9 L Hct 29.3 L MCV 98.8 MCH 33.3 MCHC 33.7 RDW 13.1 Plt Count 324 Neut % (Auto) 79.1 H Lymph % (Auto) 4.7 L Kingfisher % (Auto) 15.0 H Eos % (Auto) 0.7 L Baso % (Auto) 0.5 Neut # (Auto) 5500 Lymph # (Auto) 300 L Kingfisher # (Auto) 1000 H Eos # (Auto) 100 Baso # (Auto) 0 Sodium 136 L Potassium 3.6 Chloride 100 Carbon Dioxide 29 BUN 10 Creatinine 1.12 H Estimated GFR 46.5 L BUN/Creatinine Ratio 8.9 Glucose 97 Calcium 9.1 Discharge Plan Discharge Plan Patient Disposition: Home Discharge orders & Medications Prescriptions: New potassium chloride [Klor-Con M20] 20 mEq Tablet,Er Particles/Crystals 20 meq PO DAILYCC Qty: 30 RF: 0 lidocaine 5 % Adhesive Patch,Medicated 1 ea topical BEDTIME Qty: 30 RF: 0 amoxicillin-pot clavulanate [Augmentin] 875-125 mg tablet 1 tab PO Q12H Qty: 10 RF: 0 Continued levothyroxine 25 mcg tablet 25 mcg PO DAILY Qty: 90 RF: 3 Hold Instructions: trying Naturthroid multivitamin Tablet 1 tab PO DAILY Qty: 0 RF: 0 flaxseed oil 1,000 mg Capsule 1,000 mg PO DAILY Qty: 0 RF: 0 magnesium oxide 400 MG capsule 500 mg PO DAILY Qty: 0 RF: 0 cholecalciferol (vitamin D3) [Vitamin D3] 1,000 unit tablet 2,000 unit PO QDAY Qty: 0 RF: 0 diltiazem HCl 120 mg capsule,extended release 24hr 120 mg PO QDAY Qty: 90 RF: 3 Pradaxa 150 mg capsule 150 mg PO BID Qty: 180 RF: 3 omeprazole 20 mg capsule,delayed release(DR/EC) 20 mg PO DAILY Qty: 90 RF: 1 gabapentin 600 mg tablet 600 mg PO BID Qty: 90 RF: 1 furosemide 40 mg tablet 20 mg PO QDAY RF: 0 Jakafi 10 MG tablet 10 mg PO BID Qty: 60 RF: 3 biotin 10,000 mcg Capsule 10,000 mcg PO DAILY RF: 0 metronidazole 0.75 % Gel 1 applic TOPICAL DAILY RF: 0 melatonin 5 mg Tablet 5 mg PO BEDTIME RF: 0 alpha lipoic acid 600 mg Tablet 600 mg PO BID RF: 0 escitalopram oxalate 5 mg tablet 5 mg PO DAILY RF: 0 Discontinued potassium chloride 10 mEq capsule, extended release 10 meq PO DAILY RF: 0 Follow up/Referrals: Jyoti Mcrae MD [Primary Care Provider] - 07/04/20 2:00 pm (APPT:07/04 @ 2:00 w/dr mcrae ) Skin/Wound/Dressing Care Report to your healthcare provider any signs of infection, such as:: chills, fever and night sweats Visit Report/Discharge Packet Instructions: DI for Pneumonia -- Adult, Lidocaine Transdermal Patch, Amoxicillin and Clavulanic Acid, Potassium Chloride (By mouth) Visit Report Forms: Patient Portal/API, Stroke Signs & Symptoms Discharge Data Primary Care Provider: Newlon,Jyoti Quality VTE Deep Vein Thrombosis/Pulmonary Embolism Present on Admission: No
[2020-06-26] MEDS: CHOLECALCIFEROL (VITAMIN D3) 1,000 UNIT TABLET 2000 UNIT PO (08:07)
[2020-06-26] MEDS: POTASSIUM CHLORIDE 20 MEQ TAB PO (08:07)
[2020-06-26] MEDS: GABAPENTIN 600 MG TABLET PO (08:07)
[2020-06-26] MEDS: DABIGATRAN 75 MG CAPSULE 150 MG PO (08:07)
[2020-06-26] MEDS: dilTIAZem CD 120 MG CAP PO (08:08)
[2020-06-26] MEDS: PANTOPRAZOLE 20 MG TABLET PO (08:08)
[2020-06-26] MEDS: MULTIVITAMIN 1 TABLET 1 TAB PO (08:08)
[2020-06-26] MEDS: DOCUSATE 100 MG CAPSULE PO (08:08)
[2020-06-26] MEDS: MAGNESIUM OXIDE 400 MG TABLET PO (08:08)
[2020-06-26] MEDS: ESCITALOPRAM 10 MG TABLET 5 MG PO (08:08)
--- NOTE | 2020-06-26 15:05 | PC.NURSE ---
Late entry (discharge 935am). Discharge order received from Dr. Mcrae, patient very eager to leave and her daughter is here to pick her up and assist her at home for a few days. Patient denies shortness of breath, tolerating room air this morning, 94% on RA after ambulation to bathroom. Patient states she is eating, drinking, and using the bathroom ok. Patient to follow up in office on Tuesday. 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 IV dc'd intact, right arm area surrounding IV noted to be pink with edema surrounding site, removed and encouraged patient to monitor, elevate and use compress. Discharge instructions completed by Noni coordinator, patient states she has no further questions or concerns prior to leaving and was escorted out via wheelchair by [employer] with all her belongings.
== END 2020-06-26 10:22 | disposition home or self-care (01) | DRG 177 ==
LOC: ED 23:56 → AC 06-21 00:30
PROVIDERS: Family Medicine; Admitting Provider Family Medicine; Emergency Provider Emergency Medicine; PCP Family Medicine; Referring Provider Emergency Medicine; Visit Provider Family Medicine
DX: J15.6 Pneumonia due to other Gram-negative bacteria (principal); J96.01 Acute respiratory failure with hypoxia; J81.0 Acute pulmonary edema; I50.31 Acute diastolic (congestive) heart failure; N17.9 Acute kidney failure, unspecified; E87.1 Hypo-osmolality and hyponatremia; I48.20 Chronic atrial fibrillation, unspecified; E86.0 Dehydration; E87.6 Hypokalemia; D64.9 Anemia, unspecified; I95.9 Hypotension, unspecified; N18.3 Chronic kidney disease, stage 3 (moderate); E03.9 Hypothyroidism, unspecified; K21.9 Gastro-esophageal reflux disease without esophagitis; Z85.038 Personal history of other malignant neoplasm of large intestine; R53.1 Weakness; K59.00 Constipation, unspecified; G89.29 Other chronic pain; Z11.59 Encounter for screening for other viral diseases; Z79.01 Long term (current) use of anticoagulants
CPT/HCPCS: 36415; 71045; 71260; 80048; 80053; 80320; 81001; 82140; 82550; 82553; 83605; 83690; 84145; 84443; 84484; 85025; 85610; 85730; 87040; 87635; 93005; 94618; 94667; 94668; 94760; 94762; 96361; 96365; 97110; 97116; 97161; 97530; 99232; 99238; 99284; J1940; J1956; J2405; J2543

== ENCOUNTER → 2020-07-01 14:03 | Outpatient (CLI) | payer OTHER, SELFPAY ==
[2020-06-26 09:19] VITALS: BMI 23.1
[2020-07-01 16:55] LABS: Thyroid Stimulating Hormone 4.59 uIU/mL (0.47-4.68)
[2020-07-01 17:36] LABS: Free T3, Triiodothyronine Free 2.47 pg/mL (2.77-5.27); Free T4, Direct Thyroxine 0.91 ng/dL (0.78-2.19)
== END ==
PROVIDERS: PCP Family Medicine; Referring Provider Family Medicine; Visit Provider Family Medicine
DX: E03.9 Hypothyroidism, unspecified (principal)
CPT/HCPCS: 36415; 84439; 84443; 84481

== ENCOUNTER → 2020-09-11 10:41 | Outpatient (CLI) | payer OTHER, SELFPAY ==
[2020-06-26 09:19] VITALS: BMI 23.1
--- NOTE | 2020-09-11 | DI.MG.S_ITS ---
BILATERAL DIGITAL SCREENING MAMMOGRAM 3D/2D WITH CAD: 09/11/2020 CLINICAL: Routine screening. Comparison is made to exams dated: 08/20/2019 mammogram, 08/18/2018 mammogram, and 08/02/2017 mammogram - [facility]. There are scattered fibroglandular elements in both breasts. Current study was also evaluated with a Computer Aided Detection (CAD) system. No significant masses, calcifications, or other findings are seen in either breast. There has been no significant interval change. IMPRESSION: NEGATIVE There is no mammographic evidence of malignancy. A 1 year screening mammogram is recommended. This exam was interpreted at Station ID: [id number]. NOTE: For mammograms, a report in lay terms will be sent to the patient. Approximately 15% of breast malignancies will not be visualized mammographically. In the management of a palpable breast mass, a negative mammogram must not discourage biopsy of a clinically suspicious lesion. Electronically Signed By: Tom perez/joni:09/11/2020 11:08:40 letter sent: Normal Exam ACR BI-RADS Category 1: Negative 3341F
== END ==
PROVIDERS: PCP Family Medicine; Referring Provider Family Medicine; Visit Provider Family Medicine
DX: Z12.31 Encounter for screening mammogram for malignant neoplasm of breast (principal)
CPT/HCPCS: 77063; 77067

== ENCOUNTER → 2020-12-15 10:38 | Outpatient (CLI) | payer OTHER, SELFPAY ==
[2020-06-26 09:19] VITALS: BMI 23.1
[2020-12-15 13:06] LABS: Vitamin B12 Reflex MMA if <400 372 pg/mL (239-931)
[2020-12-17 00:51] LABS: Methylmalonic Acid,Serum 514 nmol/L (0-378)
== END ==
PROVIDERS: PCP Family Medicine; Referring Provider Psychiatry & Neurology Neurology; Visit Provider Psychiatry & Neurology Neurology
DX: G60.9 Hereditary and idiopathic neuropathy, unspecified (principal)
CPT/HCPCS: 36415; 82607; 83921

== ENCOUNTER → 2021-01-22 11:25 | Outpatient (CLI) | payer OTHER, SELFPAY ==
[2020-06-26 09:19] VITALS: BMI 23.1
--- NOTE | 2021-01-22 11:27 | DI.RAD.S_ITS ---
PROCEDURE: XR HIP W PEL IF DONE LT 2V INDICATIONS: left hip pain TECHNIQUE: AP pelvis with lateral view(s) of the left hip(s). COMPARISON: [facility], , HIP 2V LEFT, 05/19/2012, 13:36. FINDINGS: Bones: No fractures or dislocations. Pelvic ring appears intact. No suspicious bony lesions. Mild left hip osseous hypertrophy compatible with osteoarthritis. Lower lumbar spine degenerative disc disease and facet arthropathy. Soft tissues: The visualized bowel gas pattern is normal. No suspicious soft tissue calcifications. Anastomotic staple line projects over the right lower pelvis. IMPRESSION: Mild left hip osteoarthritis. Dictated by: Brittni Morales MD, PhD on 01/22/2021 at 13:25 Approved by: Brittni Morales MD, PhD on 01/22/2021 at 13:25
== END ==
PROVIDERS: PCP Family Medicine; Referring Provider Family Medicine; Visit Provider Family Medicine
DX: M16.12 Unilateral primary osteoarthritis, left hip (principal)
CPT/HCPCS: 73502

== ENCOUNTER → 2021-02-27 09:34 | Outpatient (CLI) | payer OTHER, SELFPAY ==
[2020-06-26 09:19] VITALS: BMI 23.1
--- NOTE | 2021-02-27 09:35 | DI.RAD.S_ITS ---
PROCEDURE: XR ANKLE LT MIN 3V INDICATIONS: lateral malleolar pain, post fall TECHNIQUE: Three views of the ankle were acquired. COMPARISON: None. FINDINGS: Bones: There is a minimally displaced oblique fracture of the distal fibular metaphysis extending into the mortise joint. No widening of the medial clear space is seen. Soft tissues: Soft tissue edema is seen overlying the lateral malleolus. IMPRESSION: Minimally displaced oblique fracture of the distal fibular metaphysis. Dictated by: Tom Bustamante M.D. on 02/27/2021 at 9:58 Approved by: Tom Bustamante M.D. on 02/27/2021 at 9:59
== END ==
PROVIDERS: PCP Family Medicine; Referring Provider Physician Assistant; Visit Provider Physician Assistant
DX: M25.572 Pain in left ankle and joints of left foot (principal); S89.302A Unspecified physeal fracture of lower end of left fibula, initial encounter for closed fracture; X58.XXXA Exposure to other specified factors, initial encounter
CPT/HCPCS: 73610

== ENCOUNTER → 2021-06-02 14:59 | Outpatient (CLI) | payer OTHER, SELFPAY ==
[2020-06-26 09:19] VITALS: BMI 23.1
== END ==
PROVIDERS: PCP Family Medicine; Referring Provider Family Medicine; Visit Provider Family Medicine
DX: S82.832D Other fracture of upper and lower end of left fibula, subsequent encounter for closed fracture with routine healing (principal); M81.0 Age-related osteoporosis without current pathological fracture; Z78.0 Asymptomatic menopausal state; E07.9 Disorder of thyroid, unspecified
CPT/HCPCS: 77080

== ENCOUNTER → 2021-06-03 14:41 | Outpatient (CLI) | payer OTHER, SELFPAY ==
[2020-06-26 09:19] VITALS: BMI 23.1
[2021-06-03 17:19] LABS: TSH w/ Reflex to FT4 3.12 uIU/mL (0.47-4.68)
== END ==
PROVIDERS: PCP Family Medicine; Referring Provider Family Medicine; Visit Provider Family Medicine
DX: E03.9 Hypothyroidism, unspecified (principal)
CPT/HCPCS: 36415; 84443

== ENCOUNTER → 2021-09-16 10:07 | Outpatient (CLI) | payer OTHER, SELFPAY ==
[2020-06-26 09:19] VITALS: BMI 23.1
--- NOTE | 2021-09-16 10:08 | DI.MG.S_ITS ---
BILATERAL DIGITAL SCREENING MAMMOGRAM 3D/2D WITH CAD: 09/16/2021 CLINICAL: Routine screening. Comparison is made to exams dated: 09/11/2020 mammogram, 08/20/2019 mammogram, and 08/18/2018 mammogram - [facility]. There are scattered fibroglandular elements in both breasts. Current study was also evaluated with a Computer Aided Detection (CAD) system. No significant masses, calcifications, or other findings are seen in either breast. There has been no significant interval change. IMPRESSION: NEGATIVE There is no mammographic evidence of malignancy. A 1 year screening mammogram is recommended. This exam was interpreted at Station ID: [id number]. NOTE: For mammograms, a report in lay terms will be sent to the patient. Approximately 15% of breast malignancies will not be visualized mammographically. In the management of a palpable breast mass, a negative mammogram must not discourage biopsy of a clinically suspicious lesion. Electronically Signed By: Bubba Monroy M.D., jr/joni:09/16/2021 12:35:53 letter sent: Normal Exam ACR BI-RADS Category 1: Negative 3341F
== END ==
PROVIDERS: PCP Family Medicine; Referring Provider Family Medicine; Visit Provider Family Medicine
DX: Z12.31 Encounter for screening mammogram for malignant neoplasm of breast (principal)
CPT/HCPCS: 77063; 77067

== ENCOUNTER → 2021-12-01 11:04 | Outpatient (CLI) | payer OTHER, SELFPAY ==
[2020-06-26 09:19] VITALS: BMI 23.1
== END ==
PROVIDERS: PCP Family Medicine; Referring Provider Family Medicine; Visit Provider Family Medicine
DX: T81.31XA Disruption of external operation (surgical) wound, not elsewhere classified, initial encounter (principal); S81.801A Unspecified open wound, right lower leg, initial encounter; L08.9 Local infection of the skin and subcutaneous tissue, unspecified; I48.91 Unspecified atrial fibrillation; D45 Polycythemia vera; D75.81 Myelofibrosis; Z79.01 Long term (current) use of anticoagulants; Z79.899 Other long term (current) drug therapy; Z95.0 Presence of cardiac pacemaker; Z85.828 Personal history of other malignant neoplasm of skin
CPT/HCPCS: 11042; 87070; 87075; 87077; 87147; 87186; 87205; 93922; 99204; 99213

== ENCOUNTER → 2021-12-09 11:05 | Outpatient (CLI) | payer OTHER, SELFPAY ==
[2020-06-26 09:19] VITALS: BMI 23.1
== END ==
PROVIDERS: PCP Family Medicine; Referring Provider Family Medicine; Visit Provider Family Medicine
DX: T81.31XA Disruption of external operation (surgical) wound, not elsewhere classified, initial encounter (principal); S81.801A Unspecified open wound, right lower leg, initial encounter; B95.7 Other staphylococcus as the cause of diseases classified elsewhere; I48.91 Unspecified atrial fibrillation; D84.821 Immunodeficiency due to drugs; Z79.899 Other long term (current) drug therapy; Z79.01 Long term (current) use of anticoagulants; Z85.828 Personal history of other malignant neoplasm of skin; Z95.0 Presence of cardiac pacemaker
CPT/HCPCS: 11042; 87070; 87075; 87077; 87186; 87205; 99213

== ENCOUNTER → 2021-12-23 10:53 | Outpatient (CLI) | payer OTHER, SELFPAY ==
[2020-06-26 09:19] VITALS: BMI 23.1
== END ==
PROVIDERS: PCP Family Medicine; Referring Provider Family Medicine; Visit Provider Family Medicine
DX: T81.31XA Disruption of external operation (surgical) wound, not elsewhere classified, initial encounter (principal); S81.801A Unspecified open wound, right lower leg, initial encounter; B95.7 Other staphylococcus as the cause of diseases classified elsewhere; R60.0 Localized edema; I48.91 Unspecified atrial fibrillation; D75.81 Myelofibrosis; D84.821 Immunodeficiency due to drugs; Z79.899 Other long term (current) drug therapy; Z79.01 Long term (current) use of anticoagulants; Z85.828 Personal history of other malignant neoplasm of skin
CPT/HCPCS: 11042; 99213

== ENCOUNTER → 2021-12-30 15:12 | Outpatient (CLI) | payer OTHER, SELFPAY ==
[2020-06-26 09:19] VITALS: BMI 23.1
== END ==
PROVIDERS: PCP Family Medicine; Referring Provider Family Medicine; Visit Provider Family Medicine
DX: T81.32XA Disruption of internal operation (surgical) wound, not elsewhere classified, initial encounter (principal); I87.2 Venous insufficiency (chronic) (peripheral); L97.812 Non-pressure chronic ulcer of other part of right lower leg with fat layer exposed; R60.0 Localized edema; I48.91 Unspecified atrial fibrillation; D75.81 Myelofibrosis; D84.821 Immunodeficiency due to drugs; Z79.899 Other long term (current) drug therapy; Z79.01 Long term (current) use of anticoagulants; Z85.828 Personal history of other malignant neoplasm of skin; Z95.0 Presence of cardiac pacemaker
CPT/HCPCS: 11042; 99212

== ENCOUNTER → 2022-01-06 13:36 | Outpatient (CLI) | payer OTHER, SELFPAY ==
[2020-06-26 09:19] VITALS: BMI 23.1
== END ==
PROVIDERS: PCP Family Medicine; Referring Provider Family Medicine; Visit Provider Family Medicine
DX: T81.31XA Disruption of external operation (surgical) wound, not elsewhere classified, initial encounter (principal); I87.2 Venous insufficiency (chronic) (peripheral); L97.812 Non-pressure chronic ulcer of other part of right lower leg with fat layer exposed; R60.0 Localized edema; D75.81 Myelofibrosis; D84.821 Immunodeficiency due to drugs; I48.91 Unspecified atrial fibrillation; Z79.899 Other long term (current) drug therapy; Z79.01 Long term (current) use of anticoagulants; Z85.828 Personal history of other malignant neoplasm of skin; Z95.0 Presence of cardiac pacemaker
CPT/HCPCS: 97597

== ENCOUNTER → 2022-01-13 13:32 | Outpatient (CLI) | payer OTHER, SELFPAY ==
[2020-06-26 09:19] VITALS: BMI 23.1
== END ==
PROVIDERS: PCP Family Medicine; Referring Provider Family Medicine; Visit Provider Family Medicine
DX: T81.31XA Disruption of external operation (surgical) wound, not elsewhere classified, initial encounter (principal); I87.2 Venous insufficiency (chronic) (peripheral); L97.812 Non-pressure chronic ulcer of other part of right lower leg with fat layer exposed; I48.91 Unspecified atrial fibrillation; D75.81 Myelofibrosis; D84.821 Immunodeficiency due to drugs; Z79.899 Other long term (current) drug therapy; Z79.01 Long term (current) use of anticoagulants; Z85.828 Personal history of other malignant neoplasm of skin; Z95.0 Presence of cardiac pacemaker
CPT/HCPCS: 11042

== ENCOUNTER → 2022-01-20 14:35 | Outpatient (CLI) | payer OTHER, SELFPAY ==
[2020-06-26 09:19] VITALS: BMI 23.1
== END ==
PROVIDERS: PCP Family Medicine; Referring Provider Family Medicine; Visit Provider Family Medicine
DX: T81.31XA Disruption of external operation (surgical) wound, not elsewhere classified, initial encounter (principal); I87.2 Venous insufficiency (chronic) (peripheral); L97.812 Non-pressure chronic ulcer of other part of right lower leg with fat layer exposed; R60.0 Localized edema; I48.91 Unspecified atrial fibrillation; D75.81 Myelofibrosis; Z79.899 Other long term (current) drug therapy; D84.821 Immunodeficiency due to drugs; Z79.01 Long term (current) use of anticoagulants; Z85.828 Personal history of other malignant neoplasm of skin; Z95.0 Presence of cardiac pacemaker
CPT/HCPCS: 99212

== ENCOUNTER → 2022-01-27 14:07 | Outpatient (CLI) | payer OTHER, SELFPAY ==
[2020-06-26 09:19] VITALS: BMI 23.1
== END ==
PROVIDERS: PCP Family Medicine; Referring Provider Family Medicine; Visit Provider Family Medicine
DX: Z09 Encounter for follow-up examination after completed treatment for conditions other than malignant neoplasm (principal); I48.91 Unspecified atrial fibrillation; D75.81 Myelofibrosis; Z79.899 Other long term (current) drug therapy; Z79.01 Long term (current) use of anticoagulants; Z85.828 Personal history of other malignant neoplasm of skin; Z95.0 Presence of cardiac pacemaker
CPT/HCPCS: 99212

== ENCOUNTER → 2022-06-11 09:26 | Outpatient (CLI) | payer OTHER, SELFPAY ==
[2022-04-07 09:59] VITALS: BMI 23.1
[2022-06-11 10:18] LABS: Add Manual Diff / Slide Review NO; Basophils Absolute Auto 0 /uL (0-100); Basophils Percent Auto 0.2 % (0-2); Eosinophils Absolute Auto 100 /uL (0-450); Eosinophils Percent Auto 0.5 % (2-4); Hematocrit 33.7 % (36-46); Hemoglobin 11.5 g/dL (12.0-16.0); Lymphocytes Absolute Auto 600 /uL (1100-4500); Lymphocytes Percent Auto 4.6 % (25-40); Mean Corpuscular HGB Conc 34.2 % (30-36); Mean Corpuscular Hemoglobin 33.8 PG (26-34); Mean Corpuscular Volume 99.1 fL (80-100); Monocytes Absolute Auto 1000 /uL (0-900); Monocytes Percent Auto 7.2 % (3-14); Neutrophils Absolute Auto 11600 /uL (1500-7000); Neutrophils Percent Auto 87.5 % (50-75); Platelet Count 248 X10^3/uL (150-400); Red Cell Distribution Width 14.1 % (11.6-14.8); White Blood Cell Count 13.3 X10^3/uL (4.5-11.0)
[2022-06-11 10:36] LABS: Alanine Aminotransferase 17 IU/L (<35); Albumin 3.9 g/dL (3.5-5.0); Albumin Globulin Ratio 1.2 (1.0-2.8); Alkaline Phosphatase 104 U/L (38-126); Aspartate Aminotransferase 32 IU/L (14-36); BUN Creatinine Ratio 22.6 (6-22); Bilirubin Total 0.5 mg/dL (0.2-1.3); Blood Urea Nitrogen 28 mg/dL (7-17); Calcium 8.7 mg/dL (8.4-10.2); Carbon Dioxide 26 mmol/L (22-32); Chloride 100 mmol/L (98-107); Estimated Glomerular Filt Rate 43 mL/min (>60); Globulin 3.3 g/dL (1.7-4.1); Glucose 92 mg/dL (80-110); HEMOLYSIS < 15 (0-50); Lactate Dehydrogenase 620 U/L (313-618); Potassium 3.7 mmol/L (3.4-5.1); Sodium 133 mmol/L (137-145); Total Protein 7.2 g/dL (6.3-8.2)
[2022-06-11 10:45] LABS: NT-proBNP (BNP-Adult 18+) 2290 pg/mL (<450)
[2022-06-11 10:48] LABS: Cholesterol 292 mg/dL (140-199); HDL Cholesterol 59 mg/dL (40-60); LDL Cholesterol Calculated 206 mg/dL (<100); Magnesium 2.4 mg/dL (1.6-2.3); Triglycerides 133 mg/dL (35-150)
[2022-06-11 12:59] LABS: Thyroid Stimulating Hormone 1.99 uIU/mL (0.47-4.68)
[2022-06-15 13:37] LABS: Beta-2-Microglobulin 2.6 mg/L (0.6-2.4)
== END ==
PROVIDERS: Internal Medicine Hematology & Oncology; PCP Family Medicine; Referring Provider Internal Medicine Cardiovascular Disease; Visit Provider Internal Medicine Cardiovascular Disease
DX: R06.02 Shortness of breath (principal); I34.0 Nonrheumatic mitral (valve) insufficiency; E78.5 Hyperlipidemia, unspecified; I10 Essential (primary) hypertension; D45 Polycythemia vera
CPT/HCPCS: 36415; 80053; 80061; 82232; 83615; 83735; 83880; 84443; 85025

== ENCOUNTER → 2022-09-22 13:51 | Outpatient (CLI) | payer OTHER, SELFPAY ==
[2022-04-07 09:59] VITALS: BMI 23.1
--- NOTE | 2022-09-22 | DI.MG.S_ITS ---
BILATERAL DIGITAL SCREENING MAMMOGRAM 3D/2D WITH CAD: 09/22/2022 CLINICAL: Routine screening. Comparison is made to exams dated: 09/16/2021 mammogram, 09/11/2020 mammogram, and 08/20/2019 mammogram - [facility]. There are scattered areas of fibroglandular density in both breasts (category b / 25%-50% glandular tissue). Current study was also evaluated with a Computer Aided Detection (CAD) system. No significant masses, calcifications, or other findings are seen in either breast. There has been no significant interval change. IMPRESSION: NEGATIVE There is no mammographic evidence of malignancy. A 1 year screening mammogram is recommended. This exam was interpreted at Station ID: [id number]. NOTE: For mammograms, a report in lay terms will be sent to the patient. Approximately 15% of breast malignancies will not be visualized mammographically. In the management of a palpable breast mass, a negative mammogram must not discourage biopsy of a clinically suspicious lesion. Electronically Signed By: Farrukh gonzales/joni:09/23/2022 16:49:19 letter sent: Normal Exam ACR BI-RADS Category 1: Negative 3341F
== END ==
PROVIDERS: PCP Family Medicine; Referring Provider Family Medicine; Visit Provider Family Medicine
DX: Z12.31 Encounter for screening mammogram for malignant neoplasm of breast (principal)
CPT/HCPCS: 77063; 77067

== ENCOUNTER → 2022-12-13 13:12 | Outpatient (CLI) | payer OTHER, SELFPAY ==
[2022-04-07 09:59] VITALS: BMI 23.1
[2022-12-13 14:18] LABS: BUN Creatinine Ratio 14.8 (6-22); Blood Urea Nitrogen 20 mg/dL (7-17); Calcium 9.2 mg/dL (8.4-10.2); Carbon Dioxide 30 mmol/L (22-32); Chloride 98 mmol/L (98-107); Estimated Glomerular Filt Rate 39 mL/min (>60); Glucose 77 mg/dL (80-110); HEMOLYSIS < 15 (0-50); Potassium 4.1 mmol/L (3.4-5.1); Sodium 138 mmol/L (137-145)
== END ==
PROVIDERS: PCP Family Medicine; Referring Provider Internal Medicine Cardiovascular Disease; Visit Provider Internal Medicine Cardiovascular Disease
DX: I10 Essential (primary) hypertension (principal)
CPT/HCPCS: 36415; 80048

== ENCOUNTER → 2023-01-11 11:54 | Outpatient (CLI) | payer OTHER, SELFPAY ==
[2022-04-07 09:59] VITALS: BMI 23.1
[2023-01-11 13:06] LABS: Influenza A - CEPHEID Flu A NEGATIVE (NEGATIVE); Influenza B - CEPHEID Flu B NEGATIVE (NEGATIVE); Respiratory Syncytial Virus Negative (Negative)
[2023-01-11 13:37] LABS: COVID-19 CEPHEID 4-PLEX PCR Negative (Negative)
== END ==
PROVIDERS: PCP Family Medicine; Visit Provider Physician Assistant
DX: J02.9 Acute pharyngitis, unspecified (principal); R05.9 Cough, unspecified; Z20.822 Contact with and (suspected) exposure to COVID-19
CPT/HCPCS: 0241U

== ENCOUNTER → 2023-01-12 11:35 | Outpatient (CLI) | payer OTHER, SELFPAY ==
[2022-04-07 09:59] VITALS: BMI 23.1
[2023-01-12 13:59] LABS: BUN Creatinine Ratio 14.3 (6-22); Blood Urea Nitrogen 20 mg/dL (7-17); Calcium 8.5 mg/dL (8.4-10.2); Carbon Dioxide 29 mmol/L (22-32); Chloride 100 mmol/L (98-107); Estimated Glomerular Filt Rate 37 mL/min (>60); Glucose 69 mg/dL (80-110); HEMOLYSIS < 15 (0-50); Sodium 134 mmol/L (137-145)
== END ==
PROVIDERS: PCP Family Medicine; Referring Provider Internal Medicine Cardiovascular Disease; Visit Provider Internal Medicine Cardiovascular Disease
DX: I50.22 Chronic systolic (congestive) heart failure (principal)
CPT/HCPCS: 36415; 80048

== ENCOUNTER → 2023-01-18 11:15 | Outpatient (CLI) | payer OTHER, SELFPAY ==
[2022-04-07 09:59] VITALS: BMI 23.1
[2023-01-18 11:42] LABS: Cholesterol 179 mg/dL (140-199); HDL Cholesterol 67 mg/dL (40-60); LDL Cholesterol Calculated 94 mg/dL (<100); Triglycerides 90 mg/dL (35-150)
[2023-01-18 15:20] LABS: Creatinine Urine Random 13.5 mg/dL
[2023-01-18 15:36] LABS: Microalbumin Urine Random < 0.6 mg/dL (0-1.6)
== END ==
PROVIDERS: PCP Family Medicine; Referring Provider Family Medicine; Visit Provider Family Medicine
DX: I10 Essential (primary) hypertension (principal)
CPT/HCPCS: 36415; 80061; 82043; 82570

== ENCOUNTER → 2023-02-09 11:13 | Outpatient (CLI) | payer OTHER, SELFPAY ==
[2022-04-07 09:59] VITALS: BMI 23.1
[2023-02-09 16:52] LABS: BUN Creatinine Ratio 26.7 (6-22); Blood Urea Nitrogen 39 mg/dL (7-17); Calcium 9.4 mg/dL (8.4-10.2); Carbon Dioxide 28 mmol/L (22-32); Chloride 103 mmol/L (98-107); Estimated Glomerular Filt Rate 35 mL/min (>60); Glucose 62 mg/dL (80-110); HEMOLYSIS < 15 (0-50); Potassium 4.6 mmol/L (3.4-5.1); Sodium 138 mmol/L (137-145)
== END ==
PROVIDERS: PCP Family Medicine; Referring Provider Internal Medicine Cardiovascular Disease; Visit Provider Internal Medicine Cardiovascular Disease
DX: I10 Essential (primary) hypertension (principal)
CPT/HCPCS: 36415; 80048

== ENCOUNTER → 2023-03-02 12:51 | Outpatient (CLI) | payer OTHER, SELFPAY ==
[2022-04-07 09:59] VITALS: BMI 23.1
[2023-03-02 14:29] LABS: BUN Creatinine Ratio 20.3 (6-22); Blood Urea Nitrogen 30 mg/dL (7-17); Calcium 9.5 mg/dL (8.4-10.2); Carbon Dioxide 28 mmol/L (22-32); Chloride 100 mmol/L (98-107); Estimated Glomerular Filt Rate 34 mL/min (>60); Glucose 82 mg/dL (80-110); HEMOLYSIS 20 (0-50); Potassium 5.1 mmol/L (3.4-5.1); Sodium 135 mmol/L (137-145)
== END ==
PROVIDERS: PCP Family Medicine; Referring Provider Internal Medicine Cardiovascular Disease; Visit Provider Internal Medicine Cardiovascular Disease
DX: I50.22 Chronic systolic (congestive) heart failure (principal)
CPT/HCPCS: 36415; 80048

== ENCOUNTER → 2023-04-20 10:49 | Outpatient (CLI) | payer OTHER, SELFPAY ==
[2022-04-07 09:59] VITALS: BMI 23.1
[2023-04-20 13:55] LABS: Chloride 95 mmol/L (98-107); HEMOLYSIS < 15 (0-50)
[2023-04-20 13:58] LABS: BUN Creatinine Ratio 16.7 (6-22); Blood Urea Nitrogen 22 mg/dL (7-17); Calcium 8.8 mg/dL (8.4-10.2); Carbon Dioxide 33 mmol/L (22-32); Estimated Glomerular Filt Rate 39 mL/min (>60); Glucose 87 mg/dL (80-110); Potassium 4.2 mmol/L (3.4-5.1); Sodium 132 mmol/L (137-145)
== END ==
PROVIDERS: PCP Family Medicine; Referring Provider Internal Medicine Cardiovascular Disease; Visit Provider Internal Medicine Cardiovascular Disease
DX: I10 Essential (primary) hypertension (principal)
CPT/HCPCS: 36415; 80048

== ENCOUNTER 2023-04-21 14:35 | Emergency (ER) | payer OTHER, SELFPAY ==
[2022-04-07 09:59] VITALS: BMI 23.1
[2023-04-21] VITALS (17 sets, daily range): BP systolic 92–140; BP diastolic 50–67; PULSE 60–69; RESP 12–24; TEMP 36.6; O2SAT 95–98; BMI 22.8
--- NOTE | 2023-04-21 14:48 | DI.RAD.S_ITS ---
PROCEDURE: XR CHEST 1V INDICATIONS: chest pain TECHNIQUE: One view of the chest was acquired. COMPARISON: [facility], CR, XR CHEST 1V, 06/25/2020, 8:31. FINDINGS: Surgical changes and devices: Left chest wall AICD leads are in the region of right atrium and right ventricle. Lungs and pleura: Lungs are clear. No pleural effusions or pneumothorax. Mediastinum: Mediastinal contours appear normal. Heart size is normal. Bones and chest wall: No suspicious bony lesions. Overlying soft tissues appear unremarkable. IMPRESSION: No acute cardiopulmonary pathology. Dictated by: Og Cody M.D. on 04/21/2023 at 15:31 Approved by: Og Cody M.D. on 04/21/2023 at 15:33
[2023-04-21 15:15] LABS: Add Manual Diff / Slide Review NO; Basophils Absolute Auto 0 /uL (0-100); Basophils Percent Auto 0.4 % (0-2); Eosinophils Absolute Auto 0 /uL (0-450); Eosinophils Percent Auto 0.5 % (2-4); Hematocrit 29.2 % (36-46); INR 1.5 (0.9-1.3); Lymphocytes Absolute Auto 900 /uL (1100-4500); Mean Corpuscular HGB Conc 34.1 % (30-36); Mean Corpuscular Hemoglobin 34.9 PG (26-34); Mean Corpuscular Volume 102.4 fL (80-100); Monocytes Absolute Auto 800 /uL (0-900); Monocytes Percent Auto 12.8 % (3-14); Neutrophils Absolute Auto 4800 /uL (1500-7000); Neutrophils Percent Auto 72.3 % (50-75); Platelet Count 335 X10^3/uL (150-400); Prothrombin Time 17.3 SECONDS (10.1-12.7); Red Blood Cell Count 2.85 X10^6/uL (4.0-5.2); Red Cell Distribution Width 13.7 % (11.6-14.8); White Blood Cell Count 6.6 X10^3/uL (4.5-11.0)
[2023-04-21 15:20] LABS: Alanine Aminotransferase 28 IU/L (<35); Albumin 4.1 g/dL (3.5-5.0); Albumin Globulin Ratio 1.5 (1.0-2.8); Alkaline Phosphatase 85 U/L (38-126); Aspartate Aminotransferase 46 IU/L (14-36); BUN Creatinine Ratio 14.1 (6-22); Bilirubin Total 0.3 mg/dL (0.2-1.3); Blood Urea Nitrogen 20 mg/dL (7-17); Calcium 8.8 mg/dL (8.4-10.2); Carbon Dioxide 34 mmol/L (22-32); Chloride 97 mmol/L (98-107); Creatine Kinase 277 U/L (30-135); Estimated Glomerular Filt Rate 36 mL/min (>60); Globulin 2.8 g/dL (1.7-4.1); Glucose 95 mg/dL (80-110); HEMOLYSIS < 15 (0-50); Lipase 107 U/L (23-300); Magnesium 2.5 mg/dL (1.6-2.3); Potassium 4.1 mmol/L (3.4-5.1); Sodium 134 mmol/L (137-145); Total Protein 6.9 g/dL (6.3-8.2)
[2023-04-21 15:28] LABS: NT-proBNP (BNP-Adult 18+) 2430 pg/mL (<450)
[2023-04-21 15:31] LABS: Troponin I < 0.012 ng/mL (0.01-0.034)
[2023-04-21 15:39] LABS: PTT Partial Thromboplastin Tim 86 SECONDS (26-36)
--- NOTE | 2023-04-21 17:03 | ED_ITS ---
HPI - SOB/Dyspnea General Chief Complaint: Shortness of Breath/Dyspnea Stated Complaint: Sent by ballpoint pen cartridge tester Time Seen by Provider: 04/21/23 17:03 Source: patient Mode of arrival: Ambulatory Limitations: no limitations History of Present Illness HPI Narrative: Patient is a 88-year-old female history of atrial fibrillation on Pradaxa, hyperlipidemia, memory loss presenting today with unknown chief complaint. She reports that her ballpoint pen cartridge tester recommended that she come here. She reports that yesterday she had swelling in her legs today she does not have swelling in her legs. She denies any chest pain or shortness of breath. She is not had fever or chills. She reports that she was started on spironolactone fairly recently it appears that it was filled in January. She says that she is to take her blood pressure every morning and if blood pressures less than 100 she does not take the spironolactone. She says she has felt hill dizzy and weak. She says when her blood pressure was 106 she took the spironolactone and then her blood pressure dropped into the 80s.. She denies any fever or chills. She just feels generally weak tired she has some dizziness. Related Data Home Medications Medication Instructions Recorded Confirmed magnesium oxide 500 mg PO DAILY ##0 01/05/18 04/13/23 cholecalciferol (vitamin D3) 25 2,000 unit PO QDAY #0 tabs 06/19/18 04/13/23 mcg (1,000 unit) tablet (Vitamin D3) furosemide 40 mg tablet 20 mg PO QDAY water retention 11/21/19 04/13/23 alpha lipoic acid 600 mg tablet 600 mg PO BID 06/21/20 04/13/23 biotin 10,000 mcg capsule 10,000 mcg PO DAILY 06/21/20 04/13/23 melatonin 5 mg tablet 5 mg PO BEDTIME 06/21/20 04/13/23 beta carotene 7,500 mcg (25,000 25,000 unit PO DAILY 07/19/22 04/13/23 unit) capsule niacinamide 500 mg tablet 500 mg PO DAILY 07/19/22 04/13/23 metoprolol succinate 25 mg 25 mg PO DAILY 04/13/23 04/13/23 tablet,extended release 24 hr sacubitril 24 mg-valsartan 26 mg 1 tab PO BID 04/13/23 04/13/23 tablet spironolactone 25 mg tablet 12.5 mg PO DAILY 04/13/23 04/13/23 Previous Rx's Medication Instructions Recorded diltiazem HCl 120 mg 120 mg PO QDAY #90 tabs 01/16/19 capsule,extended release 24 hr dabigatran etexilate 150 mg 150 mg PO BID #180 caps 03/14/19 capsule (Pradaxa) omeprazole 20 mg capsule,delayed 20 mg PO DAILY #90 caps 12/05/19 release potassium chloride 20 mEq 20 meq PO DAILYCC #30 tabs 06/26/20 tablet,extended release(part/cryst) (Klor-Con M) ruxolitinib 20 mg tablet (Jakafi) 10 mg PO BID #30 tabs 12/13/22 Disabled Parking #1 ea 12/22/22 levothyroxine 25 mcg tablet See Rx Instructions .Route 12/23/22 .COMPLEX #90 tabs atorvastatin 20 mg tablet See Rx Instructions .Route 01/26/23 .COMPLEX #90 tabs gabapentin 600 mg tablet See Rx Instructions .Route 03/01/23 .COMPLEX #450 tabs escitalopram oxalate 5 mg tablet See Rx Instructions .Route 03/08/23 .COMPLEX #90 tabs tramadol 50 mg tablet 50 mg PO BID PRN pain #60 tabs 04/08/23 Allergies Allergy/AdvReac Type Severity Reaction Status Date / Time adhesive [ADHESIVE] Allergy Mild SENSITIVE Verified 04/21/23 14:45 hydroxyurea [HYDROXYUREA] Allergy Mild ITCHY Verified 04/21/23 14:45 hydroxyzine [HYDROXYZINE] Allergy Mild ITCHY Verified 04/21/23 14:45 codeine [CODEINE] Allergy Unknown dizzyness/f Verified 04/21/23 14:45 ainting Review of Systems Review of Systems ROS Unobtainable: All systems reviewed & are unremarkable except as noted in HPI and below Patient History Medical History Acquired hypothyroidism (02/01/13) Arthralgia Cardiac arrhythmia Chronic anticoagulation Chronic atrial fibrillation Colorectal cancer, stage I (~2007) Cutaneous lupus erythematosus (~2002) Cyst of thyroid Disrupted sleep-wake cycle Disturbance in sleep behavior (04/24/14) DJD (degenerative joint disease) Essential hypertension Facet arthropathy, lumbosacral Fracture of distal fibula GERD (gastroesophageal reflux disease) Idiopathic peripheral autonomic neuropathy, unspecified 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) Low back pain Lumbosacral spondylosis with radiculopathy Malignant neoplasm of colon, unspecified (~2007) 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) Myelofibrosis Oral lichen planus (~2009) Peripheral neuropathy (~2012) Polycythemia vera Polycythemia vera (~2006) Postherpetic neuralgia (~2012) Sciatica Spondylosis without myelopathy or radiculopathy, lumbosacral region Stage 3 chronic kidney disease (12/04/14) Surgical History History of bone marrow biopsy (~2013) History of local excision of skin lesion History of thyroid surgery Presence of cardiac pacemaker (~2005) S/P medial meniscectomy of right knee (~1999) Status post colectomy (~2007) Status post hysterectomy (~1974) Social History marital status: household members: spouse Smoking Status: Never smoker alcohol intake: current substance use type: does not use well-balanced diet: daily or most days Smoking Status: Never smoker alcohol intake frequency: 0-2 drinks per day Substance Use Type: does not use Exam Initial Vital Signs Initial Vital Signs: Vital Signs Temperature 97.8 F 04/21/23 14:42 Pulse Rate 69 04/21/23 14:42 Respiratory Rate 18 04/21/23 14:42 Blood Pressure 123/58 L 04/21/23 14:42 Pulse Oximetry 97 04/21/23 14:42 Oxygen Delivery Method Room Air 04/21/23 14:42 GENERAL: Alert pleasant 88-year-old female and in no acute distress. HEENT: Head atraumatic,EOMI, pupils reactive, face symmetric, moist mucous membranes CARDIOVASCULAR: Regular rate and rhythm without murmurs, rubs or gallops. RESPIRATORY: Breath sounds equal bilaterally, no wheezes rales or rhonchi. ABDOMEN: Soft, nontender. Normoactive bowel sounds all 4 quadrants. No gua rding or rebound. EXTREMITIES: Normal range of motion, no clubbing or edema. Neurovascularly intact NEUROLOGICAL: Alert and oriented x4. SKIN: Warm, dry, no laceration, no petechiae, no rashes or lesions. Course Orders Ordered: Discontinued Medications Furosemide (Furosemide 40 Mg/4 Ml Vial) 40 mg IV NOW ONE Stop: 04/21/23 17:05 Last Admin: 04/21/23 17:19 Dose: 40 mg Documented By: FRANCO Vital Signs Vital signs: Vital Signs - 8 hr 04/21/23 14:42 04/21/23 14:52 04/21/23 15:07 Temperature 97.8 F Pulse Rate 69 68 Respiratory Rate 18 24 Blood Pressure 123/58 L 134/60 Pulse Oximetry 97 Oxygen Delivery Method Room Air 04/21/23 15:13 04/21/23 15:09 04/21/23 15:09 Temperature 97.8 F Pulse Rate 61 67 Respiratory Rate 20 Blood Pressure 134/60 121/67 Pulse Oximetry 98 Oxygen Delivery Method Room Air 04/21/23 15:16 04/21/23 15:16 04/21/23 15:30 Temperature Pulse Rate 61 Respiratory Rate 12 Blood Pressure 111/56 L 104/55 L Pulse Oximetry 97 Oxygen Delivery Method 04/21/23 15:30 04/21/23 15:46 04/21/23 15:46 Temperature Pulse Rate 61 60 Respiratory Rate 12 Blood Pressure 92/50 L Pulse Oximetry 97 95 Oxygen Delivery Method 04/21/23 15:48 04/21/23 15:48 04/21/23 16:00 Temperature Pulse Rate 61 Respiratory Rate 18 Blood Pressure 101/54 L 104/59 L Pulse Oximetry 96 Oxygen Delivery Method 04/21/23 16:00 04/21/23 16:15 04/21/23 16:15 Temperature Pulse Rate 60 62 Respiratory Rate 13 16 Blood Pressure 99/57 L Pulse Oximetry 95 96 Oxygen Delivery Method 04/21/23 16:30 04/21/23 16:51 04/21/23 16:51 Temperature Pulse Rate 69 65 Respiratory Rate 15 Blood Pressure 121/58 L Pulse Oximetry 97 95 Oxygen Delivery Method 04/21/23 17:00 04/21/23 17:00 04/21/23 17:15 Temperature Pulse Rate 60 Respiratory Rate 12 Blood Pressure 127/59 L 140/66 Pulse Oximetry 96 Oxygen Delivery Method 04/21/23 17:15 04/21/23 17:30 04/21/23 17:30 Temperature Pulse Rate 67 61 Respiratory Rate 16 15 Blood Pressure 123/61 Pulse Oximetry 98 97 Oxygen Delivery Method MDM - SOB/Dyspnea Lab Data 04/21/23 15:00 04/21/23 15:00 Labs: Lab Results 04/21/23 04/21/23 04/21/23 Range/Units 15:00 15:00 15:00 WBC 6.6 (4.5-11.0) X10^3/uL RBC 2.85 L (4.0-5.2) X10^6/uL Hgb 10.0 L (12.0-16.0) g/dL Hct 29.2 L (36-46) % MCV 102.4 H (80-100) fL MCH 34.9 H (26-34) PG MCHC 34.1 (30-36) % RDW 13.7 (11.6-14.8) % Plt Count 335 (150-400) X10^3/uL Neut % (Auto) 72.3 (50-75) % Lymph % (Auto) 14.0 L (25-40) % Wise % (Auto) 12.8 (3-14) % Eos % (Auto) 0.5 L (2-4) % Baso % (Auto) 0.4 (0-2) % Neut # (Auto) 4800 (8220-8476) /uL Lymph # (Auto) 900 L (7250-4293) /uL Wise # (Auto) 800 (0-900) /uL Eos # (Auto) 0 (0-450) /uL Baso # (Auto) 0 (0-100) /uL PT 17.3 H (10.1-12.7) SECONDS INR 1.5 H (0.9-1.3) APTT 86 H* (26-36) SECONDS Sodium 134 L (137-145) mmol/L Potassium 4.1 (3.4-5.1) mmol/L Chloride 97 L (98-107) mmol/L Carbon Dioxide 34 H (22-32) mmol/L BUN 20 H (7-17) mg/dL Creatinine 1.42 H (0.52-1.04) mg/dL Estimated GFR 36 L (>60) mL/min BUN/Creatinine Ratio 14.1 (6-22) Glucose 95 (80-110) mg/dL Calcium 8.8 (8.4-10.2) mg/dL Magnesium 2.5 H (1.6-2.3) mg/dL Total Bilirubin 0.3 (0.2-1.3) mg/dL AST 46 H (14-36) IU/L ALT 28 (<35) IU/L Alkaline Phosphatase 85 (38-126) U/L Total Creatine Kinase 277 H (30-135) U/L Troponin I < 0.012 (0.01-0.034) ng/mL NT-Pro-B Natriuret Pep (<450) pg/mL Total Protein 6.9 (6.3-8.2) g/dL Albumin 4.1 (3.5-5.0) g/dL Globulin 2.8 (1.7-4.1) g/dL Albumin/Globulin Ratio 1.5 (1.0-2.8) Lipase 107 (23-300) U/L 04/21/23 Range/Units 15:00 WBC (4.5-11.0) X10^3/uL RBC (4.0-5.2) X10^6/uL Hgb (12.0-16.0) g/dL Hct (36-46) % MCV (80-100) fL MCH (26-34) PG MCHC (30-36) % RDW (11.6-14.8) % Plt Count (150-400) X10^3/uL Neut % (Auto) (50-75) % Lymph % (Auto) (25-40) % Wise % (Auto) (3-14) % Eos % (Auto) (2-4) % Baso % (Auto) (0-2) % Neut # (Auto) (1942-8273) /uL Lymph # (Auto) (2286-6310) /uL Wise # (Auto) (0-900) /uL Eos # (Auto) (0-450) /uL Baso # (Auto) (0-100) /uL PT (10.1-12.7) SECONDS INR (0.9-1.3) APTT (26-36) SECONDS Sodium (137-145) mmol/L Potassium (3.4-5.1) mmol/L Chloride (98-107) mmol/L Carbon Dioxide (22-32) mmol/L BUN (7-17) mg/dL Creatinine (0.52-1.04) mg/dL Estimated GFR (>60) mL/min BUN/Creatinine Ratio (6-22) Glucose (80-110) mg/dL Calcium (8.4-10.2) mg/dL Magnesium (1.6-2.3) mg/dL Total Bilirubin (0.2-1.3) mg/dL AST (14-36) IU/L ALT (<35) IU/L Alkaline Phosphatase (38-126) U/L Total Creatine Kinase (30-135) U/L Troponin I (0.01-0.034) ng/mL NT-Pro-B Natriuret Pep 2430 H (<450) pg/mL Total Protein (6.3-8.2) g/dL Albumin (3.5-5.0) g/dL Globulin (1.7-4.1) g/dL Albumin/Globulin Ratio (1.0-2.8) Lipase (23-300) U/L Urine Dip Bedside Urine Glucose Negative Bedside Urine Bilirubin - Negative Bedside Urine Ketone - Negative Urine Specific [place] 1.005 Bedside Urine Occult Blood - Negative Bedside Urine pH 6.0 Bedside Urine Protein - Negative Bedside Urine Urobilinogen - Negative Bedside Urine Nitrite - Negative Bedside Urine Leukocytes - Negative Esterase Imaging Data Chest x-ray: Radiologist's Impression: PROCEDURE:? XR CHEST 1V ? INDICATIONS:? chest pain ? TECHNIQUE:? One view of the chest was acquired.? ? COMPARISON:? [facility], , XR CHEST 1V, 06/25/2020, 8:31. ? FINDINGS:? ? Surgical changes and devices:? Left chest wall AICD leads are in the region of right atrium and right ventricle. ? Lungs and pleura:? Lungs are clear.? No pleural effusions or pneumothorax.? ? Mediastinum:? Mediastinal contours appear normal.? Heart size is normal.? ? Bones and chest wall:? No suspicious bony lesions.? Overlying soft tissues appear unremarkable.? ? IMPRESSION:? No acute cardiopulmonary pathology. ? ? Dictated by: Og oCdy M.D. on 04/21/2023 at 15:31 ?? ECG Data Interpretation: Atrial fibrillation rate [address] changes MDM Narrative Medical decision making narrative: Patient 88-year-old female history of atrial fibrillation on diuretics presenting today with what she thinks is fluid overload. She has no hypoxia or respiratory distress. Lower extremities show no evidence of edema however she feels like her middle is a little bit swollen. BNP is elevated at 2430 previously it was 2290 in 2021. She has a anemia but it is stable. Blood pressure is stable and within normal limits. She is given 1 dose of Lasix here in the ED. Time not sure she is taking medications as directed feel uncomfortable giving her further instructions for increasing Lasix which I am not convinced that she needs. At this time we did talk about the spironolactone if her blood pressure is less than 110 and she should hold the spironolactone continue taking her blood pressure regularly. At this time she does not meet any admission criteria. No further workup is indicated. Discharge Plan Departure Patient Disposition: Home Clinical Impression: Congestive heart failure, Atrial fibrillation Instructions: Atrial Fibrillation Activity Restrictions/Additional Instructions: *You have been diagnosed with congestive heart failure, atrial fibrillation *What to do: At this time take her blood pressure every morning. If your blood pressure is less than 110 do not take spironolactone. Please talk to your ballpoint pen cartridge tester in regards to your water pills. At this time please take as previously instructed *Continue to take medications as directed Currently no changes *Follow up with your primary care provider in 2-3 days or call [phone] *Return to ER if you should have increased shortness of breath increased swelling or any new, worsening or concerning symptoms Prescriptions: No Action metoprolol succinate 25 mg tablet extended release 24 hr 25 mg PO DAILY sacubitril-valsartan 24-26 mg tablet 1 tab PO BID Patient Comments: Only using QHS, states it gives her a headache and causes imbalance spironolactone 25 mg tablet 12.5 mg PO DAILY magnesium oxide 400 MG capsule 500 mg PO DAILY Qty: 0 cholecalciferol (vitamin D3) [Vitamin D3] 1,000 unit tablet 2,000 unit PO QDAY Qty: 0 diltiazem HCl 120 mg capsule,extended release 24hr 120 mg PO QDAY Qty: 90 3RF Pradaxa 150 mg capsule 150 mg PO BID Qty: 180 3RF omeprazole 20 mg capsule,delayed release(DR/EC) 20 mg PO DAILY Qty: 90 1RF (DME) Disabled Parking See Rx Instructions .ROUTE .MEDSUPPLY Qty: 1 0RF Rx Instructions: I find this patient to be medically disabled and qualified for Disabled Parking as indicated, and signed, on the Accompanying Disabled Parking Application for Individuals levothyroxine 25 mcg tablet See Rx Instructions .ROUTE .COMPLEX Qty: 90 3RF Hold Instructions: trying Naturthroid Dose Instruction: Take 1 tablet (0.025 mg) by mouth daily Rx Instructions: Take 1 tablet (0.025 mg) by mouth daily atorvastatin 20 mg tablet See Rx Instructions .ROUTE .COMPLEX Qty: 90 1RF Dose Instruction: Take 1 tablet (20 mg) by mouth at bedtime Rx Instructions: Take 1 tablet (20 mg) by mouth at bedtime gabapentin 600 mg tablet See Rx Instructions .ROUTE .COMPLEX Qty: 450 1RF Dose Instruction: Take 2 tablets (1,200 mg) by mouth in the AM, 1 tablet (600 mg) at noon, AND 2 tablets (1,200 mg) in the PM for shingles nerve pain. Rx Instructions: Take 2 tablets (1,200 mg) by mouth in the AM, 1 tablet (600 mg) at noon, AND 2 tablets (1,200 mg) in the PM for shingles nerve pain. escitalopram oxalate 5 mg tablet See Rx Instructions .ROUTE .COMPLEX Qty: 90 3RF Dose Instruction: Take 1 tablet (5 mg) by mouth daily Rx Instructions: Take 1 tablet (5 mg) by mouth daily tramadol 50 mg tablet 50 mg PO BID PRN (Reason: pain) Qty: 60 0RF furosemide 40 mg tablet 20 mg PO QDAY beta carotene 25,000 unit Capsule 25,000 unit PO DAILY Rx Instructions: administer with a meal niacinamide 500 mg Tablet 500 mg PO DAILY Jakafi 20 mg Tablet 10 mg PO BID Qty: 30 5RF Rx Instructions: take 0.5 tablet (10mg) by mouth 2 times daily biotin 10,000 mcg Capsule 10,000 mcg PO DAILY melatonin 5 mg Tablet 5 mg PO BEDTIME alpha lipoic acid 600 mg Tablet 600 mg PO BID potassium chloride [Klor-Con M20] 20 mEq Tablet,Er Particles/Crystals 20 meq PO DAILYCC Qty: 30 0RF Referrals: Jyoti Mcrae MD [Primary Care Provider] - Stand Alone Forms: Patient Portal/API
[2023-04-21] MEDS: FUROSEMIDE 40 MG/4 ML VIAL IV (17:19)
== END 2023-04-21 18:36 | disposition home or self-care (01) ==
PROVIDERS: Emergency Provider Emergency Medicine; PCP Family Medicine
DX: I50.9 Heart failure, unspecified (principal); I48.91 Unspecified atrial fibrillation; R07.9 Chest pain, unspecified; Z79.01 Long term (current) use of anticoagulants
CPT/HCPCS: 36415; 71045; 80053; 81003; 82550; 83690; 83735; 83880; 84484; 85025; 85610; 85730; 93005; 93010; 96374; 99284; J1940

== ENCOUNTER → 2023-04-28 09:29 | Outpatient (CLI) | payer OTHER, SELFPAY ==
[2022-04-07 09:59] VITALS: BMI 23.1
[2023-04-28 10:41] LABS: BUN Creatinine Ratio 18.2 (6-22); Blood Urea Nitrogen 25 mg/dL (7-17); Calcium 8.8 mg/dL (8.4-10.2); Carbon Dioxide 31 mmol/L (22-32); Chloride 93 mmol/L (98-107); Estimated Glomerular Filt Rate 38 mL/min (>60); Glucose 79 mg/dL (80-110); HEMOLYSIS < 15 (0-50); Potassium 3.8 mmol/L (3.4-5.1); Sodium 130 mmol/L (137-145)
== END ==
PROVIDERS: PCP Family Medicine; Referring Provider Internal Medicine Cardiovascular Disease; Visit Provider Internal Medicine Cardiovascular Disease
DX: I50.22 Chronic systolic (congestive) heart failure (principal)
CPT/HCPCS: 36415; 80048

== ENCOUNTER 2023-05-05 10:54 | Emergency (ER) | payer OTHER, SELFPAY ==
[2022-04-07 09:59] VITALS: BMI 23.1
[2023-05-05 11:00] VITALS: BP 136/62; PULSE 60; RESP 14; TEMP 36.5; O2SAT 99; BMI 23.0
--- NOTE | 2023-05-05 11:03 | DI.RAD.S_ITS ---
PROCEDURE: XR HIP W PEL IF DONE RT 2V INDICATIONS: R hip pain. [place] a crunch TECHNIQUE: AP pelvis with lateral view(s) of the right hip(s). COMPARISON: [facility], CR, XR HIP W PEL IF DONE LT 2V, 01/22/2021, 11:30. [facility], CR, XR PELVIS WITH LATERAL HIP LEFT, 04/27/2022, 10:39. FINDINGS: Bones: No fractures or dislocations. Pelvic ring appears intact. No suspicious bony lesions. Left hip arthroplasty. Hardware is intact without hardware fracture or periprosthetic lucency to suggest loosening. Moderate right hip arthritic change. Soft tissues: The visualized bowel gas pattern is normal. No suspicious soft tissue calcifications. IMPRESSION: No visualized acute fracture or dislocation. However, if clinical concern and/or pain persist, short interval imaging followup in 7-10 days is recommended, as occult injury cannot be definitively excluded. Dictated by: Mildred Campo M.D. on 05/05/2023 at 11:55 Approved by: Mildred Campo M.D. on 05/05/2023 at 11:56
--- NOTE | 2023-05-05 11:24 | ED.LOWEXIN ---
HPI - Extremity Injury (Lower) General Chief Complaint: Extremity Injury, Lower Stated Complaint: DR bianchi RT hip is hurting Time Seen by Provider: 05/05/23 11:13 Source: patient Mode of arrival: Ambulatory History of Present Illness HPI Narrative: 88-year-old female with past medical history atrial fibrillation, CHF, GERD, hypertension, CKD presents to the ED with 2 days of right-sided hip pain. Patient states that she felt a crunching noise when she sat on the toilet 2 days ago, since then has experienced right-sided hip pain. Patient has a left hip that has been replaced. Patient denies numbness, tingling, weakness. Patient is able to bear weight and walk with her cane. No other injuries. Related Data Home Medications Medication Instructions Recorded Confirmed magnesium oxide 500 mg PO DAILY ##0 01/05/18 04/13/23 cholecalciferol (vitamin D3) 25 2,000 unit PO QDAY #0 tabs 06/19/18 04/13/23 mcg (1,000 unit) tablet (Vitamin D3) furosemide 40 mg tablet 20 mg PO QDAY water retention 11/21/19 04/13/23 alpha lipoic acid 600 mg tablet 600 mg PO BID 06/21/20 04/13/23 biotin 10,000 mcg capsule 10,000 mcg PO DAILY 06/21/20 04/13/23 melatonin 5 mg tablet 5 mg PO BEDTIME 06/21/20 04/13/23 beta carotene 7,500 mcg (25,000 25,000 unit PO DAILY 07/19/22 04/13/23 unit) capsule niacinamide 500 mg tablet 500 mg PO DAILY 07/19/22 04/13/23 metoprolol succinate 25 mg 25 mg PO DAILY 04/13/23 04/13/23 tablet,extended release 24 hr sacubitril 24 mg-valsartan 26 mg 1 tab PO BID 04/13/23 04/13/23 tablet spironolactone 25 mg tablet 12.5 mg PO DAILY 04/13/23 04/13/23 Previous Rx's Medication Instructions Recorded diltiazem HCl 120 mg 120 mg PO QDAY #90 tabs 01/16/19 capsule,extended release 24 hr dabigatran etexilate 150 mg 150 mg PO BID #180 caps 03/14/19 capsule (Pradaxa) omeprazole 20 mg capsule,delayed 20 mg PO DAILY #90 caps 12/05/19 release potassium chloride 20 mEq 20 meq PO DAILYCC #30 tabs 06/26/20 tablet,extended release(part/cryst) (Klor-Con M) ruxolitinib 20 mg tablet (Jakafi) 10 mg PO BID #30 tabs 12/13/22 Disabled Parking #1 ea 12/22/22 levothyroxine 25 mcg tablet See Rx Instructions .Route 12/23/22 .COMPLEX #90 tabs atorvastatin 20 mg tablet See Rx Instructions .Route 01/26/23 .COMPLEX #90 tabs gabapentin 600 mg tablet See Rx Instructions .Route 03/01/23 .COMPLEX #450 tabs escitalopram oxalate 5 mg tablet See Rx Instructions .Route 03/08/23 .COMPLEX #90 tabs tramadol 50 mg tablet 50 mg PO BID PRN pain #60 tabs 04/08/23 Allergies Allergy/AdvReac Type Severity Reaction Status Date / Time adhesive [ADHESIVE] Allergy Mild SENSITIVE Verified 05/05/23 11:03 hydroxyurea [HYDROXYUREA] Allergy Mild ITCHY Verified 05/05/23 11:03 hydroxyzine [HYDROXYZINE] Allergy Mild ITCHY Verified 05/05/23 11:03 codeine [CODEINE] Allergy Unknown dizzyness/f Verified 05/05/23 11:03 ainting Review of Systems Review of Systems ROS Unobtainable: All systems reviewed & are unremarkable except as noted in HPI and below Constitutional Constitutional: Denies chills, Denies fatigue, Denies fever(s), Denies frequent falls, Denies lethargy and Denies weakness Eyes Eyes: Denies change in vision, Denies eye discharge, Denies irritation and Denies loss of vision ENT Ears, Nose, Mouth, and Throat: Denies change in voice, Denies dizziness, Denies neck pain, Denies sore throat and Denies throat swelling Cardiovascular Cardiovascular: Denies chest pain, Denies irregular heart rhythm, Denies lightheadedness, Denies palpitations, Denies dyspnea, Denies dyspnea on exertion and Denies orthopnea Respiratory Respiratory: Denies cough, Denies dyspnea, Denies dyspnea on exertion and Denies wheezing Gastrointestinal Gastrointestinal: Denies abdominal pain, Denies change in bowel habits, Denies diarrhea, Denies nausea and Denies vomiting Genitourinary Genitourinary: Denies hematuria, Denies flank pain, Denies urinary incontinence and Denies urinary urgency Musculoskeletal Musculoskeletal: Denies back pain, Denies muscle weakness, Denies neck pain, Denies numbness and Denies tingling Comments: R hip pain Integumentary/Breasts Skin/Breast: Denies pruritus, Denies erythema, Denies rash and Denies wounds Neurologic Neurologic: Denies behavioral changes, Denies confusion, Denies dizziness, Denies frequent falls, Denies loss of vision, Denies numbness, Denies tingling and Denies weakness Psychiatric Psychiatric: Denies anxiety, Denies behavioral changes, Denies confusion, Denies depression, Denies homicidal ideation and Denies suicidal ideation Endocrine Endocrine: Denies fatigue, Denies flushing and Denies palpitations Hematologic/Lymphatic Hematologic/Lymphatic: Denies easy bruising Allergic/Immunologic Allergic/Immunologic: Denies urticaria, Denies throat swelling and Denies wheezing Patient History Medical History Acquired hypothyroidism (02/01/13) Arthralgia Cardiac arrhythmia Chronic anticoagulation Chronic atrial fibrillation Colorectal cancer, stage I (~2007) Cutaneous lupus erythematosus (~2002) Cyst of thyroid Disrupted sleep-wake cycle Disturbance in sleep behavior (04/24/14) DJD (degenerative joint disease) Essential hypertension Facet arthropathy, lumbosacral Fracture of distal fibula GERD (gastroesophageal reflux disease) Idiopathic peripheral autonomic neuropathy, unspecified 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) Low back pain Lumbosacral spondylosis with radiculopathy Malignant neoplasm of colon, unspecified (~2007) 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) Myelofibrosis Oral lichen planus (~2009) Peripheral neuropathy (~2012) Polycythemia vera Polycythemia vera (~2006) Postherpetic neuralgia (~2012) Sciatica Spondylosis without myelopathy or radiculopathy, lumbosacral region Stage 3 chronic kidney disease (12/04/14) Surgical History History of bone marrow biopsy (~2013) History of local excision of skin lesion History of thyroid surgery Presence of cardiac pacemaker (~2005) S/P medial meniscectomy of right knee (~1999) Status post colectomy (~2007) Status post hysterectomy (~1974) Social History marital status: household members: spouse Smoking Status: Never smoker alcohol intake: current substance use type: does not use well-balanced diet: daily or most days Smoking Status: Never smoker alcohol intake frequency: 0-2 drinks per day Substance Use Type: does not use Exam Narrative Exam Narrative: Const General:?cooperative, healthy appearing and comfortable HENMO Head:?normal to inspection Ears:?hearing grossly normal bilaterally Nose:?external nose normal Face and sinus:?normal facial exam and sinuses nontender Mouth:?oral mucosae normal Throat:?posterior oropharynx normal Eyes General:?appearance normal, both eyes and all related structures Neck Neck:?normal visual inspection and no lymphadenopathy noted Resp Effort & Inspection:?normal respiratory effort Auscultation:?clear to auscultation bilaterally Cardio Rate:?regular rate Rhythm:?regular rhythm Musculoskeletal There is mild tenderness to palpation of the right hip. No swelling, bruising, deformities. Patient is able to bear weight and walk with her cane. There is full range of motion. Strength and sensation is intact. Patient is neurovascularly intact. Neuro General:?patient alert, patient awake and patient oriented x3 Initial Vital Signs Initial Vital Signs: Vital Signs Temperature 97.7 F 05/05/23 11:00 Pulse Rate 60 05/05/23 11:00 Respiratory Rate 14 05/05/23 11:00 Blood Pressure 136/62 05/05/23 11:00 Pulse Oximetry 99 05/05/23 11:00 Oxygen Delivery Method Room Air 05/05/23 11:00 Course Orders Ordered: Discontinued Medications Lidocaine (Lidocaine Patch 1 Each Adh..Patch) 1 each TOP NOW ONE Stop: 05/05/23 12:12 Last Admin: 05/05/23 12:17 Dose: 1 each Documented By: MIGUEL A Vital Signs Vital signs: Vital Signs - 8 hr 05/05/23 11:00 Temperature 97.7 F Pulse Rate 60 Respiratory Rate 14 Blood Pressure 136/62 Pulse Oximetry 99 Oxygen Delivery Method Room Air MDM - Extremity Injury (Lower) MDM Narrative Medical decision making narrative: 88-year-old female with past medical history atrial fibrillation, CHF, GERD, hypertension, CKD presents to the ED with 2 days of right-sided hip pain. X-ray obtained to rule out fracture/dislocation. X-ray without acute findings. Patient's symptoms likely due to a musculoskeletal sprain/strain. Patient states that she can not take Tylenol or ibuprofen. Applied a lidocaine patch for comfort. Recommend follow-up with PCP as soon as possible. ED return precautions were discussed with patient. Patient verbalized understanding. Medical records reviewed: Yes Discharge Plan Departure Patient Disposition: Home Clinical Impression: Acute hip pain Instructions: DI for Hip Pain Activity Restrictions/Additional Instructions: You were evaluated in the ED today for right-sided hip pain. Your x-ray did not show any fractures or dislocations. Your symptoms are likely due to a musculoskeletal sprain/strain. You may apply lidocaine patches for relief. Please follow-up with your PCP as soon as possible. Return to the ED if you have worsening symptoms, numbness, tingling, weakness. Prescriptions: No Action metoprolol succinate 25 mg tablet extended release 24 hr 25 mg PO DAILY sacubitril-valsartan 24-26 mg tablet 1 tab PO BID Patient Comments: Only using QHS, states it gives her a headache and causes imbalance spironolactone 25 mg tablet 12.5 mg PO DAILY magnesium oxide 400 MG capsule 500 mg PO DAILY Qty: 0 cholecalciferol (vitamin D3) [Vitamin D3] 1,000 unit tablet 2,000 unit PO QDAY Qty: 0 diltiazem HCl 120 mg capsule,extended release 24hr 120 mg PO QDAY Qty: 90 3RF Pradaxa 150 mg capsule 150 mg PO BID Qty: 180 3RF omeprazole 20 mg capsule,delayed release(DR/EC) 20 mg PO DAILY Qty: 90 1RF (DME) Disabled Parking See Rx Instructions .ROUTE .MEDSUPPLY Qty: 1 0RF Rx Instructions: I find this patient to be medically disabled and qualified for Disabled Parking as indicated, and signed, on the Accompanying Disabled Parking Application for Individuals levothyroxine 25 mcg tablet See Rx Instructions .ROUTE .COMPLEX Qty: 90 3RF Hold Instructions: trying Naturthroid Dose Instruction: Take 1 tablet (0.025 mg) by mouth daily Rx Instructions: Take 1 tablet (0.025 mg) by mouth daily atorvastatin 20 mg tablet See Rx Instructions .ROUTE .COMPLEX Qty: 90 1RF Dose Instruction: Take 1 tablet (20 mg) by mouth at bedtime Rx Instructions: Take 1 tablet (20 mg) by mouth at bedtime gabapentin 600 mg tablet See Rx Instructions .ROUTE .COMPLEX Qty: 450 1RF Dose Instruction: Take 2 tablets (1,200 mg) by mouth in the AM, 1 tablet (600 mg) at noon, AND 2 tablets (1,200 mg) in the PM for shingles nerve pain. Rx Instructions: Take 2 tablets (1,200 mg) by mouth in the AM, 1 tablet (600 mg) at noon, AND 2 tablets (1,200 mg) in the PM for shingles nerve pain. escitalopram oxalate 5 mg tablet See Rx Instructions .ROUTE .COMPLEX Qty: 90 3RF Dose Instruction: Take 1 tablet (5 mg) by mouth daily Rx Instructions: Take 1 tablet (5 mg) by mouth daily tramadol 50 mg tablet 50 mg PO BID PRN (Reason: pain) Qty: 60 0RF furosemide 40 mg tablet 20 mg PO QDAY beta carotene 25,000 unit Capsule 25,000 unit PO DAILY Rx Instructions: administer with a meal niacinamide 500 mg Tablet 500 mg PO DAILY Jakafi 20 mg Tablet 10 mg PO BID Qty: 30 5RF Rx Instructions: take 0.5 tablet (10mg) by mouth 2 times daily biotin 10,000 mcg Capsule 10,000 mcg PO DAILY melatonin 5 mg Tablet 5 mg PO BEDTIME alpha lipoic acid 600 mg Tablet 600 mg PO BID potassium chloride [Klor-Con M20] 20 mEq Tablet,Er Particles/Crystals 20 meq PO DAILYCC Qty: 30 0RF Referrals: Jyoti Mcrae MD [Primary Care Provider] - Stand Alone Forms: Patient Portal/API
[2023-05-05] MEDS: LIDOCAINE PATCH 1 EACH ADH..PATCH TOP (12:17)
--- NOTE | 2023-05-05 12:19 | PC.NURSE ---
First time meeting pt at time of D/C refer to providers note for assessment
== END 2023-05-05 12:19 | disposition home or self-care (01) ==
PROVIDERS: Emergency Provider Student in an Organized Health Care Education/Training Program; PCP Family Medicine
DX: M25.551 Pain in right hip (principal)
CPT/HCPCS: 73502; 99282; 99283

== ENCOUNTER → 2023-05-09 12:55 | Outpatient (CLI) | payer OTHER, SELFPAY ==
[2022-04-07 09:59] VITALS: BMI 23.1
[2023-05-09 14:56] LABS: BUN Creatinine Ratio 23.4 (6-22); Blood Urea Nitrogen 33 mg/dL (7-17); Calcium 9.2 mg/dL (8.4-10.2); Carbon Dioxide 28 mmol/L (22-32); Chloride 98 mmol/L (98-107); Estimated Glomerular Filt Rate 36 mL/min (>60); Glucose 87 mg/dL (80-110); HEMOLYSIS < 15 (0-50); Potassium 4.3 mmol/L (3.4-5.1); Sodium 134 mmol/L (137-145)
[2023-05-09 15:13] LABS: Digoxin < 0.4 ng/mL (0.8-2.0)
[2023-05-09 15:45] LABS: Vitamin B12 > 1000 pg/mL (239-931)
[2023-05-09 21:43] LABS: Vitamin D 25 Hydroxy (D3) 40.8 ng/mL (30.0-100.0)
== END ==
PROVIDERS: Physician Assistant; PCP Family Medicine; Referring Provider Internal Medicine Cardiovascular Disease; Visit Provider Internal Medicine Cardiovascular Disease
DX: I50.22 Chronic systolic (congestive) heart failure (principal); G90.09 Other idiopathic peripheral autonomic neuropathy; S82.839A Other fracture of upper and lower end of unspecified fibula, initial encounter for closed fracture; N18.30 Chronic kidney disease, stage 3 unspecified
CPT/HCPCS: 36415; 80048; 80162; 82306; 82607

== ENCOUNTER 2023-06-06 10:59 | Emergency (ER) | payer OTHER, SELFPAY ==
[2022-04-07 09:59] VITALS: BMI 23.1
== END 2023-06-06 11:54 | disposition left against medical advice (07) ==
PROVIDERS: Emergency Provider Emergency Medicine; PCP Family Medicine

== ENCOUNTER → 2023-06-24 12:24 | Outpatient (CLI) | payer OTHER, SELFPAY ==
[2022-04-07 09:59] VITALS: BMI 23.1
[2023-06-24 14:14] LABS: BUN Creatinine Ratio 26.7 (6-22); Blood Urea Nitrogen 39 mg/dL (7-17); Calcium 8.7 mg/dL (8.4-10.2); Carbon Dioxide 23 mmol/L (22-32); Chloride 105 mmol/L (98-107); Estimated Glomerular Filt Rate 35 mL/min (>60); Glucose 76 mg/dL (80-110); HEMOLYSIS 22 (0-50); Potassium 4.4 mmol/L (3.4-5.1); Sodium 136 mmol/L (137-145)
[2023-06-24 14:18] LABS: Digoxin 0.7 ng/mL (0.8-2.0)
[2023-06-24 14:23] LABS: NT-proBNP (BNP-Adult 18+) 4480 pg/mL (<450)
== END ==
PROVIDERS: PCP Family Medicine; Referring Provider Internal Medicine Cardiovascular Disease; Visit Provider Internal Medicine Cardiovascular Disease
DX: I50.22 Chronic systolic (congestive) heart failure (principal)
CPT/HCPCS: 36415; 80048; 80162; 83880

== ENCOUNTER 2023-07-14 15:31 | Emergency (ER) | payer OTHER, SELFPAY ==
[2022-04-07 09:59] VITALS: BMI 23.1
[2023-07-14] VITALS (15 sets, daily range): BP systolic 120–151; BP diastolic 58–97; PULSE 60–80; RESP 13–32; TEMP 36.6; O2SAT 79–99
--- NOTE | 2023-07-14 15:44 | DI.RAD.S_ITS ---
PROCEDURE: XR CHEST 1V INDICATIONS: altered mental status TECHNIQUE: One view of the chest was acquired. COMPARISON: [facility], CR, XR CHEST 1V, 06/23/2020, 10:48. [facility], CR, XR CHEST 1V, 04/21/2023, 14:45. FINDINGS: Surgical changes and devices: A pacer device is seen. The leads are seen in stable positions. Lungs and pleura: Lungs are clear. No pneumothorax. There is minimal blunting of the left costophrenic angle. Mediastinum: Mediastinal contours appear normal. Heart size is normal. Bones and chest wall: No suspicious bony lesions. Age-appropriate bony degenerative changes are seen. Mild levoconvex scoliotic curvature is noted. Overlying soft tissues appear unremarkable. IMPRESSION: Minimal blunting of the left costophrenic angle, which may reflect a small pleural effusion. Differential diagnosis includes atelectasis and minimal infiltrate, however. Dictated by: Jose Medina M.D. on 07/14/2023 at 15:20 Approved by: Jose Medina M.D. on 07/14/2023 at 15:22
--- NOTE | 2023-07-14 15:45 | DI.CT.S_ITS ---
PROCEDURE: CT HEAD/BRAIN WO CON INDICATIONS: confusion TECHNIQUE: Noncontrast 4.5 mm thick angled axial sections acquired from the foramen magnum to the vertex, with coronal and sagittal reformats. For radiation dose reduction, the following was used: automated exposure control, adjustment of mA and/or kV according to patient size. COMPARISON: [facility], CT, CT CERVICAL SPINE WO CON, 07/14/2023, 15:53. [facility], CT, HEAD WITHOUT CONTRAST, 11/09/2011, 21:20. FINDINGS: Image quality: Mild streak artifact can be seen through the skull base. CSF spaces: Basal cisterns are patent. No extra-axial fluid collections. The ventricles are symmetric in size and shape. Brain: No intracranial bleeds or masses. There is cerebral volume loss for age, with resultant ventricular and sulcal prominence. There are periventricular and deep white matter chronic small vessel ischemic changes. There is intracranial internal carotid artery atherosclerosis. Skull and face: Calvarium and visualized facial bones appear intact, without suspicious lesions. Sinuses: Visualized sinuses and mastoids are clear. IMPRESSION: No acute intracranial process is seen. Note is made of age-appropriate brain parenchymal volume loss and chronic small vessel ischemic changes. Dictated by: Jose Medina M.D. on 07/14/2023 at 15:19 Approved by: Jose Medina M.D. on 07/14/2023 at 15:20
--- NOTE | 2023-07-14 15:51 | DI.CT.S_ITS ---
PROCEDURE: CT CERVICAL SPINE WO CON INDICATIONS: fall TECHNIQUE: Noncontrast 3 mm thick sections acquired from the skull base to the T4 level. Sagittal and coronal reformats were then constructed. For radiation dose reduction, the following was used: automated exposure control, adjustment of mA and/or kV according to patient size. COMPARISON: [facility], CT, SOFT TISSUE NECK W CONTRAST, 01/23/2010, 14:03. [facility], CT, CT HEAD/BRAIN WO CON, 07/14/2023, 15:53. [facility], CR, XR CHEST 1V, 07/14/2023, 15:41. FINDINGS: Image quality: Excellent. Bones: No fractures or dislocations. Visualized superior ribs are intact. Focal degenerative change is seen involving the C1-C2 interface anteriorly. There is at least moderate disc space narrowing seen at C3-C4, C4-C5, C5-C6, and C6-C7. Posteriorly directed endplate osteophytes are seen, which are worst at C5-C6. Soft tissues: Prevertebral soft tissues are normal in thickness. No paravertebral hematomas. No apical pneumothoraces. A left-sided pacer device is partially seen. The previously seen right-sided neck lesion is no longer definitely seen. IMPRESSION: Negative for acute fracture. Multiple levels of significant cervical spine degenerative change can be seen, which are worst at C5-C6. Dictated by: Jose Medina M.D. on 07/14/2023 at 15:14 Approved by: Jose Medina M.D. on 07/14/2023 at 15:19
[2023-07-14 16:19] LABS: Add Manual Diff / Slide Review NO; Basophils Absolute Auto 0 /uL (0-100); Basophils Percent Auto 0.4 % (0-2); Eosinophils Absolute Auto 0 /uL (0-450); Eosinophils Percent Auto 0.5 % (2-4); Hematocrit 29.8 % (36-46); Hemoglobin 10.1 g/dL (12.0-16.0); Lymphocytes Absolute Auto 600 /uL (1100-4500); Lymphocytes Percent Auto 6.1 % (25-40); Mean Corpuscular HGB Conc 33.7 % (30-36); Mean Corpuscular Hemoglobin 34.3 PG (26-34); Mean Corpuscular Volume 101.8 fL (80-100); Monocytes Absolute Auto 900 /uL (0-900); Monocytes Percent Auto 9.3 % (3-14); Neutrophils Absolute Auto 8100 /uL (1500-7000); Neutrophils Percent Auto 83.7 % (50-75); Platelet Count 345 X10^3/uL (150-400); Red Blood Cell Count 2.93 X10^6/uL (4.0-5.2); Red Cell Distribution Width 13.9 % (11.6-14.8); White Blood Cell Count 9.6 X10^3/uL (4.5-11.0)
[2023-07-14 16:32] LABS: Alanine Aminotransferase 21 IU/L (<35); Albumin 4.2 g/dL (3.5-5.0); Albumin Globulin Ratio 1.2 (1.0-2.8); Alkaline Phosphatase 82 U/L (38-126); Aspartate Aminotransferase 32 IU/L (14-36); BUN Creatinine Ratio 18.8 (6-22); Bilirubin Total 0.6 mg/dL (0.2-1.3); Blood Urea Nitrogen 25 mg/dL (7-17); Calcium 9.1 mg/dL (8.4-10.2); Carbon Dioxide 29 mmol/L (22-32); Chloride 98 mmol/L (98-107); Estimated Glomerular Filt Rate 39 mL/min (>60); Globulin 3.4 g/dL (1.7-4.1); Glucose 120 mg/dL (80-110); HEMOLYSIS < 15 (0-50); Potassium 3.6 mmol/L (3.4-5.1); Sodium 134 mmol/L (137-145); Total Protein 7.6 g/dL (6.3-8.2)
[2023-07-14 17:13] LABS: UR Morphine/Opiate cutoff 300 Negative (Negative); Ur Creatinine Normal (Normal); Ur Specific Gravity Normal (Normal); Urine Amphetamines Negative (Negative); Urine Barbiturates Negative (Negative); Urine Benzodiazepines Negative (Negative); Urine Cocaine Negative (Negative); Urine MDMA Negative (Negative); Urine Methadone Negative (Negative); Urine Methamphetamines Negative (Negative); Urine Oxycodone Negative (Negative); Urine Phencyclidine Negative (Negative); Urine Tetrahydrocannabinol Negative (Negative); Urine Tricyclic Antidepressant Negative (Negative); Urine pH Normal (Normal)
[2023-07-14 17:28] LABS: Appearance Urine UA CLEAR; Bilirubin Urine UA NEGATIVE (NEGATIVE); Color Urine UA YELLOW; Glucose Urine UA 1+ g/dL (Negative); Ketones Urine UA NEGATIVE (NEGATIVE); Leukocyte Esterase Urine UA NEGATIVE (NEGATIVE); Nitrite Urine UA NEGATIVE (Negative); Occult Blood Urine UA NEGATIVE (Negative); Protein Urine UA TRACE (Negative); Urobilinogen Urine UA 0.2 E.U./dL (0.2)
--- NOTE | 2023-07-14 17:45 | DI.CT.S_ITS ---
PROCEDURE: CT ANGIO HEAD AND NECK INDICATIONS: Altered mental status/expressive face TECHNIQUE: After the administration of intravenous contrast, 1 mm thick sections acquired from the aortic arch through the [place] of [place]. 3-dimensional [id number] (MIP) and/or volume rendering reformats were acquired of the central intracranial vasculature and neck separately. For radiation dose reduction, the following was used: automated exposure control, adjustment of mA and/or kV according to patient size. COMPARISON: None. FINDINGS: Image quality: Diagnostic. BRAIN: Please refer to separately dictated CT of the head. HEAD CT ANGIOGRAPHY: Anterior circulation: Intracranial internal carotid arteries are normal in size and flow. Mild atherosclerotic vascular calcifications. The flow within the paired anterior cerebral arteries is normal and symmetric. The flow within the middle cerebral arteries is normal and symmetric. The anterior communicating artery is seen. No aneurysms are seen. Posterior circulation: Visualized portions of the vertebral arteries demonstrate normal caliber, and join to form a normal appearing basilar artery. origin of the right [employer]. Flow within the posterior cerebral arteries is normal and symmetric. No aneurysms are seen. NECK CT ANGIOGRAPHY: Carotid system: The great vessels demonstrate a conventional anatomy as they arise from the aortic arch. The origins of the common carotid arteries appear patent. The common carotid arteries demonstrate normal caliber and courses. The bifurcation regions are both widely patent. The internal carotid arteries demonstrate normal calibers and courses. Posterior circulation: The origins of the vertebral arteries both appear widely patent. The more superior extracranial portions of both vertebral arteries also demonstrate normal courses and calibers. They join to form a normal appearing basilar artery. Soft tissues: Visualized neck soft tissues demonstrate no suspicious abnormalities. Bilateral dependent atelectasis. Left chest wall pacemaker. Bones: No suspicious bony lesions. Visualized cervical spine appears normally aligned. Degenerative changes of the spine and decreased osseous mineralization. IMPRESSION: The arteries of the head and neck are patent without hemodynamically significant stenosis or large vessel occlusion. Any quantitative measurements of stenosis were performed using NASCET criteria. Dictated by: Tristen Mobley M.D. on 07/14/2023 at 19:08 Approved by: Tristen Mobley M.D. on 07/14/2023 at 19:15
[2023-07-14 17:47] LABS: pH Urine UA 5.5 (4.5-8.0)
--- NOTE | 2023-07-14 17:47 | ED_ITS ---
HPI - Altered Mental Status <Glenn Coates MD - Last Filed: 07/29/23 09:04> General Chief Complaint: Altered Mental Status Stated Complaint: Confusion Time Seen by Provider: 07/14/23 16:47 Source: patient Mode of arrival: EMS History of Present Illness HPI narrative: Patient here for expressive aphasia. Ongoing for the past week. Patient has had trouble coming up with words when she is talking. She also had trouble today with doing her medication pill box where she could not figure out how to place medication into boxes for herself and . This is something she does routinely in very quickly. No slurred speech or facial droop. No limb weakness or numbness or tingling. No prior history of heart attack strokes or diabetes. Patient in no distress at this time. Fast exam is negative. She did have a mechanical fall today when she was leaning over to crab picker something. No loss of consciousness. Denies any recent fever chills cough cold congestion or urinary complaints. Related Data Home Medications Medication Instructions Recorded Confirmed magnesium oxide 500 mg PO DAILY ##0 01/05/18 07/15/23 cholecalciferol (vitamin D3) 25 2,000 unit PO QDAY #0 tabs 06/19/18 07/15/23 mcg (1,000 unit) tablet (Vitamin D3) alpha lipoic acid 600 mg tablet 600 mg PO BID 06/21/20 07/15/23 biotin 10,000 mcg capsule 10,000 mcg PO DAILY 06/21/20 07/15/23 beta carotene 7,500 mcg (25,000 25,000 unit PO DAILY 07/19/22 07/15/23 unit) capsule niacinamide 500 mg tablet 500 mg PO DAILY 07/19/22 07/15/23 metoprolol succinate 25 mg 25 mg PO DAILY 04/13/23 07/15/23 tablet,extended release 24 hr digoxin 125 mcg (0.125 mg) tablet 125 mcg PO .EVERY OTHER DAY 05/17/23 07/15/23 losartan 25 mg tablet 12.5 mg PO .PM 05/17/23 07/15/23 spironolactone 25 mg tablet 12.5 mg PO DAILY PRN 05/17/23 07/15/23 Previous Rx's Medication Instructions Recorded diltiazem HCl 120 mg 120 mg PO QDAY #90 tabs 03/26/19 capsule,extended release 24 hr dabigatran etexilate 150 mg 150 mg PO BID #180 caps 03/14/19 capsule (Pradaxa) ruxolitinib 20 mg tablet (Jakafi) 10 mg (1/2 x 20 mg) PO BID #30 tabs 12/13/22 Disabled Parking #1 ea 12/22/22 levothyroxine 25 mcg tablet See Rx Instructions .Route 12/23/22 .COMPLEX #90 tabs gabapentin 600 mg tablet See Rx Instructions .Route 03/01/23 .COMPLEX #450 tabs escitalopram oxalate 5 mg tablet See Rx Instructions .Route 03/08/23 .COMPLEX #90 tabs omeprazole 20 mg capsule,delayed 20 mg PO DAILY #30 caps 06/08/23 release tramadol 50 mg tablet 50 mg PO BID PRN pain #60 tabs 07/08/23 furosemide 20 mg tablet 20 mg PO DAILY #30 tabs 07/20/23 atorvastatin 20 mg tablet See Rx Instructions .Route 07/28/23 .COMPLEX #90 tabs Allergies Allergy/AdvReac Type Severity Reaction Status Date / Time adhesive [ADHESIVE] Allergy Mild SENSITIVE Verified 07/15/23 13:57 hydroxyurea [HYDROXYUREA] Allergy Mild ITCHY Verified 07/15/23 13:57 hydroxyzine [HYDROXYZINE] Allergy Mild ITCHY Verified 07/15/23 13:57 codeine [CODEINE] Allergy Unknown dizzyness/f Verified 07/15/23 13:57 ainting Review of Systems <Glenn Coates MD - Last Filed: 07/29/23 09:04> Review of Systems Narrative: GENERAL: negative chills, fatigue, malaise, fever, sweats. HEENT: negative sinus pain, ear pain, sore throat RESPIRATORY: negative dyspnea, cough CARDIOVASCULAR: negative chest pain, palpitations GASTROINTESTINAL: negative nausea, vomiting, abdominal pain : negative dysuria, frequency, hematuria MUSCULOSKELETAL: negative muscle or bony pain SKIN: negative rash, skin lesions NEUROLOGIC: negative weakness, numbness, positive altered mental status positive expressive aphasia negative slurred speech negative facial droop ROS Unobtainable: All systems reviewed & are unremarkable except as noted in HPI and below Patient History <Glenn Coates MD - Last Filed: 07/29/23 09:04> Medical History Acquired hypothyroidism (02/01/13) Arthralgia Cardiac arrhythmia Chronic anticoagulation Chronic atrial fibrillation Colorectal cancer, stage I (~2007) Cutaneous lupus erythematosus (~2002) Cyst of thyroid Disrupted sleep-wake cycle Disturbance in sleep behavior (04/24/14) DJD (degenerative joint disease) Essential hypertension Facet arthropathy, lumbosacral Fracture of distal fibula GERD (gastroesophageal reflux disease) Idiopathic peripheral autonomic neuropathy, unspecified 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) Low back pain Lumbosacral spondylosis with radiculopathy Malignant neoplasm of colon, unspecified (~2007) 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) Myelofibrosis Oral lichen planus (~2009) Peripheral neuropathy (~2012) Polycythemia vera Polycythemia vera (~2006) Postherpetic neuralgia (~2012) Sciatica Spondylosis without myelopathy or radiculopathy, lumbosacral region Stage 3 chronic kidney disease (12/04/14) Surgical History History of bone marrow biopsy (~2013) History of local excision of skin lesion History of thyroid surgery Presence of cardiac pacemaker (~2005) S/P medial meniscectomy of right knee (~1999) Status post colectomy (~2007) Status post hysterectomy (~1974) Social History marital status: household members: spouse Smoking Status: Never smoker alcohol intake: current substance use type: does not use well-balanced diet: daily or most days Smoking Status: Never smoker alcohol intake frequency: 0-2 drinks per day Substance Use Type: does not use Exam <Glenn Coates MD - Last Filed: 07/29/23 09:04> Narrative Exam Narrative: GENERAL: in no distress, not toxic not dyspneic HEAD: Normocephalic. EYES: Pupils equal round ENT: Mucous membranes moist. NECK: Trachea midline. CARDIOVASCULAR: Regular rate and rhythm RESPIRATORY: Clear to auscultation. Breath sounds equal bilaterally. No wheezes, rales, or rhonchi. GASTROINTESTINAL: Abdomen soft, non-tender EXTREMITIES: No gross deformities. BACK: No flank tenderness. NEURO: AOx4.Clear speech no facial droop. ?Light touch intact to bilateral face hands and feet. ?Strong equal corrections cadet bilaterally and ankle flexion hip flexion and knee flexion. ?Strong bilateral patellar reflexes. ?No pronator drift. ? SKIN: Warm and dry PSYCH: Not anxious, is cooperative Initial Vital Signs Initial Vital Signs: Vital Signs Temperature 98 F 07/14/23 15:46 Pulse Rate 76 07/14/23 15:46 Respiratory Rate 17 07/14/23 15:46 Blood Pressure 137/60 07/14/23 15:46 Pulse Oximetry 99 07/14/23 15:46 Oxygen Delivery Method Room Air 07/14/23 15:46 <Gila Curtis DO - Last Filed: 07/15/23 04:33> Initial Vital Signs Initial Vital Signs: Vital Signs Temperature 98 F 07/14/23 15:46 Pulse Rate 76 07/14/23 15:46 Respiratory Rate 17 07/14/23 15:46 Blood Pressure 137/60 07/14/23 15:46 Pulse Oximetry 99 07/14/23 15:46 Oxygen Delivery Method Room Air 07/14/23 15:46 Scores <Glenn Coates MD - Last Filed: 07/29/23 09:04> NIH Stroke Scale Level of Conciousness: Alert, keenly responsive Ask month/age: Answers both questions correctly. Open/close eyes, close hand: Performs both tasks correctly Best gaze horizontal: Normal Visual nolen: No visual loss Facial palsy: Normal symetrical movement Left arm drift: No drift for full 10 sec Right arm drift: No drift for full 10 sec Left leg drift: No drift for full 5 sec Right leg drift: No drift for full 5 sec Limb ataxia: Absent Sensory on face/arms/legs: Normal, no sensory loss Best language: No aphasia, normal Dysarthria: Normal Extinction or inattention: No abnormality Total NIH Stroke scale score: 0 <Gila Curtis DO - Last Filed: 07/15/23 04:33> NIH Stroke Scale Total NIH Stroke scale score: 0 Course <Glenn Coates MD - Last Filed: 07/29/23 09:04> Orders Ordered: Discontinued Medications Sodium Chloride (Normal Saline 0.9%) 500 mls @ 1,000 mls/hr IV BOLUS ONE Stop: 07/14/23 18:14 Last Infusion: 07/14/23 19:06 Dose: Infused Documented By: Admin: 07/14/23 18:02 Dose: 1,000 mls/hr Documented By: GAYE Ondansetron HCl (Ondansetron 4 Mg/2 Ml Inj) 4 mg IV NOW ONE Stop: 07/14/23 18:25 Last Admin: 07/14/23 19:46 Dose: Not Given Documented By: GAYE Vital Signs Vital signs: Vital Signs - 8 hr 07/14/23 20:31 07/14/23 20:31 Pulse Rate 60 Respiratory Rate 17 Blood Pressure 120/58 L Pulse Oximetry 95 <Gila Curtis DO - Last Filed: 07/15/23 04:33> Orders Ordered: Discontinued Medications Sodium Chloride (Normal Saline 0.9%) 500 mls @ 1,000 mls/hr IV BOLUS ONE Stop: 07/14/23 18:14 Last Infusion: 07/14/23 19:06 Dose: Infused Documented By: Admin: 07/14/23 18:02 Dose: 1,000 mls/hr Documented By: GAYE Ondansetron HCl (Ondansetron 4 Mg/2 Ml Inj) 4 mg IV NOW ONE Stop: 07/14/23 18:25 Last Admin: 07/14/23 19:46 Dose: Not Given Documented By: GAYE Vital Signs Vital signs: Vital Signs - 8 hr 07/14/23 20:31 07/14/23 20:31 Pulse Rate 60 Respiratory Rate 17 Blood Pressure 120/58 L Pulse Oximetry 95 MDM - Altered Mental Status <Glenn Coates MD - Last Filed: 07/29/23 09:04> Lab Data 07/14/23 15:50 07/14/23 15:50 Labs: Lab Results 07/14/23 07/14/23 Range/Units 15:50 16:48 WBC 9.6 (4.5-11.0) X10^3/uL RBC 2.93 L (4.0-5.2) X10^6/uL Hgb 10.1 L (12.0-16.0) g/dL Hct 29.8 L (36-46) % MCV 101.8 H (80-100) fL MCH 34.3 H (26-34) PG MCHC 33.7 (30-36) % RDW 13.9 (11.6-14.8) % Plt Count 345 (150-400) X10^3/uL Neut % (Auto) 83.7 H (50-75) % Lymph % (Auto) 6.1 L (25-40) % [place] % (Auto) 9.3 (3-14) % Eos % (Auto) 0.5 L (2-4) % Baso % (Auto) 0.4 (0-2) % Neut # (Auto) 8100 H (7069-3173) /uL Lymph # (Auto) 600 L (8405-9052) /uL [place] # (Auto) 900 (0-900) /uL Eos # (Auto) 0 (0-450) /uL Baso # (Auto) 0 (0-100) /uL Sodium 134 L (137-145) mmol/L Potassium 3.6 (3.4-5.1) mmol/L Chloride 98 (98-107) mmol/L Carbon Dioxide 29 (22-32) mmol/L BUN 25 H (7-17) mg/dL Creatinine 1.33 H (0.52-1.04) mg/dL Estimated GFR 39 L (>60) mL/min BUN/Creatinine Ratio 18.8 (6-22) Glucose 120 H (80-110) mg/dL Calcium 9.1 (8.4-10.2) mg/dL Total Bilirubin 0.6 (0.2-1.3) mg/dL AST 32 (14-36) IU/L ALT 21 (<35) IU/L Alkaline Phosphatase 82 (38-126) U/L Total Protein 7.6 (6.3-8.2) g/dL Albumin 4.2 (3.5-5.0) g/dL Globulin 3.4 (1.7-4.1) g/dL Albumin/Globulin Ratio 1.2 (1.0-2.8) Urine Color Yellow Urine Appearance Clear Urine pH 5.5 (4.5-8.0) Ur Specific [place] 1.010 (1.000-1.035) Urine Protein Trace H (Negative) Urine Glucose (UA) 1+ H (Negative) g/dL Urine Ketones Negative (NEGATIVE) Urine Occult Blood Negative (Negative) Urine Nitrate Negative (Negative) Urine Bilirubin Negative (NEGATIVE) Urine Urobilinogen 0.2 (0.2) E.U./dL Ur Leukocyte Esterase Negative (NEGATIVE) Urine RBC None seen (0-5/HPF) Urine WBC None seen (0-5/HPF) Ur Squamous Epith Cells 0-1 /hpf (0-5/HPF) Urine Bacteria None seen (None) Ur Culture Indicated? Cult not indicated U Opiates 300ng/mL cut Negative (Negative) Ur Oxycodone Screen Negative (Negative) Urine Methadone Screen Negative (Negative) Ur Barbiturates Screen Negative (Negative) U Tricyclic Antidepress Negative (Negative) Ur Phencyclidine Scrn Negative (Negative) Ur Amphetamines Screen Negative (Negative) U Methamphetamines Scrn Negative (Negative) Ur MDMA Scrn (Ecstasy) Negative (Negative) U Benzodiazepines Scrn Negative (Negative) Urine Cocaine Screen Negative (Negative) U Marijuana (THC) Screen Negative (Negative) Imaging Data CT scan - head: Radiologist's Impression: [address] [address] [address] Scan Report Signed Patient: Isela Haney MR#: [id number] : 1935 Acct:[id number] Age/Sex: 88 / F Date of Service: 07/14/23 Loc: ED Accession Number: [id number] ?? Procedure: CT head/brain wo con Ordering Provider: Glenn Coates MD PROCEDURE:? CT HEAD/BRAIN WO CON ? INDICATIONS:? confusion ? TECHNIQUE:? Noncontrast 4.5 mm thick angled axial sections acquired from the foramen magnum to the vertex, with coronal and sagittal reformats.? For radiation dose reduction, the following was used:? automated exposure control, adjustment of mA and/or kV according to patient size.? ? COMPARISON:? [facility], CT, CT CERVICAL SPINE WO CON, 07/14/2023, 15:53.? [facility], CT, HEAD WITHOUT CONTRAST, 11/09/2011, 21:20. ? FINDINGS:? Image quality:? Mild streak artifact can be seen through the skull base. ? CSF spaces:? Basal cisterns are patent.? No extra-axial fluid collections.? The ventricles are symmetric in size and shape.? ? Brain:? No intracranial bleeds or masses.? There is cerebral volume loss for age, with resultant ventricular and sulcal prominence.? There are periventricular and deep white matter chronic small vessel ischemic changes.? There is intracranial internal carotid artery atherosclerosis.? ? Skull and face:? Calvarium and visualized facial bones appear intact, without suspicious lesions.? ? Sinuses:? Visualized sinuses and mastoids are clear.? ? ? IMPRESSION:? No acute intracranial process is seen. ? Note is made of age-appropriate brain parenchymal volume loss and chronic small vessel ischemic changes. ? ? Dictated by: Jose Medina M.D. on 07/14/2023 at 15:19 ? ? Approved by: Jose Medina M.D. on 07/14/2023 at 15:20 ? CT - cervical spine: Radiologist's Impression: [place] [address] CT Scan Report Signed Patient: Isela Haney MR#: [id number] : 1935 Acct:[id number] Age/Sex: 88 / F Date of Service: 07/14/23 Loc: ED Accession Number: [id number] ?? Procedure: CT cervical spine wo con Ordering Provider: Glenn Coates MD PROCEDURE:? CT CERVICAL SPINE WO CON ? INDICATIONS:? fall ? TECHNIQUE:? Noncontrast 3 mm thick sections acquired from the skull base to the T4 level.? Sagittal and coronal reformats were then constructed.? For radiation dose reduction, the following was used:? automated exposure control, adjustment of mA and/or kV according to patient size.? ? COMPARISON:? [facility], CT, SOFT TISSUE NECK W CONTRAST, 01/23/2010, 14:03.? [facility], CT, CT HEAD/BRAIN WO CON, 07/14/2023, 15:53.? [facility], CR, XR CHEST 1V, 07/14/2023, 15:41. ? FINDINGS:? Image quality:? Excellent.? ? Bones:? No fractures or dislocations.? Visualized superior ribs are intact.? ? Focal degenerative change is seen involving the C1-C2 interface anteriorly.? There is at least moderate disc space narrowing seen at C3-C4, C4-C5, C5-C6, and C6-C7.? Posteriorly directed endplate osteophytes are seen, which are worst at C5-C6. ? Soft tissues:? Prevertebral soft tissues are normal in thickness.? No paravertebral hematomas.? No apical pneumothoraces.? A left-sided pacer device is partially seen.? The previously seen right-sided neck lesion is no longer definitely seen. ? ? IMPRESSION:? Negative for acute fracture. ? Multiple levels of significant cervical spine degenerative change can be seen, which are worst at C5-C6. ? ? Dictated by: Jose Medina M.D. on 07/14/2023 at 15:14 ? ? Approved by: Jose Medina M.D. on 07/14/2023 at 15:19 ? Chest x-ray: Radiologist's Impression: [address] [address] XRay Report Signed Patient: Isela Haney MR#: [id number] : 1935 Acct:[id number] Age/Sex: 88 / F Date of Service: 07/14/23 Loc: ED Accession Number: [id number] ?? Procedure: XR chest 1V Ordering Provider: Glenn Coates MD PROCEDURE:? XR CHEST 1V ? INDICATIONS:? altered mental status ? TECHNIQUE:? One view of the chest was acquired.? ? COMPARISON:? [facility], CR, XR CHEST 1V, 06/23/2020, 10:48.? [facility], CR, XR CHEST 1V, 04/21/2023, 14:45. ? FINDINGS:? ? Surgical changes and devices:? A pacer device is seen.? The leads are seen in stable positions.? ? Lungs and pleura:? Lungs are clear.? No pneumothorax.? There is minimal blunting of the left costophrenic angle. ? Mediastinum:? Mediastinal contours appear normal.? Heart size is normal.? ? Bones and chest wall:? No suspicious bony lesions.? Age-appropriate bony degenerative changes are seen.? Mild levoconvex scoliotic curvature is noted. ? ? Overlying soft tissues appear unremarkable.? ? ? IMPRESSION:? Minimal blunting of the left costophrenic angle, which may reflect a small pleural effusion.? Differential diagnosis includes atelectasis and minimal infiltrate, however. ? ? Dictated by: Jose Medina M.D. on 07/14/2023 at 15:20 ? ? Approved by: Jose Medina M.D. on 07/14/2023 at 15:22 ? [facility] Narrative Medical decision making narrative: Patient here for expressive aphasia. Ongoing for the past week. Patient has had trouble coming up with words when she is talking. She also had trouble today with doing her medication pill box where she could not figure out how to place medication into boxes for herself and . This is something she does routinely in very quickly. No slurred speech or facial droop. No limb weakness or numbness or tingling. No prior history of heart attack strokes or diabetes. Patient in no distress at this time. Fast exam is negative. She did have a mechanical fall today when she was leaning over to crab picker something. No loss of consciousness. Denies any recent fever chills cough cold congestion or urinary complaints. After history and exam CBC CMP EKG troponin urinalysis CT head CT cervical spine chest x-ray [facility] CC: Confused Complicating co-morbidities: None Data collected from: Patient Medical records reviewed: No recent visit for this complaint Differential considered: Includes but not limited to TIA UTI dementia Exam documented above, pertinent findings include: Negative fast exam Lab Test results independently reviewed as above. Pertinent findings: Urinalysis negative nitrite negative leukocyte WBC 9.6 hemoglobin 10.1 sodium 134 potassium 3.6 BUN 25 creatinine 1.33 glucose 120 AST 32 ALT 21 drug screen negative Independently reviewed EKG ventricular paced rhythm rate 60 Imaging studies independently reviewed: CT head CT cervical spine chest x-ray no acute finding Consultations: Treatments: Normal saline Re-evaluations: 5:45 p.m.. Updated patient results and agrees for CT angiogram head and neck. At this time she understands she may be admitted for TIA workup Discussion: Diagnosis: 6:00 p.m.. Jaxon: Sign out to Dr Curtis CT angiogram head and neck pending. Neurology consult needed. <Gila Curtis, DO - Last Filed: 07/15/23 04:33> Lab Data Labs: Lab Results 07/14/23 07/14/23 Range/Units 15:50 16:48 WBC 9.6 (4.5-11.0) X10^3/uL RBC 2.93 L (4.0-5.2) X10^6/uL Hgb 10.1 L (12.0-16.0) g/dL Hct 29.8 L (36-46) % MCV 101.8 H (80-100) fL MCH 34.3 H (26-34) PG MCHC 33.7 (30-36) % RDW 13.9 (11.6-14.8) % Plt Count 345 (150-400) X10^3/uL Neut % (Auto) 83.7 H (50-75) % Lymph % (Auto) 6.1 L (25-40) % [place] % (Auto) 9.3 (3-14) % Eos % (Auto) 0.5 L (2-4) % Baso % (Auto) 0.4 (0-2) % Neut # (Auto) 8100 H (1158-0917) /uL Lymph # (Auto) 600 L (2601-7915) /uL [place] # (Auto) 900 (0-900) /uL Eos # (Auto) 0 (0-450) /uL Baso # (Auto) 0 (0-100) /uL Sodium 134 L (137-145) mmol/L Potassium 3.6 (3.4-5.1) mmol/L Chloride 98 (98-107) mmol/L Carbon Dioxide 29 (22-32) mmol/L BUN 25 H (7-17) mg/dL Creatinine 1.33 H (0.52-1.04) mg/dL Estimated GFR 39 L (>60) mL/min BUN/Creatinine Ratio 18.8 (6-22) Glucose 120 H (80-110) mg/dL Calcium 9.1 (8.4-10.2) mg/dL Total Bilirubin 0.6 (0.2-1.3) mg/dL AST 32 (14-36) IU/L ALT 21 (<35) IU/L Alkaline Phosphatase 82 (38-126) U/L Total Protein 7.6 (6.3-8.2) g/dL Albumin 4.2 (3.5-5.0) g/dL Globulin 3.4 (1.7-4.1) g/dL Albumin/Globulin Ratio 1.2 (1.0-2.8) Urine Color Yellow Urine Appearance Clear Urine pH 5.5 (4.5-8.0) Ur Specific [place] 1.010 (1.000-1.035) Urine Protein Trace H (Negative) Urine Glucose (UA) 1+ H (Negative) g/dL Urine Ketones Negative (NEGATIVE) Urine Occult Blood Negative (Negative) Urine Nitrate Negative (Negative) Urine Bilirubin Negative (NEGATIVE) Urine Urobilinogen 0.2 (0.2) E.U./dL Ur Leukocyte Esterase Negative (NEGATIVE) Urine RBC None seen (0-5/HPF) Urine WBC None seen (0-5/HPF) Ur Squamous Epith Cells 0-1 /hpf (0-5/HPF) Urine Bacteria None seen (None) Ur Culture Indicated? Cult not indicated U Opiates 300ng/mL cut Negative (Negative) Ur Oxycodone Screen Negative (Negative) Urine Methadone Screen Negative (Negative) Ur Barbiturates Screen Negative (Negative) U Tricyclic Antidepress Negative (Negative) Ur Phencyclidine Scrn Negative (Negative) Ur Amphetamines Screen Negative (Negative) U Methamphetamines Scrn Negative (Negative) Ur MDMA Scrn (Ecstasy) Negative (Negative) U Benzodiazepines Scrn Negative (Negative) Urine Cocaine Screen Negative (Negative) U Marijuana (THC) Screen Negative (Negative) Imaging Data CTA - brain/neck: Radiologist's Impression: PROCEDURE:? CT ANGIO HEAD AND NECK ? INDICATIONS:? Altered mental status/expressive face ? TECHNIQUE:? After the administration of intravenous contrast, 1 mm thick sections acquired from the aortic arch through the [place] of [place].? 3-dimensional rnexgln-vgfgvtjfw-zwtrtvgqxd (MIP) and/or volume rendering reformats were acquired of the central intracranial vasculature and neck separately. For radiation dose reduction, the following was used:? automated exposure control, adjustment of mA and/or kV according to patient size.? ? COMPARISON:? None. ? FINDINGS:? Image quality:? Diagnostic.? ? BRAIN:? Please refer to separately dictated CT of the head. ? HEAD CT ANGIOGRAPHY:? Anterior circulation:? Intracranial internal carotid arteries are normal in size and flow.? Mild atherosclerotic vascular calcifications.? The flow within the paired anterior cerebral arteries is normal and symmetric.? The flow within the middle cerebral arteries is normal and symmetric.? The anterior communicating artery is seen.? No aneurysms are seen.? ? Posterior circulation:? Visualized portions of the vertebral arteries demonstrate normal caliber, and join to form a normal appearing basilar artery.? origin of the right [employer]INT [employer]GER.? Flow within the posterior cerebral arteries is normal and symmetric.? No aneurysms are seen.? ? NECK CT ANGIOGRAPHY:? Carotid system:? The great vessels demonstrate a conventional anatomy as they arise from the aortic arch.? The origins of the common carotid arteries appear patent.? The common carotid arteries demonstrate normal caliber and courses.? The bifurcation regions are both widely patent.? The internal carotid arteries demonstrate normal calibers and courses.? ? Posterior circulation:? The origins of the vertebral arteries both appear widely patent.? The more superior extracranial portions of both vertebral arteries also demonstrate normal courses and calibers.? They join to form a normal appearing basilar artery.? ? Soft tissues:? Visualized neck soft tissues demonstrate no suspicious abnormalities.? Bilateral dependent atelectasis.? Left chest wall pacemaker.? ? Bones:? No suspicious bony lesions.? Visualized cervical spine appears normally aligned.? Degenerative changes of the spine and decreased osseous mineralization. ? ? IMPRESSION:? ? The arteries of the head and neck are patent without hemodynamically significant stenosis or large vessel occlusion. ? Any quantitative measurements of stenosis were performed using NASCET criteria.? ? ? Dictated by: Tristen Mobley M.D. on 07/14/2023 at 19:08 ? ? [facility] Narrative Medical decision making narrative: Patient here for expressive aphasia. Ongoing for the past week. Patient has had trouble coming up with words when she is talking. She also had trouble today with doing her medication pill box where she could not figure out how to place medication into boxes for herself and . This is something she does routinely in very quickly. No slurred speech or facial droop. No limb weakness or numbness or tingling. No prior history of heart attack strokes or diabetes. Patient in no distress at this time. Fast exam is negative. She did have a mechanical fall today when she was leaning over to crab picker something. No loss of consciousness. Denies any recent fever chills cough cold congestion or urinary complaints. After history and exam CBC CMP EKG troponin urinalysis CT head CT cervical spine chest x-ray [facility] CC: Confused Complicating co-morbidities: None Data collected from: Patient Medical records reviewed: No recent visit for this complaint Differential considered: Includes but not limited to TIA UTI dementia Exam documented above, pertinent findings include: Negative fast exam Lab Test results independently reviewed as above. Pertinent findings: Urinalysis negative nitrite negative leukocyte WBC 9.6 hemoglobin 10.1 sodium 134 potassium 3.6 BUN 25 creatinine 1.33 glucose 120 AST 32 ALT 21 drug screen negative Independently reviewed EKG ventricular paced rhythm rate 60 Imaging studies independently reviewed: CT head CT cervical spine chest x-ray no acute finding Consultations: Treatments: Normal saline Re-evaluations: 5:45 p.m.. Updated patient results and agrees for CT angiogram head and neck. At this time she understands she may be admitted for TIA workup Discussion: Diagnosis: 6:00 p.m.. Jaxon: Sign out to Dr Curtis CT angiogram head and neck pending. Neurology consult needed. DR. Curtis-I received sign-out from Dr. Moffett again seen evaluated patient myself. She reports that she is had difficulty finding some words for about a week. She is a pacemaker for presumed atrial fibrillation she does take Pradaxa today she got concerned because she was not able to put her and her 's pills in the pill box which is something she does very regularly. She is NIH stroke scale of 0 when she 1st arrived and a 2nd NIH stroke scale for me of 0 as well. Due to the pacemaker she can not have an MRI. CT angio was done in does not show any large vessel occlusion. Is possible patient had a minor TIA on Pradaxa. I was not able to talk with Neurology before patient decided that she did not want to stay no matter what. We discussed how she may have had a mini stroke and that she could come back to the ED at any time.. It was recommended that she be observed but she felt like she was doing well and was wasting other people's time. The patient is clinically sober, free from distracting injury, appears to have intact insight, judgment and reason. Does not meet criteria for involuntary hospitalization. Patient has the capacity to make decisions. The patient is also not under any duress to leave the hospital. In this scenario, it would be battery to subject the patient to treatment against his/her will. I have voiced my concerns for the patient's health given that a full evaluation and treatment had not occurred. I have discussed the need for continued evaluation to determine if there symptoms are caused by a condition that present risk of or morbidity. Risk including but not limited to , permanent disability, prolonged hospitalization, prolonged illness, were discussed. I tried offering alternative options in hopes that the patient might be amenable to partial evaluation and treatment which would be medically beneficial to the patient, though the patient declined my options and insisted on leaving. Because I have been unable to convince the patient to stay I answered all of their questions about the condition and ask them to return to the ED as soon as possible to complete their evaluation, especially if their symptoms worsen or do not improve. I emphasized that leaving against medical advice did not preclude returning here for further evaluation. I asked the patient to return if they change their mind about the further evaluation and treatment. I strongly encouraged the patient to return to this emergency department or any emergency department at any time, particularly with worsening symptoms. Discharge Plan Departure Patient Disposition: Left Against Medical Advice Clinical Impression: Brain TIA Activity Restrictions/Additional Instructions: *You have been diagnosed with mini stroke *What to do: At this time it was recommended that you stay in the hospital for further evaluation and close monitoring. Please continue to take all of your medication I recommend outpatient follow-up with Neurology. You are welcome to return back to the emergency department at any time. *Continue to take medications as directed *Follow up with your primary care provider in 2-3 days or call [phone] *Return to ER if you should have increasing confusion word-finding numbness tingling weakness vision changes or any new, worsening or concerning symptoms Prescriptions: No Action metoprolol succinate 25 mg tablet extended release 24 hr 25 mg PO DAILY spironolactone 25 mg tablet 12.5 mg PO DAILY PRN losartan 25 mg tablet 12.5 mg PO .PM digoxin 125 mcg (0.125 mg) tablet 125 mcg PO .EVERY OTHER DAY omeprazole 20 mg capsule,delayed release(DR/EC) 20 mg PO DAILY Qty: 30 2RF Rx Instructions: Take once/day for 2 weeks, can increase to twice/day if symptoms not resolving. furosemide 20 mg tablet 20 mg PO DAILY Qty: 30 0RF magnesium oxide 400 MG capsule 500 mg PO DAILY Qty: 0 cholecalciferol (vitamin D3) [Vitamin D3] 1,000 unit tablet 2,000 unit PO QDAY Qty: 0 diltiazem HCl 120 mg capsule,extended release 24hr 120 mg PO QDAY Qty: 90 3RF Pradaxa 150 mg capsule 150 mg PO BID Qty: 180 3RF (DME) Disabled Parking See Rx Instructions .ROUTE .MEDSUPPLY Qty: 1 0RF Rx Instructions: I find this patient to be medically disabled and qualified for Disabled Parking as indicated, and signed, on the Accompanying Disabled Parking Application for Individuals levothyroxine 25 mcg tablet See Rx Instructions .ROUTE .COMPLEX Qty: 90 3RF Hold Instructions: trying Naturthroid Dose Instruction: Take 1 tablet (0.025 mg) by mouth daily Rx Instructions: Take 1 tablet (0.025 mg) by mouth daily gabapentin 600 mg tablet See Rx Instructions .ROUTE .COMPLEX Qty: 450 1RF Dose Instruction: Take 2 tablets (1,200 mg) by mouth in the AM, 1 tablet (600 mg) at noon, AND 2 tablets (1,200 mg) in the PM for shingles nerve pain. Rx Instructions: Take 2 tablets (1,200 mg) by mouth in the AM, 1 tablet (600 mg) at noon, AND 2 tablets (1,200 mg) in the PM for shingles nerve pain. escitalopram oxalate 5 mg tablet See Rx Instructions .ROUTE .COMPLEX Qty: 90 3RF Dose Instruction: Take 1 tablet (5 mg) by mouth daily Rx Instructions: Take 1 tablet (5 mg) by mouth daily tramadol 50 mg tablet 50 mg PO BID PRN (Reason: pain) Qty: 60 0RF atorvastatin 20 mg tablet See Rx Instructions .ROUTE .COMPLEX Qty: 90 1RF Dose Instruction: Take 1 tablet (20 mg) by mouth at bedtime Rx Instructions: Take 1 tablet (20 mg) by mouth at bedtime beta carotene 25,000 unit Capsule 25,000 unit PO DAILY Rx Instructions: administer with a meal niacinamide 500 mg Tablet 500 mg PO DAILY Jakafi 20 mg Tablet 10 mg PO BID Qty: 30 5RF Rx Instructions: take 0.5 tablet (10mg) by mouth 2 times daily biotin 10,000 mcg Capsule 10,000 mcg PO DAILY alpha lipoic acid 600 mg Tablet 600 mg PO BID Referrals: Jyoti Mcrae MD [Primary Care Provider] - Stand Alone Forms: Against Medical Advice
[2023-07-14 17:48] LABS: Bacteria Urine None Seen; Culture Indicated Urine Cult Not Indicated; RBC Urine None Seen (0-5/HPF); Squamous Epithelial Cell Urine 0-1 /HPF (0-5/HPF); WBC Urine None Seen (0-5/HPF)
[2023-07-14] MEDS: SODIUM CHLORIDE 0.9% 500 ML 1000 ML IV (18:02)
== END 2023-07-14 21:04 | disposition left against medical advice (07) ==
PROVIDERS: Emergency Medicine; Emergency Provider Emergency Medicine; PCP Family Medicine
DX: G45.9 Transient cerebral ischemic attack, unspecified (principal); W18.30XA Fall on same level, unspecified, initial encounter
CPT/HCPCS: 36415; 70450; 70496; 70498; 71045; 72125; 80053; 80305; 81001; 85025; 93005; 96360; 99284

== ENCOUNTER 2023-07-19 11:48 | Emergency (ER) | payer OTHER, SELFPAY ==
[2022-04-07 09:59] VITALS: BMI 23.1
[2023-07-19 11:56] VITALS: BP 127/72; PULSE 60; O2SAT 96
[2023-07-19 11:58] VITALS: BP 127/72; PULSE 71; RESP 18; TEMP 36.8; O2SAT 96; BMI 22.3
[2023-07-19 12:00] VITALS: PULSE 60; O2SAT 93
--- NOTE | 2023-07-19 12:03 | DI.RAD.S_ITS ---
PROCEDURE: XR ANKLE RT MIN 3V INDICATIONS: ankle pain after fall TECHNIQUE: 3 views of the ankle were acquired. COMPARISON: [facility], CR, XR ANKLE LT MIN 3V, 02/27/2021, 9:42. FINDINGS: Bones: Mildly displaced obliquely oriented distal fibular fracture. The talar dome appears intact. No definite widening of the medial clear space. Soft tissues: No tibiotalar joint effusion. Achilles tendon appears normal. IMPRESSION: Mildly displaced obliquely oriented fracture of the distal fibula. Dictated by: Tristen Mobley M.D. on 07/19/2023 at 12:22 Approved by: Tristen Mobley M.D. on 07/19/2023 at 12:24
--- NOTE | 2023-07-19 12:38 | ED.FALL ---
HPI - Fall General Chief Complaint: Fall Stated Complaint: GLF on thinners Time Seen by Provider: 07/19/23 12:29 Source: patient and EMS Mode of arrival: EMS History of Present Illness HPI Narrative: Patient is an 88-year-old female. She is on anticoagulation. She states that she has had issues recently with becoming lightheaded and falling. She has talked with her primary doctor about this. She thinks she is on too many medications. She states that she has had referral to see specialist in this area. She did fall last week and did hit her head but she would no residual symptoms from this. She states that today she was sitting down talking on the phone. She stood up and she thinks that her legs went out from underneath her. She did twist her right ankle and fell. She sustained an injury to her right ankle. She did not hit her head today. No other injuries from the event. Related Data Home Medications Medication Instructions Recorded Confirmed magnesium oxide 500 mg PO DAILY ##0 01/05/18 07/15/23 cholecalciferol (vitamin D3) 25 2,000 unit PO QDAY #0 tabs 06/19/18 07/15/23 mcg (1,000 unit) tablet (Vitamin D3) alpha lipoic acid 600 mg tablet 600 mg PO BID 06/21/20 07/15/23 biotin 10,000 mcg capsule 10,000 mcg PO DAILY 06/21/20 07/15/23 beta carotene 7,500 mcg (25,000 25,000 unit PO DAILY 07/19/22 07/15/23 unit) capsule niacinamide 500 mg tablet 500 mg PO DAILY 07/19/22 07/15/23 metoprolol succinate 25 mg 25 mg PO DAILY 04/13/23 07/15/23 tablet,extended release 24 hr digoxin 125 mcg (0.125 mg) tablet 125 mcg PO .EVERY OTHER DAY 05/17/23 07/15/23 furosemide 40 mg tablet 40 mg PO QDAY water retention 05/17/23 07/15/23 losartan 25 mg tablet 12.5 mg PO .PM 05/17/23 07/15/23 spironolactone 25 mg tablet 12.5 mg PO DAILY PRN 05/17/23 07/15/23 Previous Rx's Medication Instructions Recorded diltiazem HCl 120 mg 120 mg PO QDAY #90 tabs 01/16/19 capsule,extended release 24 hr dabigatran etexilate 150 mg 150 mg PO BID #180 caps 03/14/19 capsule (Pradaxa) ruxolitinib 20 mg tablet (Jakafi) 10 mg PO BID #30 tabs 12/13/22 Disabled Parking #1 ea 12/22/22 levothyroxine 25 mcg tablet See Rx Instructions .Route 12/23/22 .COMPLEX #90 tabs atorvastatin 20 mg tablet See Rx Instructions .Route 01/26/23 .COMPLEX #90 tabs gabapentin 600 mg tablet See Rx Instructions .Route 03/01/23 .COMPLEX #450 tabs escitalopram oxalate 5 mg tablet See Rx Instructions .Route 03/08/23 .COMPLEX #90 tabs omeprazole 20 mg capsule,delayed 20 mg PO DAILY #30 caps 06/08/23 release tramadol 50 mg tablet 50 mg PO BID PRN pain #60 tabs 07/08/23 Allergies Allergy/AdvReac Type Severity Reaction Status Date / Time adhesive [ADHESIVE] Allergy Mild SENSITIVE Verified 07/15/23 13:57 hydroxyurea [HYDROXYUREA] Allergy Mild ITCHY Verified 07/15/23 13:57 hydroxyzine [HYDROXYZINE] Allergy Mild ITCHY Verified 07/15/23 13:57 codeine [CODEINE] Allergy Unknown dizzyness/f Verified 07/15/23 13:57 ainting Review of Systems Constitutional Constitutional: Reports system reviewed and no additional complaints, except as documented Musculoskeletal Musculoskeletal: Reports system reviewed and no additional complaints, except as documented Integumentary/Breasts Skin/Breast: Reports system reviewed and no additional complaints, except as documented Neurologic Neurologic: Reports system reviewed and no additional complaints, except as documented Hematologic/Lymphatic On Anticoagulants: Yes Patient History Medical History Acquired hypothyroidism (02/01/13) Arthralgia Cardiac arrhythmia Chronic anticoagulation Chronic atrial fibrillation Colorectal cancer, stage I (~2007) Cutaneous lupus erythematosus (~2002) Cyst of thyroid Disrupted sleep-wake cycle Disturbance in sleep behavior (04/24/14) DJD (degenerative joint disease) Essential hypertension Facet arthropathy, lumbosacral Fracture of distal fibula GERD (gastroesophageal reflux disease) Idiopathic peripheral autonomic neuropathy, unspecified 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) Low back pain Lumbosacral spondylosis with radiculopathy Malignant neoplasm of colon, unspecified (~2007) 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) Myelofibrosis Oral lichen planus (~2009) Peripheral neuropathy (~2012) Polycythemia vera Polycythemia vera (~2006) Postherpetic neuralgia (~2012) Sciatica Spondylosis without myelopathy or radiculopathy, lumbosacral region Stage 3 chronic kidney disease (12/04/14) Surgical History History of bone marrow biopsy (~2013) History of local excision of skin lesion History of thyroid surgery Presence of cardiac pacemaker (~2005) S/P medial meniscectomy of right knee (~1999) Status post colectomy (~2007) Status post hysterectomy (~1974) Social History marital status: household members: spouse Smoking Status: Never smoker alcohol intake: current substance use type: does not use well-balanced diet: daily or most days Smoking Status: Never smoker alcohol intake frequency: 0-2 drinks per day Substance Use Type: does not use Exam Initial Vital Signs Initial Vital Signs: Vital Signs Temperature 98.2 F 07/19/23 11:58 Pulse Rate 71 07/19/23 11:58 Respiratory Rate 18 07/19/23 11:58 Blood Pressure 127/72 07/19/23 11:58 Pulse Oximetry 96 07/19/23 11:58 Oxygen Delivery Method Room Air 07/19/23 11:58 HENNV Head: contusion (Forehead from her fall last week) Resp Effort & Inspection: normal respiratory effort Cardio Rate: regular rate Pulses: dorsalis pedis present on the right Skin Other: Swelling and slight bruising to the lateral aspect of the right ankle over the lateral malleolus Neuro Sensory Exam: no sensory deficits noted Extrem Other: No proximal tibia/fibular tenderness. She is tender along the lateral malleolus. No tenderness along the medial malleolus. Hamstring is intact. Procedures Orthopedic Splinting/Casting Injury #1: Side: right Lower Extremity Injury Location: ankle Lower Extremity Immobilizer: boot orthosis Post splinting neuro exam: intact Post splinting vascular exam: intact Placed by: Nursing Course Orders Ordered: ED Orders 07/19/23 12:03 XR ankle RT min 3V Stat Vital Signs Vital signs: Vital Signs - 8 hr 07/19/23 11:58 Temperature 98.2 F Pulse Rate 71 Respiratory Rate 18 Blood Pressure 127/72 Pulse Oximetry 96 Oxygen Delivery Method Room Air MDM - Fall Lab Data Attestation: I reviewed the patient's lab results. Labs: Urine Dip Bedside Urine Glucose 250 mg/dl Bedside Urine Bilirubin - Negative Bedside Urine Ketone - Negative Urine Specific Holmes 1.010 Bedside Urine Occult Blood - Negative Bedside Urine pH 8.0 Bedside Urine Protein - Negative Bedside Urine Urobilinogen - Negative Bedside Urine Nitrite - Negative Bedside Urine Leukocytes - Negative Esterase Imaging Data Extremity x-ray #1: Radiologist's Impression: PROCEDURE:? XR ANKLE RT MIN 3V ? INDICATIONS:? ankle pain after fall ? TECHNIQUE:? 3 views of the ankle were acquired.? ? COMPARISON:? [facility], CR, XR ANKLE LT MIN 3V, 02/27/2021, 9:42. ? FINDINGS:? ? Bones:? Mildly displaced obliquely oriented distal fibular fracture.? The talar dome appears intact.? No definite widening of the medial clear space. ? Soft tissues:? No tibiotalar joint effusion.? Achilles tendon appears normal.? ? ? IMPRESSION:? ? Mildly displaced obliquely oriented fracture of the distal fibula. ? [facility] Narrative Medical decision making narrative: Patient was uninterested in talking about her fall and head injury from 1 week ago. She did sustained an isolated fibula fracture noted on x-rays today. I did discuss this with her. She does have a cane and also a walker at home. We will place her in a orthopedic boot. She was told that she can be weight-bearing as tolerated. Informed patient that she does need to follow-up with orthopedic surgery. She was given return precautions. She expressed understanding and agreement. Discharge Plan Departure Patient Disposition: Home Clinical Impression: Ankle fracture, right Instructions: DI for Ankle Fracture, How to Use a Walking Boot Activity Restrictions/Additional Instructions: You do require follow-up with orthopedic surgery. You can contact them with the number provided below for follow-up. The orthopedic boot should be worn whenever your up and walking. You can walk on your right leg as tolerated. Use your walker and cane at home as needed. You can take the boot off at night to sleep and at home while you are sitting in order to ice your ankle. Prescriptions: No Action metoprolol succinate 25 mg tablet extended release 24 hr 25 mg PO DAILY spironolactone 25 mg tablet 12.5 mg PO DAILY PRN furosemide 40 mg tablet 40 mg PO QDAY losartan 25 mg tablet 12.5 mg PO .PM digoxin 125 mcg (0.125 mg) tablet 125 mcg PO .EVERY OTHER DAY omeprazole 20 mg capsule,delayed release(DR/EC) 20 mg PO DAILY Qty: 30 2RF Rx Instructions: Take once/day for 2 weeks, can increase to twice/day if symptoms not resolving. magnesium oxide 400 MG capsule 500 mg PO DAILY Qty: 0 cholecalciferol (vitamin D3) [Vitamin D3] 1,000 unit tablet 2,000 unit PO QDAY Qty: 0 diltiazem HCl 120 mg capsule,extended release 24hr 120 mg PO QDAY Qty: 90 3RF Pradaxa 150 mg capsule 150 mg PO BID Qty: 180 3RF (DME) Disabled Parking See Rx Instructions .ROUTE .MEDSUPPLY Qty: 1 0RF Rx Instructions: I find this patient to be medically disabled and qualified for Disabled Parking as indicated, and signed, on the Accompanying Disabled Parking Application for Individuals levothyroxine 25 mcg tablet See Rx Instructions .ROUTE .COMPLEX Qty: 90 3RF Hold Instructions: trying Naturthroid Dose Instruction: Take 1 tablet (0.025 mg) by mouth daily Rx Instructions: Take 1 tablet (0.025 mg) by mouth daily atorvastatin 20 mg tablet See Rx Instructions .ROUTE .COMPLEX Qty: 90 1RF Dose Instruction: Take 1 tablet (20 mg) by mouth at bedtime Rx Instructions: Take 1 tablet (20 mg) by mouth at bedtime gabapentin 600 mg tablet See Rx Instructions .ROUTE .COMPLEX Qty: 450 1RF Dose Instruction: Take 2 tablets (1,200 mg) by mouth in the AM, 1 tablet (600 mg) at noon, AND 2 tablets (1,200 mg) in the PM for shingles nerve pain. Rx Instructions: Take 2 tablets (1,200 mg) by mouth in the AM, 1 tablet (600 mg) at noon, AND 2 tablets (1,200 mg) in the PM for shingles nerve pain. escitalopram oxalate 5 mg tablet See Rx Instructions .ROUTE .COMPLEX Qty: 90 3RF Dose Instruction: Take 1 tablet (5 mg) by mouth daily Rx Instructions: Take 1 tablet (5 mg) by mouth daily tramadol 50 mg tablet 50 mg PO BID PRN (Reason: pain) Qty: 60 0RF beta carotene 25,000 unit Capsule 25,000 unit PO DAILY Rx Instructions: administer with a meal niacinamide 500 mg Tablet 500 mg PO DAILY Jakafi 20 mg Tablet 10 mg PO BID Qty: 30 5RF Rx Instructions: take 0.5 tablet (10mg) by mouth 2 times daily biotin 10,000 mcg Capsule 10,000 mcg PO DAILY alpha lipoic acid 600 mg Tablet 600 mg PO BID Referrals: Blanca Peña MD [Physician] - Jyoti Mcrae MD [Primary Care Provider] - Stand Alone Forms: Patient Portal/API
[2023-07-19 13:28] VITALS: BP 122/76
== END 2023-07-19 13:35 | disposition home or self-care (01) ==
PROVIDERS: Emergency Provider Emergency Medicine; PCP Family Medicine
DX: S82.891A Other fracture of right lower leg, initial encounter for closed fracture (principal); W18.30XA Fall on same level, unspecified, initial encounter; Z79.01 Long term (current) use of anticoagulants
CPT/HCPCS: 73610; 81003; 99283; 99284

== ENCOUNTER → 2023-08-21 12:52 | Outpatient (CLI) | payer OTHER, SELFPAY ==
[2022-04-07 09:59] VITALS: BMI 23.1
== END ==
PROVIDERS: PCP Family Medicine; Visit Provider Nurse Practitioner Family
DX: R10.9 Unspecified abdominal pain (principal)
CPT/HCPCS: 87077; 87086; 87186

== ENCOUNTER → 2023-09-02 09:31 | Outpatient (CLI) | payer OTHER, SELFPAY ==
[2022-04-07 09:59] VITALS: BMI 23.1
== END ==
PROVIDERS: PCP Family Medicine; Visit Provider Nurse Practitioner Family
DX: R30.0 Dysuria (principal)
CPT/HCPCS: 87077; 87086; 87186

== ENCOUNTER → 2023-09-05 12:25 | Outpatient (CLI) | payer OTHER, SELFPAY ==
[2022-04-07 09:59] VITALS: BMI 23.1
--- NOTE | 2023-09-05 12:27 | DI.ECHO.S_ITS ---
[facility] +---------+ : : [address] : [address] : : : : [id number] : : : : Phone: [phone]+ Echocardiogram Report + + :Name: SANG VO Study Date: 09/05/2023 Height: 64 in : :[facility] ReadingLocation: Weight: 130 lb : : Gender: Female BSA: 1.6 m2 : :: 1935 Age: 88 yrs BP: 109/49 mmHg: :Reason For Study: TIA : :Ordering Physician: ABILIO, : :FATIMHA Performed By: Samantha Santiago : :Referring: FATIMAH KNOX : + + Interpretation Summary The ejection fraction is estimated to be 40-45%. Diastolic function could not be accurately assessed due to paced rhythm. The left atrium is moderately dilated. The right ventricle is mildly dilated. The right ventricular systolic function is normal. The right atrium is severely dilated. There is moderate mitral regurgitation. There is trace aortic regurgitation. There is moderate tricuspid regurgitation. The right ventricular systolic pressure is estimated to be at least 29 mmHg based on an estimated right atrial pressure of 3 mm Hg. Procedure: A two-dimensional transthoracic echocardiogram with color flow and Doppler was performed. The study quality was technically adequate. The patient had an echocardiogram, but there is no comparison study available. The patient has a paced rhythm. Left Ventricle: The left ventricle is normal in size and wall thickness. The ejection fraction is estimated to be 40-45%. Diastolic function could not be accurately assessed due to paced rhythm. Right Ventricle: The right ventricle is mildly dilated. There is a pacemaker lead in the right ventricle. The right ventricular systolic function is normal. Atria: The left atrium is moderately dilated. The right atrium is severely dilated. There is no Doppler evidence for an interatrial shunt. Mitral Valve: The mitral valve is normal. There is no mitral valve stenosis. There is moderate mitral regurgitation. Aortic Valve: The aortic valve is trileaflet. The aortic valve opens well. There is mild aortic valve sclerosis. There is no aortic valve stenosis. There is trace aortic regurgitation. Tricuspid Valve: The tricuspid valve is normal. There is no tricuspid stenosis. There is moderate tricuspid regurgitation. The right ventricular systolic pressure is estimated to be at least 29 mmHg based on an estimated right atrial pressure of 3 mm Hg. Pulmonic Valve: The pulmonic valve leaflets are thin and pliable; valve motion is normal. There is no pulmonic valvular stenosis. There is trace pulmonic regurgitation. Great Vessels: The aortic root is normal size. The ascending aorta is normal in size. The pulmonary artery is normal size. The IVC is of normal diameter and collapses greater than 50% with a sniff. This suggests a low right atrial pressure of 3 mm Hg. Pericardium/ Pleura There is no pericardial effusion. There is no pleural effusion. MMode/2D Measurements & Calculations LVIDd: 4.0 cm LVOT diam: 2.0 cm LVIDs: 1.9 cm Ao root diam: 3.0 cm FS: 52.5 % asc Aorta Diam: 3.1 cm IVSd: 1.1 cm LVPWd: 1.1 cm LV boo. diameter/BSA (cm/m^2): 2.5 LV sys. diameter/BSA (cm/m^2): 1.2 LA A2 area: 21.6 cm2 RA long axis: 6.8 cm LA A4 area: 20.4 cm2 RA area: 26.9 cm2 LA length (vol): 6.5 cm RA vol: 90.3 ml LA vol: 57.8 ml RA : 55.4 ml/m2 LA vol index: 35.5 ml/m2 IVC diam: 1.7 cm RVD1 (basal): 4.3 cm LVLs ap4: 5.5 cm LVLd ap2: 6.4 cm TAPSE_phl: 2.2 cm LVLs ap2: 5.5 cm Doppler Measurements & Calculations Ao V2 max: 104.5 cm/sec LVOT Max Bhavesh: 87.4 cm/sec Ao V2 mean: 73.8 cm/sec LV V1 max P.1 mmHg Ao max P.0 mmHg LV V1 VTI: 15.2 cm Ao mean P.5 mmHg ISABELLA(I,D): 2.1 cm2 Ao V2 VTI: 22.3 cm ISABELLA(V,D): 2.6 cm2 sev ratio: 0.68 ISABELLA indexed to BSA (cm^2/m^2): 1.3 MV E max bhavesh: 111.0 cm/sec TR max bhavesh: 232.0 cm/sec MV A max bhavesh: 26.6 cm/sec TR max P.2 mmHg MV E/A: 4.2 PA V2 max: 84.7 cm/sec MV dec time: 0.14 sec PA V2 mean: 57.6 cm/sec PA mean P.0 mmHg PA pr(Accel): 49.3 mmHg SV(LVOT): 47.6 ml AV VR_phl: 0.83 ISABELLA(VTI)/BSA_phl: 1.3 Reading Physician:02:32 PM
== END ==
PROVIDERS: PCP Family Medicine; Referring Provider Family Medicine; Visit Provider Family Medicine
DX: G45.9 Transient cerebral ischemic attack, unspecified (principal); I08.3 Combined rheumatic disorders of mitral, aortic and tricuspid valves; Z95.0 Presence of cardiac pacemaker
CPT/HCPCS: 93306

== ENCOUNTER → 2023-09-09 11:53 | Outpatient (CLI) | payer OTHER, SELFPAY ==
[2022-04-07 09:59] VITALS: BMI 23.1
== END ==
PROVIDERS: PCP Family Medicine; Visit Provider Family Medicine
DX: N39.0 Urinary tract infection, site not specified (principal)
CPT/HCPCS: 87077; 87086; 87186

== ENCOUNTER → 2023-09-09 12:08 | Outpatient (CLI) | payer OTHER, SELFPAY ==
[2022-04-07 09:59] VITALS: BMI 23.1
--- NOTE | 2023-09-09 | DI.US.S_ITS ---
PROCEDURE: US PERIPH VENOUS LOW EXTREM RT INDICATIONS: Right leg swelling, Please evaluate for DVT TECHNIQUE: Real-time imaging, as well as color and pulse Doppler interrogation, were performed of the lower extremity deep veins from the inguinal ligament to the popliteal fossa, with documentation of the visualized calf veins. COMPARISON: None. FINDINGS: The common femoral, femoral, popliteal, and the visualized calf veins are normally compressible, and free of intraluminal thrombus. Color and pulse Doppler demonstrate normal phasic intraluminal flow. There is normal augmentation response to distal compression maneuver. IMPRESSION: No findings of lower extremity deep venous thrombosis. Dictated by: Jose Medina M.D. on 09/09/2023 at 12:54 Approved by: Jose Medina M.D. on 09/09/2023 at 12:54
== END ==
PROVIDERS: PCP Family Medicine; Referring Provider Family Medicine; Visit Provider Family Medicine
DX: I87.2 Venous insufficiency (chronic) (peripheral) (principal); N39.0 Urinary tract infection, site not specified
CPT/HCPCS: 87077; 87086; 87186; 93971

== ENCOUNTER 2023-09-10 13:22 | Emergency (ER) | payer OTHER, SELFPAY ==
[2022-04-07 09:59] VITALS: BMI 23.1
[2023-09-10 13:34] VITALS: BP 117/55; PULSE 60; RESP 17; TEMP 37.1; O2SAT 98; BMI 22.6
--- NOTE | 2023-09-10 13:43 | ED_ITS ---
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 Patient presents with complaint of increased pain of her left nichols that started in the last 12-24 hours. There is a small area of abrasion she states her skin breakdown and a small wounds that occur occasionally. She states she did have skin infection in her right leg after an orthopedic surgery but does not normally have issues with skin infections. Patient denies fevers chills or other systemic symptoms. No chest pain, no new shortness of breath. No nausea no vomiting no other GI or urinary symptoms. She states redness has been localized has been spreading since last night. Is tender to the touch and with movement. She states no known drug allergies. Allergy to codeine, adverse reaction to hydroxyzine hydroxyurea. No tobacco, 1 glass of wine nightly, no recreational drugs. Related Data Home Medications Medication Instructions Recorded Confirmed magnesium oxide 500 mg PO DAILY ##0 01/05/18 09/09/23 cholecalciferol (vitamin D3) 25 2,000 unit PO QDAY #0 tabs 06/19/18 09/09/23 mcg (1,000 unit) tablet (Vitamin D3) alpha lipoic acid 600 mg tablet 600 mg PO BID 06/21/20 09/09/23 biotin 10,000 mcg capsule 10,000 mcg PO DAILY 06/21/20 09/09/23 beta carotene 7,500 mcg (25,000 25,000 unit PO DAILY 07/19/22 09/09/23 unit) capsule niacinamide 500 mg tablet 500 mg PO DAILY 07/19/22 09/09/23 metoprolol succinate 25 mg 25 mg PO DAILY 04/13/23 09/09/23 tablet,extended release 24 hr digoxin 125 mcg (0.125 mg) tablet 125 mcg PO .EVERY OTHER DAY 05/17/23 09/09/23 losartan 25 mg tablet 12.5 mg PO .PM 05/17/23 09/09/23 spironolactone 25 mg tablet 12.5 mg PO DAILY PRN 05/17/23 09/09/23 Previous Rx's Medication Instructions Recorded diltiazem HCl 120 mg 120 mg PO QDAY #90 tabs 01/16/19 capsule,extended release 24 hr dabigatran etexilate 150 mg 150 mg PO BID #180 caps 03/14/19 capsule (Pradaxa) ruxolitinib 20 mg tablet (Jakafi) 10 mg (1/2 x 20 mg) PO BID #30 tabs 12/13/22 Disabled Parking #1 ea 12/22/22 levothyroxine 25 mcg tablet See Rx Instructions .Route 12/23/22 .COMPLEX #90 tabs gabapentin 600 mg tablet See Rx Instructions .Route 03/01/23 .COMPLEX #450 tabs escitalopram oxalate 5 mg tablet See Rx Instructions .Route 03/08/23 .COMPLEX #90 tabs omeprazole 20 mg capsule,delayed 20 mg PO DAILY #30 caps 06/08/23 release atorvastatin 20 mg tablet See Rx Instructions .Route 07/28/23 .COMPLEX #90 tabs tramadol 50 mg tablet 50 mg PO TID PRN pain #90 tabs 08/10/23 cefdinir 300 mg capsule 300 mg PO BID #14 caps 08/21/23 amoxicillin 875 mg-potassium 1 tab PO BID #10 tabs 09/02/23 clavulanate 125 mg tablet furosemide 20 mg tablet 40 mg (2 x 20 mg) PO DAILY #30 tabs 09/09/23 clindamycin HCl 300 mg capsule 300 mg PO QID #40 caps 09/10/23 clindamycin HCl 300 mg capsule 300 mg PO QID #40 caps 09/10/23 Allergies Allergy/AdvReac Type Severity Reaction Status Date / Time adhesive [ADHESIVE] Allergy Mild SENSITIVE Verified 09/10/23 13:36 hydroxyurea [HYDROXYUREA] Allergy Mild ITCHY Verified 09/10/23 13:36 hydroxyzine [HYDROXYZINE] Allergy Mild ITCHY Verified 09/10/23 13:36 codeine [CODEINE] Allergy Unknown dizzyness/f Verified 09/10/23 13:36 ainting Review of Systems Review of Systems ROS Unobtainable: All systems reviewed & are unremarkable except as noted in HPI and below Patient History Medical History Fracture of distal fibula Chronic anticoagulation Facet arthropathy, lumbosacral Spondylosis without myelopathy or radiculopathy, lumbosacral region GERD (gastroesophageal reflux disease) Lumbosacral spondylosis with radiculopathy Postherpetic neuralgia (~2012) Idiopathic peripheral autonomic neuropathy, unspecified Malignant neoplasm of colon, unspecified (~2007) Cyst of thyroid Disrupted sleep-wake cycle Peripheral neuropathy (~2012) DJD (degenerative joint disease) Arthralgia 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) Cardiac arrhythmia Myelofibrosis Polycythemia vera (~2006) Colorectal cancer, stage I (~2007) Stage 3 chronic kidney disease (12/04/14) 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) Disturbance in sleep behavior (04/24/14) 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) Polycythemia vera Essential hypertension Acquired hypothyroidism (02/01/13) Chronic atrial fibrillation Low back pain Sciatica Surgical History History of local excision of skin lesion History of bone marrow biopsy (~2013) S/P medial meniscectomy of right knee (~1999) History of thyroid surgery Status post hysterectomy (~1974) Status post colectomy (~2007) Presence of cardiac pacemaker (~2005) Social History marital status: household members: spouse Smoking Status: Never smoker alcohol intake: current substance use type: does not use well-balanced diet: daily or most days Smoking Status: Never smoker alcohol intake frequency: 0-2 drinks per day Substance Use Type: does not use Exam Narrative Exam Narrative: GENERAL: Alert and oriented x three, then elderly female in buoh-gy-roqohndn distress HEENT: Head normocephalic, atraumatic, EOMI, pupils reactive, face symmetric, moist mucous membranes NECK: Supple, full range of motion CARDIOVASCULAR: Regular rate and rhythm without murmurs, rubs or gallops. No JVD. RESPIRATORY: Breath sounds equal bilaterally, no wheezes rales or rhonchi. Tachypnea accessory muscle use ABDOMEN: Soft, nontender. Normoactive bowel sounds all 4 quadrants. No guarding or rebound, rigidity, no mass : No CVA tenderness EXTREMITIES: Normal range of motion, no clubbing or edema. Neurovascularly intact. Patient has a air splint on her right ankle. On her left she has a patch approximately 7 by or cm of erythema that is patchy with an adjacent area of abrasion, no purulent drainage, no foul odor, there is some slight warmth to the area. No blisters, no other skin breakdown appreciated. Patient tender to the touch over the area over the left anterior nichols. Patient has 2+ dorsalis pedis. Cap refill less than 5 seconds in all 5 toes. Normal range of motion. No bony tenderness. No edema appreciated. NEUROLOGICAL: Cranial nerves II through XII grossly intact. Moving all extremities SKIN: Warm, dry, no petechiae, no rashes or lesions otherwise noted. Initial Vital Signs Initial Vital Signs: Vital Signs Temperature 98.8 F 09/10/23 13:34 Pulse Rate 60 09/10/23 13:34 Respiratory Rate 17 09/10/23 13:34 Blood Pressure 117/55 L 09/10/23 13:34 Pulse Oximetry 98 09/10/23 13:34 Oxygen Delivery Method Room Air 09/10/23 13:34 Course Orders Ordered: Discontinued Medications Clindamycin HCl (Clindamycin 150 Mg Capsule) 300 mg PO NOW ONE Stop: 09/10/23 13:44 Last Admin: 09/10/23 13:48 Dose: 300 mg Documented By: IRTA Vital Signs Vital signs: Vital Signs - 8 hr 09/10/23 13:34 Temperature 98.8 F Pulse Rate 60 Respiratory Rate 17 Blood Pressure 117/55 L Pulse Oximetry 98 Oxygen Delivery Method Room Air MDM - Extremity (Nontraumatic) MDM Narrative Medical decision making narrative: 88-year-old anticoagulated with Pradaxa, known history of atrial fibrillation on Jakafi for polycythemia that has progressed to cancer. Patient presents with area of abrasion and adjacent erythema, warmth signs consistent with cellulitis. No swelling of the lower extremity or other changes with localized changes consistent more with infection. Patient started on oral antibiotic, vitals are appropriate she does not appear to require IV antibiotics or further workup at this time. Return precautions discussed. Discharge Plan Departure Patient Disposition: Home Clinical Impression: Cellulitis of left leg Instructions: DI for Cellulitis -- Adult Activity Restrictions/Additional Instructions: Please follow-up for recheck in the next 2-3 days if you are not having any improvement of the infection on your leg. Take antibiotics until completed. Prescription sent to [facility] in [place] Please return for fevers, increasing redness, swelling, increasing pain, purulent drainage, nausea or vomiting or other new or concerning changes. Prescriptions: New clindamycin HCl 300 mg capsule 300 mg PO QID Qty: 40 0RF clindamycin HCl 300 mg capsule 300 mg PO QID Qty: 40 0RF No Action metoprolol succinate 25 mg tablet extended release 24 hr 25 mg PO DAILY cefdinir 300 mg capsule 300 mg PO BID Qty: 14 0RF amoxicillin-pot clavulanate 875-125 mg tablet 1 tab PO BID Qty: 10 0RF furosemide 20 mg tablet 40 mg PO DAILY Qty: 30 0RF spironolactone 25 mg tablet 12.5 mg PO DAILY PRN losartan 25 mg tablet 12.5 mg PO .PM digoxin 125 mcg (0.125 mg) tablet 125 mcg PO .EVERY OTHER DAY omeprazole 20 mg capsule,delayed release(DR/EC) 20 mg PO DAILY Qty: 30 2RF Rx Instructions: Take once/day for 2 weeks, can increase to twice/day if symptoms not resolving. magnesium oxide 400 MG capsule 500 mg PO DAILY Qty: 0 cholecalciferol (vitamin D3) [Vitamin D3] 1,000 unit tablet 2,000 unit PO QDAY Qty: 0 diltiazem HCl 120 mg capsule,extended release 24hr 120 mg PO QDAY Qty: 90 3RF Pradaxa 150 mg capsule 150 mg PO BID Qty: 180 3RF (DME) Disabled Parking See Rx Instructions .ROUTE .MEDSUPPLY Qty: 1 0RF Rx Instructions: I find this patient to be medically disabled and qualified for Disabled Parking as indicated, and signed, on the Accompanying Disabled Parking Application for Individuals levothyroxine 25 mcg tablet See Rx Instructions .ROUTE .COMPLEX Qty: 90 3RF Hold Instructions: trying Naturthroid Dose Instruction: Take 1 tablet (0.025 mg) by mouth daily Rx Instructions: Take 1 tablet (0.025 mg) by mouth daily gabapentin 600 mg tablet See Rx Instructions .ROUTE .COMPLEX Qty: 450 1RF Dose Instruction: Take 2 tablets (1,200 mg) by mouth in the AM, 1 tablet (600 mg) at noon, AND 2 tablets (1,200 mg) in the PM for shingles nerve pain. Rx Instructions: Take 2 tablets (1,200 mg) by mouth in the AM, 1 tablet (600 mg) at noon, AND 2 tablets (1,200 mg) in the PM for shingles nerve pain. escitalopram oxalate 5 mg tablet See Rx Instructions .ROUTE .COMPLEX Qty: 90 3RF Dose Instruction: Take 1 tablet (5 mg) by mouth daily Rx Instructions: Take 1 tablet (5 mg) by mouth daily atorvastatin 20 mg tablet See Rx Instructions .ROUTE .COMPLEX Qty: 90 1RF Dose Instruction: Take 1 tablet (20 mg) by mouth at bedtime Rx Instructions: Take 1 tablet (20 mg) by mouth at bedtime tramadol 50 mg tablet 50 mg PO TID PRN (Reason: pain) Qty: 90 0RF beta carotene 25,000 unit Capsule 25,000 unit PO DAILY Rx Instructions: administer with a meal niacinamide 500 mg Tablet 500 mg PO DAILY Jakafi 20 mg Tablet 10 mg PO BID Qty: 30 5RF Rx Instructions: take 0.5 tablet (10mg) by mouth 2 times daily biotin 10,000 mcg Capsule 10,000 mcg PO DAILY alpha lipoic acid 600 mg Tablet 600 mg PO BID Referrals: Jyoti Mcrae MD [Primary Care Provider] - Stand Alone Forms: Patient Portal/API
[2023-09-10] MEDS: CLINDAMYCIN 150 MG CAPSULE 300 MG PO (13:48)
== END 2023-09-10 14:08 | disposition home or self-care (01) ==
PROVIDERS: Emergency Provider Emergency Medicine; PCP Family Medicine
DX: L03.116 Cellulitis of left lower limb (principal)
CPT/HCPCS: 99283

== ENCOUNTER → 2023-09-26 11:08 | Outpatient (CLI) | payer OTHER, SELFPAY ==
[2023-09-12 14:52] VITALS: BMI 23.1
[2023-09-26 12:44] LABS: Appearance Urine UA CLEAR; Bilirubin Urine UA NEGATIVE (NEGATIVE); Color Urine UA YELLOW; Glucose Urine UA NEGATIVE (Negative); Ketones Urine UA NEGATIVE (NEGATIVE); Leukocyte Esterase Urine UA NEGATIVE (NEGATIVE); Nitrite Urine UA NEGATIVE (Negative); Occult Blood Urine UA NEGATIVE (Negative); Protein Urine UA NEGATIVE (Negative); Urobilinogen Urine UA 0.2 E.U./dL (0.2)
[2023-09-26 12:47] LABS: Bacteria Urine None Seen; Culture Indicated Urine Cult Not Indicated; RBC Urine None Seen (0-5/HPF); Squamous Epithelial Cell Urine None Seen (0-5/HPF); WBC Urine None Seen (0-5/HPF)
== END ==
PROVIDERS: PCP Family Medicine; Visit Provider Family Medicine
DX: N39.0 Urinary tract infection, site not specified (principal); N30.01 Acute cystitis with hematuria
CPT/HCPCS: 81001; 87086

== ENCOUNTER → 2023-10-06 14:55 | Outpatient (CLI) | payer OTHER, SELFPAY ==
[2023-09-12 14:52] VITALS: BMI 23.1
--- NOTE | 2023-10-06 14:59 | DI.MG.S_ITS ---
BILATERAL DIGITAL SCREENING MAMMOGRAM 3D/2D WITH CAD: 10/06/2023 CLINICAL: Routine screening. Comparison is made to exams dated: 09/22/2022 mammogram, 09/16/2021 mammogram, and 09/11/2020 mammogram - [facility]. There are scattered areas of fibroglandular density in both breasts (category b / 25%-50% glandular tissue). Current study was also evaluated with a Computer Aided Detection (CAD) system. No significant masses, calcifications, or other findings are seen in either breast. There has been no significant interval change. IMPRESSION: NEGATIVE There is no mammographic evidence of malignancy. A 1 year screening mammogram is recommended. This exam was interpreted at Station ID: [id number]. NOTE: For mammograms, a report in lay terms will be sent to the patient. Approximately 15% of breast malignancies will not be visualized mammographically. In the management of a palpable breast mass, a negative mammogram must not discourage biopsy of a clinically suspicious lesion. Electronically Signed By: Sujata Carolina M.D., PH.D eb/penrad:10/07/2023 08:26:44 letter sent: Normal Exam ACR BI-RADS Category 1: Negative [id number]
[2023-10-06 19:43] LABS: BUN Creatinine Ratio 18.8 (6-22); Blood Urea Nitrogen 27 mg/dL (7-17); Calcium 9.8 mg/dL (8.4-10.2); Carbon Dioxide 29 mmol/L (22-32); Chloride 101 mmol/L (98-107); Estimated Glomerular Filt Rate 35 mL/min (>60); Glucose 94 mg/dL (80-110); HEMOLYSIS < 15 (0-50); Potassium 4.8 mmol/L (3.4-5.1); Sodium 137 mmol/L (137-145)
[2023-10-07 17:38] LABS: Digoxin 0.7 ng/mL (0.8-2.0)
== END ==
PROVIDERS: Internal Medicine Cardiovascular Disease; PCP Family Medicine; Referring Provider Family Medicine; Visit Provider Family Medicine
DX: I50.22 Chronic systolic (congestive) heart failure (principal); I49.5 Sick sinus syndrome; Z95.0 Presence of cardiac pacemaker; Z12.31 Encounter for screening mammogram for malignant neoplasm of breast
CPT/HCPCS: 36415; 77063; 77067; 80048; 80162

== ENCOUNTER → 2023-10-10 14:16 | Outpatient (CLI) | payer OTHER, SELFPAY ==
[2023-09-12 14:52] VITALS: BMI 23.1
[2023-10-10 14:32] LABS: Appearance Urine UA CLEAR; Bilirubin Urine UA NEGATIVE (NEGATIVE); Color Urine UA YELLOW; Glucose Urine UA NEGATIVE (Negative); Ketones Urine UA 1+ (NEGATIVE); Leukocyte Esterase Urine UA NEGATIVE (NEGATIVE); Nitrite Urine UA NEGATIVE (Negative); Occult Blood Urine UA NEGATIVE (Negative); Protein Urine UA NEGATIVE (Negative); Urobilinogen Urine UA 0.2 E.U./dL (0.2)
[2023-10-10 14:37] LABS: pH Urine UA 5.5 (4.5-8.0)
[2023-10-10 14:38] LABS: Bacteria Urine None Seen; Culture Indicated Urine Cult Not Indicated; RBC Urine None Seen (0-5/HPF); Squamous Epithelial Cell Urine None Seen (0-5/HPF); WBC Urine None Seen (0-5/HPF)
== END ==
PROVIDERS: PCP Family Medicine; Referring Provider Family Medicine; Visit Provider Family Medicine
DX: N30.01 Acute cystitis with hematuria (principal)
CPT/HCPCS: 81001

== ENCOUNTER 2023-12-05 13:31 | Emergency (ER) | payer OTHER, SELFPAY ==
[2023-09-12 14:52] VITALS: BMI 23.1
[2023-12-05 13:39] VITALS: BP 130/74; PULSE 60; RESP 16; TEMP 36.9; O2SAT 98; BMI 22.3
[2023-12-05 14:14] LABS: Add Manual Diff / Slide Review NO; Basophils Absolute Auto 0 /uL (0-100); Basophils Percent Auto 0.3 % (0-2); Eosinophils Absolute Auto 0 /uL (0-450); Eosinophils Percent Auto 0.4 % (2-4); Hematocrit 32.2 % (36-46); Hemoglobin 10.9 g/dL (12.0-16.0); Lymphocytes Absolute Auto 900 /uL (1100-4500); Mean Corpuscular Hemoglobin 33.7 PG (26-34); Mean Corpuscular Volume 99.4 fL (80-100); Monocytes Absolute Auto 700 /uL (0-900); Monocytes Percent Auto 7.4 % (3-14); Neutrophils Absolute Auto 7500 /uL (1500-7000); Neutrophils Percent Auto 81.9 % (50-75); Platelet Count 389 X10^3/uL (150-400); Red Blood Cell Count 3.24 X10^6/uL (4.0-5.2); Red Cell Distribution Width 13.3 % (11.6-14.8); White Blood Cell Count 9.2 X10^3/uL (4.5-11.0)
[2023-12-05 14:24] LABS: Alanine Aminotransferase 36 IU/L (<35); Albumin 4.3 g/dL (3.5-5.0); Albumin Globulin Ratio 1.3 (1.0-2.8); Alkaline Phosphatase 118 U/L (38-126); Aspartate Aminotransferase 47 IU/L (14-36); BUN Creatinine Ratio 22.1 (6-22); Bilirubin Total 0.5 mg/dL (0.2-1.3); Blood Urea Nitrogen 33 mg/dL (7-17); Calcium 9.6 mg/dL (8.4-10.2); Carbon Dioxide 25 mmol/L (22-32); Chloride 100 mmol/L (98-107); Estimated Glomerular Filt Rate 34 mL/min (>60); Globulin 3.4 g/dL (1.7-4.1); Glucose 117 mg/dL (80-110); HEMOLYSIS < 15 (0-50); Lipase 145 U/L (23-300); Potassium 4.5 mmol/L (3.4-5.1); Sodium 137 mmol/L (137-145); Total Protein 7.7 g/dL (6.3-8.2)
--- NOTE | 2023-12-05 17:24 | DI.CT.S_ITS ---
PROCEDURE: CT ABDOMEN PELVIS W CON INDICATIONS: rectal pain + abd pain throughout, several days TECHNIQUE: After the administration of intravenous contrast, axial sections acquired from the lung bases to the pubic symphysis. Coronal and sagittal reformats were performed. For radiation dose reduction, the following was used: automated exposure control, adjustment of mA and/or kV according to patient size. COMPARISON: [facility], CT, ABDOMEN WITH CONTRAST, 03/15/2014, 14:24. [facility], CT, ABDOMEN/PELVIS WITH CONTRAST, 05/04/2010, 8:06. [facility], CT, ABDOMEN/PELVIS WITH CONTRAST, 07/19/2008, 9:57. FINDINGS: Image quality: Diagnostic. Lower Chest: Bibasilar atelectasis. Cardiomegaly. ABDOMEN: Liver: No solid mass. Gallbladder: Mildly distended gallbladder without evidence for wall thickening, pericholecystic stranding, or radiodense gallstones. Biliary ducts: No biliary dilation. Pancreas: No ductal dilation. Spleen: Size is within normal limits. Splenic calcifications Adrenal Glands: No adrenal nodules. Kidneys and Ureters: No hydronephrosis. No solid mass. No complex renal cystic lesion which requires follow up. Stomach and Bowel: No evidence for bowel obstruction. Stable postsurgical changes of the cecum/ascending colon. Circumferential wall thickening of the descending colon and sigmoid colon. Large amount of impacted appearing fecal material seen in the distal sigmoid colon and rectum with mild circumferential wall thickening and surrounding inflammatory changes. Scattered colonic diverticulosis. Peritoneum: No abnormal intraperitoneal fluid. No free air. Ventral Wall: No significant ventral hernia. Abdominal Nodes: No retroperitoneal or mesenteric adenopathy by size criteria. Vessels: Scattered atherosclerotic calcifications of the abdominal aorta and iliac vessels without aneurysmal dilatation. The inferior vena cava appears patent. PELVIS: Pelvic Organs: Unremarkable. Bladder: Urinary bladder is moderately distended. Pelvic Nodes: No enlarged lymph nodes. Miscellaneous: No inguinal hernias are seen. Bones: No acute vertebral body compression fractures. Multilevel spondylitic changes throughout the imaged spine. No suspicious osseous lesions. Status post left total hip arthroplasty. IMPRESSION: 1. Large amount of impacted appearing fecal material involving the distal sigmoid colon and rectum with associated circumferential wall thickening and surrounding inflammatory changes. Findings are suggestive of stercoral colitis. There are also scattered colonic diverticula without findings to suggest acute diverticulitis. 2. Moderate gallbladder distention without wall thickening or acute inflammatory changes. No radiodense gallstones identified. 3. Other chronic findings as above. Dictated by: Farrukh Craft M.D. on 12/05/2023 at 18:44 Approved by: Farrukh Craft M.D. on 12/05/2023 at 18:51
[2023-12-05 18:10] LABS: Digoxin 1.1 ng/mL (0.8-2.0)
[2023-12-05] MEDS: ACETAMINOPHEN IV 1,000 MG/100 ML VIAL 400 MG IV (18:47)
[2023-12-05] MEDS: MORPHINE 4 MG/ML INJ IV (18:47)
[2023-12-05] MEDS: SODIUM CHLORIDE 0.9% 1,000 ML 1000 ML IV (18:49)
[2023-12-05] MEDS: LACTULOSE 20 GM/30 ML SOLUTION PO (18:50)
[2023-12-05] MEDS: SENNOSIDES 8.6 MG TABLET 17.2 MG PO (18:51)
--- NOTE | 2023-12-05 19:02 | ED.ABDPAIN ---
HPI - Abdominal Pain General Chief Complaint: Abdominal Pain Stated Complaint: Rectal Pain Time Seen by Provider: 12/05/23 17:23 Source: patient and EMS Mode of arrival: EMS History of Present Illness HPI narrative: 88-year-old female presents for rectal pain. Patient told triage that she had not had a bowel movement in 2 days despite taking MiraLax and using an enema at home. In triage patient reported 10/10 rectal pain. My initial evaluation of this patient was several hours later. She was resting comfortably in the ED hallway bed, still endorsing rectal pain. Related Data Home Medications Medication Instructions Recorded Confirmed magnesium oxide 500 mg PO DAILY ##0 01/05/18 09/26/23 cholecalciferol (vitamin D3) 25 2,000 unit PO QDAY #0 tabs 06/19/18 09/26/23 mcg (1,000 unit) tablet (Vitamin D3) alpha lipoic acid 600 mg tablet 600 mg PO BID 06/21/20 09/26/23 biotin 10,000 mcg capsule 10,000 mcg PO DAILY 06/21/20 09/26/23 beta carotene 7,500 mcg (25,000 25,000 unit PO DAILY 07/19/22 09/26/23 unit) capsule niacinamide 500 mg tablet 500 mg PO DAILY 07/19/22 09/26/23 metoprolol succinate 25 mg 25 mg PO DAILY 04/13/23 09/26/23 tablet,extended release 24 hr digoxin 125 mcg (0.125 mg) tablet 125 mcg PO .EVERY OTHER DAY 05/17/23 09/26/23 losartan 25 mg tablet 12.5 mg PO .PM 05/17/23 09/26/23 spironolactone 25 mg tablet 12.5 mg PO DAILY PRN 05/17/23 09/26/23 Previous Rx's Medication Instructions Recorded diltiazem HCl 120 mg 120 mg PO QDAY #90 tabs 01/16/19 capsule,extended release 24 hr dabigatran etexilate 150 mg 150 mg PO BID #180 caps 03/14/19 capsule (Pradaxa) ruxolitinib 20 mg tablet (Jakafi) 10 mg (1/2 x 20 mg) PO BID #30 tabs 12/13/22 Disabled Parking #1 ea 12/22/22 levothyroxine 25 mcg tablet See Rx Instructions .Route 12/23/22 .COMPLEX #90 tabs gabapentin 600 mg tablet See Rx Instructions .Route 03/01/23 .COMPLEX #450 tabs escitalopram oxalate 5 mg tablet See Rx Instructions .Route 03/08/23 .COMPLEX #90 tabs atorvastatin 20 mg tablet See Rx Instructions .Route 07/28/23 .COMPLEX #90 tabs cefdinir 300 mg capsule 300 mg PO BID #14 caps 08/21/23 amoxicillin 875 mg-potassium 1 tab PO BID #10 tabs 09/02/23 clavulanate 125 mg tablet furosemide 20 mg tablet 40 mg (2 x 20 mg) PO DAILY #30 tabs 09/09/23 clindamycin HCl 300 mg capsule 300 mg PO QID #40 caps 09/10/23 clindamycin HCl 300 mg capsule 300 mg PO QID #40 caps 09/10/23 tramadol 50 mg tablet 50 mg PO TID PRN pain #90 tabs 11/18/23 omeprazole 20 mg capsule,delayed 20 mg PO DAILY #30 caps 11/22/23 release Allergies Allergy/AdvReac Type Severity Reaction Status Date / Time adhesive [ADHESIVE] Allergy Mild SENSITIVE Verified 09/26/23 10:52 hydroxyurea [HYDROXYUREA] Allergy Mild ITCHY Verified 09/26/23 10:52 hydroxyzine [HYDROXYZINE] Allergy Mild ITCHY Verified 09/26/23 10:52 codeine [CODEINE] Allergy Unknown dizzyness/f Verified 09/26/23 10:52 ainting Review of Systems Review of Systems Narrative: Negative except as noted above Patient History Medical History Fracture of distal fibula Chronic anticoagulation Facet arthropathy, lumbosacral Spondylosis without myelopathy or radiculopathy, lumbosacral region GERD (gastroesophageal reflux disease) Lumbosacral spondylosis with radiculopathy Postherpetic neuralgia (~2012) Idiopathic peripheral autonomic neuropathy, unspecified Malignant neoplasm of colon, unspecified (~2007) Cyst of thyroid Disrupted sleep-wake cycle Peripheral neuropathy (~2012) DJD (degenerative joint disease) Arthralgia 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) Cardiac arrhythmia Myelofibrosis Polycythemia vera (~2006) Colorectal cancer, stage I (~2007) Stage 3 chronic kidney disease (12/04/14) 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) Disturbance in sleep behavior (04/24/14) 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) Polycythemia vera Essential hypertension Acquired hypothyroidism (02/01/13) Chronic atrial fibrillation Low back pain Sciatica Surgical History History of local excision of skin lesion History of bone marrow biopsy (~2013) S/P medial meniscectomy of right knee (~1999) History of thyroid surgery Status post hysterectomy (~1974) Status post colectomy (~2007) Presence of cardiac pacemaker (~2005) Social History marital status: household members: spouse Smoking Status: Never smoker alcohol intake: current substance use type: does not use well-balanced diet: daily or most days Smoking Status: Never smoker alcohol intake frequency: 0-2 drinks per day Substance Use Type: does not use Exam Initial Vital Signs Initial Vital Signs: Vital Signs Temperature 98.4 F 12/05/23 13:39 Pulse Rate 60 12/05/23 13:39 Respiratory Rate 16 12/05/23 13:39 Blood Pressure 130/74 12/05/23 13:39 Pulse Oximetry 98 12/05/23 13:39 Oxygen Delivery Method Room Air 12/05/23 13:39 Const: Awake, alert, no acute distress, nontoxic appearing GI: Atraumatic, soft, nontender, nondistended, no rebound, no guarding MSK: Atraumatic, full range of motion, pulses equal Rectal: deferred due to patient location (hallway bed) Skin: Warm, Dry, intact, no rashes Neuro: AO x3, CN II-XII grossly intact, moves all extremities Course Orders Ordered: ED Orders 12/05/23 20:00 Urine Microscopic Stat Discontinued Medications Glycerin (Glycerin Supp Adult 1 Supp) 1 each TX NOW ONE Stop: 12/05/23 18:10 Last Admin: 12/05/23 19:34 Dose: 1 each Documented By: HOMAR Sodium Chloride (Normal Saline 0.9%) 1,000 mls @ 1,000 mls/hr IV BOLUS ONE Stop: 12/05/23 18:23 Last Infusion: 12/05/23 19:41 Dose: Infused Documented By: Admin: 12/05/23 18:49 Dose: 1,000 mls/hr Documented By: ASHLEY Acetaminophen (Ofirmev) 1,000 mg in 100 mls @ 400 mls/hr IV NOW ONE Stop: 12/05/23 17:39 Last Infusion: 12/05/23 19:28 Dose: Infused Documented By: Admin: 12/05/23 18:47 Dose: 400 mls/hr Documented By: ASHLEY Lactulose (Lactulose 20 Gm/30 Ml Solution) 20 gm PO NOW ONE Stop: 12/05/23 18:10 Last Admin: 12/05/23 18:50 Dose: 20 gm Documented By: ASHLEY Mineral Oil (Mineral Oil 1 Each Enema) 1 each TX NOW ONE Stop: 12/05/23 20:14 Last Admin: 12/05/23 20:19 Dose: 1 each Documented By: HOMAR Morphine Sulfate (Morphine 4 Mg/Ml Inj) 4 mg IV NOW ONE Stop: 12/05/23 18:12 Last Admin: 12/05/23 18:47 Dose: 4 mg Documented By: ASHLEY Ondansetron HCl (Ondansetron 4 Mg Odt) 4 mg PO NOW PRN PRN Reason: Nausea And Vomiting Ondansetron HCl (Ondansetron 4 Mg/2 Ml Inj) 4 mg IV NOW PRN PRN Reason: Nausea And Vomiting Polyethylene Glycol/Electrolytes ([id number]/Sod Sulf,Bicarb,Cl/Kcl 4,000 Ml Solution) 4,000 ml PO NOW ONE Stop: 12/05/23 19:48 Last Admin: 12/05/23 20:19 Dose: Not Given Documented By: HOMAR Sennosides (Sennosides 8.6 Mg Tablet) 17.2 mg PO NOW ONE Stop: 12/05/23 18:11 Last Admin: 12/05/23 18:51 Dose: 17.2 mg Documented By: ASHLEY Vital Signs Vital signs: Vital Signs - 8 hr 12/05/23 21:19 Respiratory Rate 20 Oxygen Delivery Method Room Air MDM - Abdominal Pain Differential Diagnosis Differential diagnosis: Likely abdominal pain, acute appendicitis and calculus of kidney Lab Data 12/05/23 14:00 12/05/23 14:00 Labs: Lab Results 12/05/23 12/05/23 Range/Units 14:00 20:00 WBC 9.2 (4.5-11.0) X10^3/uL RBC 3.24 L (4.0-5.2) X10^6/uL Hgb 10.9 L (12.0-16.0) g/dL Hct 32.2 L (36-46) % MCV 99.4 (80-100) fL MCH 33.7 (26-34) PG MCHC 34.0 (30-36) % RDW 13.3 (11.6-14.8) % Plt Count 389 (150-400) X10^3/uL Neut % (Auto) 81.9 H (50-75) % Lymph % (Auto) 10.0 L (25-40) % [place] % (Auto) 7.4 (3-14) % Eos % (Auto) 0.4 L (2-4) % Baso % (Auto) 0.3 (0-2) % Neut # (Auto) 7500 H (0121-5639) /uL Lymph # (Auto) 900 L (4120-3519) /uL [place] # (Auto) 700 (0-900) /uL Eos # (Auto) 0 (0-450) /uL Baso # (Auto) 0 (0-100) /uL Sodium 137 (137-145) mmol/L Potassium 4.5 (3.4-5.1) mmol/L Chloride 100 (98-107) mmol/L Carbon Dioxide 25 (22-32) mmol/L BUN 33 H (7-17) mg/dL Creatinine 1.49 H (0.52-1.04) mg/dL Estimated GFR 34 L (>60) mL/min BUN/Creatinine Ratio 22.1 H (6-22) Glucose 117 H (80-110) mg/dL Calcium 9.6 (8.4-10.2) mg/dL Total Bilirubin 0.5 (0.2-1.3) mg/dL AST 47 H (14-36) IU/L ALT 36 H (<35) IU/L Alkaline Phosphatase 118 (38-126) U/L Total Protein 7.7 (6.3-8.2) g/dL Albumin 4.3 (3.5-5.0) g/dL Globulin 3.4 (1.7-4.1) g/dL Albumin/Globulin Ratio 1.3 (1.0-2.8) Lipase 145 (23-300) U/L Urine RBC None seen (0-5/HPF) Urine WBC None seen (0-5/HPF) Ur Squamous Epith Cells None seen (0-5/HPF) Urine Bacteria None seen (None) Ur Culture Indicated? Cult not indicated Vol Urine Centrifuged 10ml (spun) Digoxin 1.1 (0.8-2.0) ng/mL Point of care testing: Urine Dip Bedside Urine Glucose Negative Bedside Urine Bilirubin - Negative Bedside Urine Ketone - Negative Urine Specific [place] 1.010 Bedside Urine Occult Blood ++ Bedside Urine pH 7.0 Bedside Urine Protein - Negative Bedside Urine Urobilinogen - Negative Bedside Urine Nitrite - Negative Bedside Urine Leukocytes - Negative Esterase MDM Narrative Medical decision making narrative: Patient brought in by EMS from home for tentative 10 rectal pain. On my exam in the emergency department patient is resting comfortably on ED stretcher in no acute distress. She continues to endorse rectal pain. Abdomen soft, nontender to palpation. Laboratory work and imaging ordered on patient presentation to the emergency department reviewed. Patient has no leukocytosis, hemoglobin at baseline. Patient has chronic kidney disease, GFR and creatinine are at baseline. CT imaging shows large fecal burden with surrounding inflammatory changes concerning for stercoral colitis. Discussed case with on-call surgery Dr. Barone, who stated that as long as abdomen was soft, no peritoneal signs, pain well controlled patient could be discharged home with bowel regimen. Patient given stool softeners as well as a suppository in the emergency department. She subsequently had passage of large bowel movement which she states alleviated her rectal pain, however her anus still felt very ?sore?. Since patient is already passing stool, abdomen is soft, and laboratory work is normal I do believe patient is safe for discharge home. She was informed of all lab and imaging findings, counseled on strict ED return precautions. She was encouraged to take daily MiraLax to keep stools soft. Patient states that she already has miralax at home and we will incorporate into her daily medication regimen. Discharge Plan Departure Patient Disposition: Home Clinical Impression: Constipation, Pain, rectal Instructions: DI for Constipation Activity Restrictions/Additional Instructions: Take a packet of MiraLax daily with plenty of water. Increase your fiber intake to help prevent worsening constipation. You may use [id number] medications such as preparation H for your rectal pain while you are healing. Prescriptions: No Action metoprolol succinate 25 mg tablet extended release 24 hr 25 mg PO DAILY cefdinir 300 mg capsule 300 mg PO BID Qty: 14 0RF amoxicillin-pot clavulanate 875-125 mg tablet 1 tab PO BID Qty: 10 0RF furosemide 20 mg tablet 40 mg PO DAILY Qty: 30 0RF spironolactone 25 mg tablet 12.5 mg PO DAILY PRN losartan 25 mg tablet 12.5 mg PO .PM digoxin 125 mcg (0.125 mg) tablet 125 mcg PO .EVERY OTHER DAY magnesium oxide 400 MG capsule 500 mg PO DAILY Qty: 0 cholecalciferol (vitamin D3) [Vitamin D3] 1,000 unit tablet 2,000 unit PO QDAY Qty: 0 diltiazem HCl 120 mg capsule,extended release 24hr 120 mg PO QDAY Qty: 90 3RF Pradaxa 150 mg capsule 150 mg PO BID Qty: 180 3RF (DME) Disabled Parking See Rx Instructions .ROUTE .MEDSUPPLY Qty: 1 0RF Rx Instructions: I find this patient to be medically disabled and qualified for Disabled Parking as indicated, and signed, on the Accompanying Disabled Parking Application for Individuals levothyroxine 25 mcg tablet See Rx Instructions .ROUTE .COMPLEX Qty: 90 3RF Hold Instructions: trying Naturthroid Dose Instruction: Take 1 tablet (0.025 mg) by mouth daily Rx Instructions: Take 1 tablet (0.025 mg) by mouth daily gabapentin 600 mg tablet See Rx Instructions .ROUTE .COMPLEX Qty: 450 1RF Dose Instruction: Take 2 tablets (1,200 mg) by mouth in the AM, 1 tablet (600 mg) at noon, AND 2 tablets (1,200 mg) in the PM for shingles nerve pain. Rx Instructions: Take 2 tablets (1,200 mg) by mouth in the AM, 1 tablet (600 mg) at noon, AND 2 tablets (1,200 mg) in the PM for shingles nerve pain. escitalopram oxalate 5 mg tablet See Rx Instructions .ROUTE .COMPLEX Qty: 90 3RF Dose Instruction: Take 1 tablet (5 mg) by mouth daily Rx Instructions: Take 1 tablet (5 mg) by mouth daily atorvastatin 20 mg tablet See Rx Instructions .ROUTE .COMPLEX Qty: 90 1RF Dose Instruction: Take 1 tablet (20 mg) by mouth at bedtime Rx Instructions: Take 1 tablet (20 mg) by mouth at bedtime tramadol 50 mg tablet 50 mg PO TID PRN (Reason: pain) Qty: 90 0RF omeprazole 20 mg capsule,delayed release(DR/EC) 20 mg PO DAILY Qty: 30 2RF Rx Instructions: Take once/day for 2 weeks, can increase to twice/day if symptoms not resolving. beta carotene 25,000 unit Capsule 25,000 unit PO DAILY Rx Instructions: administer with a meal niacinamide 500 mg Tablet 500 mg PO DAILY Jakafi 20 mg Tablet 10 mg PO BID Qty: 30 5RF Rx Instructions: take 0.5 tablet (10mg) by mouth 2 times daily biotin 10,000 mcg Capsule 10,000 mcg PO DAILY alpha lipoic acid 600 mg Tablet 600 mg PO BID clindamycin HCl 300 mg capsule 300 mg PO QID Qty: 40 0RF clindamycin HCl 300 mg capsule 300 mg PO QID Qty: 40 0RF Referrals: Jyoti Mcrae MD [Primary Care Provider] - Stand Alone Forms: Patient Portal/API
[2023-12-05] MEDS: GLYCERIN SUPP ADULT 1 SUPP 1 EACH PR (19:34)
[2023-12-05] MEDS: MINERAL OIL 1 EACH ENEMA PR (20:19)
[2023-12-05 20:35] LABS: Bacteria Urine None Seen; Culture Indicated Urine Cult Not Indicated; RBC Urine None Seen (0-5/HPF); Squamous Epithelial Cell Urine None Seen (0-5/HPF); Urine Volume 10mL (spun); WBC Urine None Seen (0-5/HPF)
[2023-12-05 21:19] VITALS: RESP 20
== END 2023-12-05 21:21 | disposition home or self-care (01) ==
PROVIDERS: Emergency Medicine; Emergency Provider Emergency Medicine; PCP Family Medicine
DX: K59.00 Constipation, unspecified (principal); K62.89 Other specified diseases of anus and rectum
CPT/HCPCS: 36415; 74177; 80053; 80162; 81003; 81015; 83690; 85025; 93005; 96365; 96375; 99284; J0136; J2270; Q9967

== ENCOUNTER → 2023-12-22 10:32 | Outpatient (CLI) | payer OTHER, SELFPAY ==
[2023-09-12 14:52] VITALS: BMI 23.1
--- NOTE | 2023-12-22 10:37 | DI.RAD.S_ITS ---
PROCEDURE: [place] ANKLE INJECTION MR/CT RT INDICATIONS: RT ANKLE FX COMPARISON: None. TECHNIQUE: After informed consent had been obtained, the ankle was examined fluoroscopically in the lateral projection, and a site for needle placement chosen for entry into the tibiotalar joint from an anterior approach. Care was taken to locate the dorsalis pedis artery beforehand. The skin was prepped and draped in a sterile fashion, and 1% Xylocaine infiltrated from skin down to joint capsule. A hypodermic needle was inserted into the joint, and a small amount of iodinated contrast media injected to confirm intra-articular placement of the needle tip. This was followed by additional 6 mL of iodinated contrast media into the joint space. The needle was removed and a dressing was applied. The patient was given postprocedural instructions and sent to the CT suite for CT imaging. The attending radiologist was present during invasive portions of the procedure, and performed all intra-articular injections. FINDINGS: A single fluoroscopic spot image demonstrates intra-articular location of injected iodinated contrast. IMPRESSION: Successful fluoroscopically guided administration of iodinated contrast solution into the tibiotalar joint for CT arthrogram. Approved by: Sujata Carolina M.D. on 12/22/2023 at 14:07
--- NOTE | 2023-12-22 10:38 | DI.CT.S_ITS ---
PROCEDURE: CT ANKLE RIGHT WITH CON INDICATIONS: RT ANKLE FX TECHNIQUE: Noncontrast 1-1.5 mm axial sections acquired from above the tibiotalar joint to the bottom of the calcaneus, with coronal and sagittal reformats. COMPARISON: [facility], CR, XR ANKLE 3+ VIEWS RIGHT, 10/11/2023, 14:42. [facility] [place], CR, XR ANKLE 3 VIEWS WEIGHT BEARING RIGHT, 08/17/2023, 15:01. [facility] [place], CR, XR ANKLE 3 VIEWS WEIGHT BEARING RIGHT, 07/21/2023, 11:33. [facility], CR, XR ANKLE 3+ VIEWS RIGHT, 12/01/2023, 13:57. [facility], , [place] ANKLE INJECTION MR/CT RT, 12/22/2023, 10:56. FINDINGS: Image quality: Excellent. Bones: Oblique fracture of the distal fibular metaphysis is again seen with healing changes. There appears to be partial osseous bridging across the fracture line, estimated at 40% healed. Small ossification is seen adjacent to the anterolateral tibial plafond near the insertion of the anterior tibiofibular ligament. No osseous bridging is seen in this location. There is focal disruption of the articular cartilage of the anterior lateral tibial plafond. The remaining articular cartilages throughout the mortise joint appear to be maintained. No osteochondral lesion is seen at the talar dome. Contrast material is also seen extending into the posterior subtalar facet and in the medial flexor tendon sheaths. No new osseous fracture is seen. There there is generalized osteopenia. Soft tissues: No loose body is seen in the mortise joint. The ligaments and tendons are not well evaluated with CT. The visualized musculature is normal in bulk. IMPRESSION: 1. Healing minimally displaced oblique fracture of the distal fibular metaphysis is again seen with partial osseous bridging, estimated at 40% healed. 2. Small mildly displaced intra-articular fracture at the anterolateral aspect of the distal tibial plafond without significant osseous bridging. Approved by: Tom Bustamante M.D. on 12/22/2023 at 15:33
[2023-12-22] MEDS: LIDOCAINE 1% 20 ML INJ (11:17)
== END ==
PROVIDERS: PCP Family Medicine; Referring Provider Family Medicine Sports Medicine; Visit Provider Family Medicine Sports Medicine
DX: S82.891G Other fracture of right lower leg, subsequent encounter for closed fracture with delayed healing (principal); R26.89 Other abnormalities of gait and mobility; M25.371 Other instability, right ankle
CPT/HCPCS: 20605; 73701; 77002